=== PATIENT | female | born 1980 | race Caucasian/White ===

== ENCOUNTER 2020-06-09 11:59 | Emergency (ER) | payer OTHER, SELFPAY ==
--- NOTE | ~2020-06-09 | XR_ITS ---
EXAMINATION: XR tibia fibula LT 2V DATE: 06/09/2020 12:58 INDICATION: Left lower leg pain post fall TECHNIQUE: Anteroposterior and lateral views of the left tibia and fibula were obtained. COMPARISON: None. FINDINGS: Alignment is normal. No fracture. Joint spaces are normal. Small plantar calcaneal spur. Soft tissues are unremarkable. No left ankle joint effusion. IMPRESSION: 1. No acute osseous abnormality. Reviewed, dictated and finalized at location A. WASHER
[2020-06-09 12:05] VITALS: BP 149/99; PULSE 121; RESP 20; TEMP 36.9; O2SAT 98
--- NOTE | 2020-06-09 12:27 | ED.LOWEXIN ---
HPI - Extremity Injury (Lower) General Chief Complaint: Extremity Injury, Lower Stated Complaint: 40 YO female w/ slipped and fell, comes into ER c/o left leg pain since fall. Denies LOC or head injury. Related Data Home Medications Medication Instructions Recorded Confirmed atenolol 25 mg PO DAILY 06/09/20 06/09/20 Allergies Allergy/AdvReac Type Severity Reaction Status Date / Time amoxicillin [From Augmentin] Allergy Hives Verified 06/09/20 12:13 clavulanic acid Allergy Hives Verified 06/09/20 12:13 [From Augmentin] ketorolac Allergy Hives Verified 06/09/20 12:13 Penicillins Allergy Hives Verified 06/09/20 12:13 hydrocodone AdvReac Vomiting Verified 06/09/20 12:13 tramadol AdvReac Vomiting Verified 06/09/20 12:13 Review of Systems Review of Systems: All systems reviewed & are unremarkable except as noted in HPI and below Constitutional: Constitutional: Reports no additional constitutional complaints Eyes: Eyes: Reports no additional eye complaints ENT: Reports system reviewed and no additional complaints, except as documented Cardiovascular: Cardiovascular: Reports no additional cardiovascular complaints Respiratory: Respiratory: Reports no additional respiratory complaints Gastrointestinal: Gastrointestinal: Reports no additional gastrointestinal complaints Genitourinary: Genitourinary: Reports no additional female genitourinary complaints Integumentary/Breasts: Skin/Breast: Reports system reviewed and no additional complaints, except as docu Neurologic: Reports system reviewed and no additional complaints, except as documented Psychiatric: Psychiatric: Reports no additional psychiatric complaints [facility] Past Medical History Medical History HTN (hypertension) Kidney stones Exam Const: General: healthy appearing, no acute distress and alert Orientation/consciousness: patient oriented x3 HENMT: Head: normal to inspection Eyes: Conjunctivae: conjunctivae normal Pupils: Equal, round and reactive pupils present Direct Ophthalmoscopy: no photophobia Neck: Neck: normal visual inspection Chest: Chest palpation & inspection: normal inspection of the chest Resp: Effort & Inspection: normal respiratory effort Cardio: Rate: regular rate Rhythm: regular rhythm GI: Inspection: non-distended GI Palp: Yes Soft to palpation, No Tenderness to palpation present (GI), No Guarding due to palpation present (GI) and No Rigid due to palpation Percussion: Yes normal to percussion : General: Yes no CVA tenderness Skin: General skin exam: normal color Rashes: no rashes Neuro: General: patient oriented x3, moves all extremities, no meningeal signs, no focal motor deficits and CN's II-XI intact bilaterally Cranial nerves: Yes Nystagmus not present Speech: normal speech Gait exam (Neuro): Normal gait present Extrem: Other: Left anterior leg pain Psych: Mental Status: mental status grossly normal Thought content: Yes Normal thought content present Course Course Emergency Course: X-Rays engative. D/C home on NSAID's for pain Vital Signs Vital signs: Vital Signs Temperature 98.4 F 06/09/20 12:05 Pulse Rate 121 H 06/09/20 12:05 Respiratory Rate 20 06/09/20 12:05 Blood Pressure 149/99 H 06/09/20 12:05 Pulse Oximetry 98 06/09/20 12:05 Temperature 98.4 F 06/09/20 12:05 Pulse Rate 121 H 06/09/20 12:05 Respiratory Rate 20 06/09/20 12:05 Blood Pressure 149/99 H 06/09/20 12:05 Pulse Oximetry 98 06/09/20 12:05 MDM - Extremity Injury (Lower) Differential Diagnosis Differential diagnosis: Likely ankle sprain and strain, acute internal derangement of knee and other (leg contusion) Medical Records Attestation: I reviewed the patient's medical records. Critical Care Time Critical Care Time Critical Care Time: No Discharge Plan Discharge Clinical Impression: Ankle sprain and strain Contusion Robson
[2020-06-09 14:03] VITALS: RESP 16
== END 2020-06-09 14:05 | disposition home or self-care (01) ==
PROVIDERS: Emergency Provider Family Medicine; PCP Family Medicine
DX: S93.402A Sprain of unspecified ligament of left ankle, initial encounter (principal); S80.12XA Contusion of left lower leg, initial encounter; W19.XXXA Unspecified fall, initial encounter
CPT/HCPCS: 73590; 99283

== ENCOUNTER 2020-08-03 06:37 | Emergency (ER) | payer OTHER, SELFPAY ==
--- NOTE | ~2020-08-03 | CT_ITS ---
EXAMINATION: CT abdomen pelvis wo con EXAM DATE: 08/03/2020 08:17 INDICATION: Bilateral flank pain left worse than right, constipation and diarrhea x2wks. TECHNIQUE: Spiral CT of the abdomen and pelvis was performed without contrast. Axial, coronal and sag ittal images were reviewed. The dose-length product (DLP) for this examination was 782.29 mGy-cm. T he exposure was tailored according to patient size (auto mA exposure control), and iterative reconstr uction (ASIR) was used as additional dose reduction technique. There is no prior study for compariso n. FINDINGS: Small clusters of right calyceal stones, largest cluster measuring about 3 x 6 mm in inferi or calyx. There are regions of right renal cortical scarring. There is 3 mm left inferior calyceal st one. No ureteral stones or hydronephrosis. The uterus is retroverted and morphologically normal. T he bladder is unremarkable. The liver, spleen, adrenal glands and pancreas are unremarkable. There are cholecystectomy clips. There is no retroperitoneal or pelvic lymphadenopathy. Small umbilical fat-containing hernia. The appendix is normal. The stomach and small bowel are unremarkable. There is expected amount of c olonic stool. No free intraperitoneal gas. The heart is normal in size. There are no pericardial or pleural effusions. Several bibasilar pleural-based lung nodules 3 mm or less, likely postinfecti ous. Mild lumbar levoscoliosis. IMPRESSION: 1. Bilateral nephrolithiasis. 2. No hydronephrosis or acute intra-abdominal findings. Reviewed, dictated and finalized at location B. [facility]
[2020-08-03 06:59] VITALS: BP 138/85; PULSE 103; RESP 18; TEMP 36.7; O2SAT 99
--- NOTE | 2020-08-03 07:08 | PC.NURSE ---
covid tested 07/19/20--negative.
--- NOTE | 2020-08-03 07:09 | PC.NURSE ---
Report to KIZZY Castellon.
[2020-08-03] MEDS: ACETAMINOPHEN 500 MG TABLET 1000 MG PO (07:38)
[2020-08-03] MEDS: ONDANSETRON INJ 4 MG/2 ML VIAL IV PUSH (07:39)
[2020-08-03 07:47] LABS: Basophils Absolute Auto 0.06 K/mm3 (0.00-0.10); Basophils Percent Auto 0.7 % (0.0-1.0); Eosinophils Absolute Auto 0.13 K/mm3 (0.02-0.50); Eosinophils Percent Auto 1.6 % (1.0-6.0); Hematocrit 38.7 % (35.0-49.0); Hemoglobin 13.3 g/dL (12.0-15.0); Immature Granulocyte Absolute 0.03 K/mm3 (0.00-0.00); Immature Granulocyte Percent A 0.4 % (0.0-0.0); Lymphocytes Absolute Auto 2.81 K/mm3 (1.10-4.50); Lymphocytes Percent Auto 34.9 % (18.0-42.0); Mean Corpuscular HGB Conc 34.4 g/dL (32.0-36.0); Mean Corpuscular Hemoglobin 30.5 pg (27.0-31.0); Mean Corpuscular Volume 88.8 fL (78.0-102.0); Mean Platelet Volume 9.5 fl (9.2-11.8); Monocytes Absolute Auto 0.53 K/mm3 (0.10-0.90); Monocytes Percent Auto 6.6 % (2.0-11.0); Neutrophils Absolute Auto 4.5 K/mm3 (1.7-7.2); Neutrophils Percent Auto 55.8 % (50.0-70.0); Platelet Count Result 325 K/mm3 (150-420); Red Blood Count 4.36 M/mm3 (4.20-5.40); Red Cell Distribution Width 12.2 % (11.6-14.4); White Blood Count 8.1 K/mm3 (4.8-10.8)
[2020-08-03 07:56] LABS: Add Urine Microscopic? NO; Appearance Urine Clear (Clear); Bilirubin Urine Negative (Negative); Blood Urine Negative (Negative); Color Urine Yellow (Yellow); Glucose Urine UA Negative (Negative); Ketones Urine Negative (Negative); Leukocyte Esterase Ur Negative (Negative); Nitrate Urine Negative (Negative); Protein Urine Negative (Negative); Specific Grav Ur 1.025 (1.010-1.020)
[2020-08-03 08:01] LABS: Pregnancy On Board Control Positive; Urine Pregnancy Test Negative
[2020-08-03 08:02] LABS: Alanine Aminotransferase 43 U/L (14-59); Albumin Level 3.4 g/dL (3.4-5.0); Alkaline Phosphatase 78 U/L (46-116); Anion Gap 9 mmol/L (8-16); Aspartate Amino Transferase 14 U/L (15-37); Bilirubin,Total 0.4 mg/dL (0.00-1.00); Blood Urea Nitrogen 12 mg/dL (7-18); Calcium 8.4 mg/dL (8.5-10.1); Carbon Dioxide 25 mmol/L (21-32); Chloride 105 mmol/L (98-108); Estimated CRCL calculation 50 ml/min; Estimated Glomerular Filt Rate 47; Glucose 107 mg/dL (70-99); Osmolality Calculated 287 mOsm/kg (285-295); Potassium 3.3 mmol/L (3.5-5.1); Sodium 139 mmol/L (136-145); Total Protein 6.9 g/dL (6.4-8.2)
--- NOTE | 2020-08-03 08:38 | ED.BACK ---
HPI - Back Pain/Injury General Chief Complaint: Back Pain/Injury Stated Complaint: Pain middle of back Time Seen by Provider: 08/03/20 07:13 Source: patient Mode of arrival: ambulatory History of Present Illness HPI Narrative: This is a 40-year-old female with a history of kidney stones presents with lower back and flank pain with no dysuria no hematuria no fever chills does have back pain that she describes as dull ache about 6/10 with nausea. Currently there is no chest pain no shortness of breath patient does have a history of small kidney stones has been worked up in the past they are small and nonobstructing at that time. MD elicited complaint: back pain Pertinent past history: prior back pain Onset (ago): day(s) Timing: intermittent Severity: moderate Pain scale (0-10): 6 Similar Symptoms Previously: Yes Quality: dull Location: left flank and right flank Related Data Home Medications Medication Instructions Recorded Confirmed atenolol 25 mg PO DAILY 06/09/20 08/03/20 omeprazole 20 mg PO DAILY 08/03/20 08/03/20 Allergies Allergy/AdvReac Type Severity Reaction Status Date / Time amoxicillin [From Augmentin] Allergy Hives Verified 06/09/20 12:13 clavulanic acid Allergy Hives Verified 06/09/20 12:13 [From Augmentin] ketorolac Allergy Hives Verified 06/09/20 12:13 Penicillins Allergy Hives Verified 06/09/20 12:13 hydrocodone AdvReac Vomiting Verified 06/09/20 12:13 tramadol AdvReac Vomiting Verified 06/09/20 12:13 Review of Systems Review of Systems: All systems reviewed & are unremarkable except as noted in HPI and below PMFSH Past Medical History Medical History HTN (hypertension) Kidney stones Exam Const: General: no acute distress and alert Orientation/consciousness: patient oriented x3 HENMT: Head: normal to inspection Eyes: Conjunctivae: conjunctivae normal Pupils: Equal, round and reactive pupils present EOM: EOMs intact bilaterally Neck: Neck: normal visual inspection, no lymphadenopathy and no meningeal signs Chest: Chest palpation & inspection: normal inspection of the chest Resp: Effort & Inspection: normal respiratory effort Auscultation: clear to auscultation bilaterally Cardio: Rate: regular rate Rhythm: regular rhythm GI: Auscultation: normal bowel sounds : General: Yes no CVA tenderness Urinary Catheter: Urinary Catheter: patent and draining and urine clear Back/Spine/Pelvis: Back: CVA tenderness Skin: General skin exam: normal color Rashes: no rashes Neuro: General: patient oriented x3, moves all extremities and no meningeal signs Extrem: General: normal to inspection and no pedal edema Psych: Appearance: grossly normal Mental Status: mental status grossly normal Affect: normal affect Course Course Emergency Course: Reassessment of patient back pain has improved with g of Tylenol and nausea improved with Zofran continues to have some discomfort but reviewed CT scan and labs with the patient and advised that she is stable to go and to follow with her primary care doctor. Vital Signs Vital signs: Vital Signs Temperature 36.7 C 08/03/20 06:59 Pulse Rate 103 H 08/03/20 06:59 Respiratory Rate 18 08/03/20 06:59 Blood Pressure 138/85 08/03/20 06:59 Pulse Oximetry 99 08/03/20 06:59 Temperature 36.7 C 08/03/20 06:59 Pulse Rate 103 H 08/03/20 06:59 Respiratory Rate 18 08/03/20 06:59 Blood Pressure 138/85 08/03/20 06:59 Pulse Oximetry 99 08/03/20 06:59 MDM - Back Pain/Injury Lab Data Result diagrams: 08/03/20 07:41 08/03/20 07:41 Labs: Lab Results 08/03/20 08/03/20 08/03/20 Range/Units 07:30 07:30 07:41 WBC 8.1 (4.8-10.8) K/mm3 RBC 4.36 (4.20-5.40) M/mm3 Hgb 13.3 (12.0-15.0) g/dL Hct 38.7 (35.0-49.0) % MCV 88.8 (78.0-102.0) fL MCH 30.5 (27.0-31.0) pg MCHC 34.4 (32.0-36.0) g/dL RDW
[2020-08-03 08:55] VITALS: BP 120/88; PULSE 60; RESP 18; O2SAT 98
== END 2020-08-03 08:55 | disposition home or self-care (01) ==
PROVIDERS: Emergency Provider Emergency Medicine; PCP Family Medicine
DX: N20.0 Calculus of kidney (principal); M54.40 Lumbago with sciatica, unspecified side
CPT/HCPCS: 36415; 74176; 80053; 81003; 81025; 85025; 96374; 99283; 99284; J2405

== ENCOUNTER 2020-10-07 13:57 | Emergency (ER) | payer OTHER, SELFPAY ==
[2020-10-07 14:17] VITALS: BP 130/93; PULSE 91; RESP 20; TEMP 36.8; O2SAT 100
--- NOTE | 2020-10-07 14:30 | ED.EAR ---
HPI - Ear Problem General Chief complaint: Ear Stated complaint: inner ear pain Source: patient Mode of arrival: ambulatory Limitations: no limitations History of Present Illness HPI Narrative: this is a 40-year-old female that presents with some chronic sinus discomfort was given a Z-Tian that she finished a course of, and does continue to have muffled crackly bilateral ears with right ear having some drainage with sinus congestion and pressure with postnasal drip low-grade fevers with no shortness of breath no chest pain. MD Complaint: ear pain and decreased hearing Location: right ear ( bilateral ear pressure but right ear has some drainage) Duration: constant Severity: moderate Relieving factors: nothing Exacerbating factors: nothing Context: Reports recent illness Discharge from ear: Reports yes - clear Associated symptoms ear: fever Treatment prior to arrival: none Related Data Home Medications Medication Instructions Recorded Confirmed atenolol 25 mg PO DAILY 06/09/20 10/07/20 omeprazole 40 mg PO DAILY 10/07/20 10/07/20 sucralfate 1 g PO QID 10/07/20 10/07/20 Allergies Allergy/AdvReac Type Severity Reaction Status Date / Time amoxicillin [From Augmentin] Allergy Hives Verified 10/07/20 14:24 clavulanic acid Allergy Hives Verified 10/07/20 14:24 [From Augmentin] ketorolac Allergy Hives Verified 10/07/20 14:24 Penicillins Allergy Hives Verified 10/07/20 14:24 hydrocodone AdvReac Vomiting Verified 10/07/20 14:24 tramadol AdvReac Vomiting Verified 10/07/20 14:24 Review of Systems Review of Systems: All systems reviewed & are unremarkable except as noted in HPI and below PMFSH Past Medical History Medical History HTN (hypertension) Kidney stones Social History Social History Gender identity (if verbalized by the patient): Female Exam Const: General: no acute distress and alert Orientation/consciousness: patient oriented x3 HENMT: Head: normal to inspection Other: Bilateral ear dullness with right ear having some drainage with frontal sinus pressure Eyes: Conjunctivae: conjunctivae normal Pupils: Equal, round and reactive pupils present Neck: Neck: normal visual inspection, no lymphadenopathy and no meningeal signs Chest: Chest palpation & inspection: normal inspection of the chest Resp: Effort & Inspection: normal respiratory effort Auscultation: clear to auscultation bilaterally Cardio: Rate: regular rate Rhythm: regular rhythm Urinary Catheter: Urinary Catheter: patent and draining Back/Spine/Pelvis: Back: no CVA tenderness Skin: General skin exam: normal color Rashes: no rashes Neuro: General: patient oriented x3 and moves all extremities Psych: Appearance: grossly normal Mental Status: mental status grossly normal Affect: normal affect Course Course Emergency Course: patient with some dizziness will prescribe meclizine and will give her a dose while here in the emergency department with some antibiotic ear drop to the right ear. Vital Signs Vital signs: Vital Signs Temperature 36.8 C 10/07/20 14:17 Pulse Rate 10/07/20 14:17 Respiratory Rate 10/07/20 14:17 Blood Pressure 130/93 H 10/07/20 14:17 Pulse Oximetry 100 10/07/20 14:17 Temperature 36.8 C 10/07/20 14:17 Pulse Rate 10/07/20 14:17 Respiratory Rate 10/07/20 14:17 Blood Pressure 130/93 H 10/07/20 14:17 Pulse Oximetry 100 10/07/20 14:17 Medical Decision Making Vital Signs Vital Signs: Vital Signs Temperature 36.8 C 10/07/20 14:17 Pulse Rate 10/07/20 14:17 Respiratory Rate 10/07/20 14:17 Blood Pressure 130/93 H 10/07/20 14:17 Pulse Oximetry 100 10/07/20 14:17 Temperature 36.8 C 10/07/20 14:17 Pulse Rate 10/07/20 14:17 Respiratory Rate 10/07/20 14:17 Blood Pressure 130/93 H 10/07/20 14:17 Pulse Oxime
[2020-10-07] MEDS: NEOMYCIN/POLYMYXIN/HYDROCORT OT SUSP 10 ML BTL (*BKC) 3 DROP RIGHT EAR (14:37)
[2020-10-07] MEDS: MECLIZINE HCL 25 MG TABLET PO (14:37)
[2020-10-07 14:46] VITALS: BP 120/82; PULSE 90; RESP 20; TEMP 36.7; O2SAT 100
== END 2020-10-07 14:56 | disposition home or self-care (01) ==
PROVIDERS: Emergency Provider Emergency Medicine; PCP Family Medicine
DX: H66.91 Otitis media, unspecified, right ear (principal); J01.10 Acute frontal sinusitis, unspecified; I10 Essential (primary) hypertension; Z87.442 Personal history of urinary calculi
CPT/HCPCS: 99283; A9270

== ENCOUNTER 2021-01-14 14:52 | Emergency (ER) | payer OTHER, MEDICAID, SELFPAY ==
[2021-01-14 14:55] VITALS: BP 135/91; PULSE 102; RESP 16; TEMP 37; O2SAT 98
--- NOTE | 2021-01-14 15:29 | ED.HA ---
HPI - Headache General Chief Complaint: Headache Stated Complaint: headache,congestion,fever Time Seen by Provider: 01/14/21 14:57 Source: patient and RN notes reviewed Mode of arrival: ambulatory Limitations: no limitations History of Present Illness MD elicited complaint: headache Onset (ago): day(s) (4) Onset description: gradually Location: generalized Severity: mild Pain scale (0-10): 3 Quality & Timing: aching Exacerbating factors: none Relieving factors: nothing Associated symptoms: fever Treatments prior to arrival: none Related Data Home Medications Medication Instructions Recorded Confirmed atenolol 25 mg PO DAILY 06/09/20 01/14/21 omeprazole 40 mg PO DAILY 10/07/20 01/14/21 sucralfate 1 g PO QID 10/07/20 01/14/21 ondansetron HCl 4 mg PO DAILY PRN 01/14/21 01/14/21 Allergies Allergy/AdvReac Type Severity Reaction Status Date / Time amoxicillin [From Augmentin] Allergy Hives Verified 10/07/20 14:24 clavulanic acid Allergy Hives Verified 10/07/20 14:24 [From Augmentin] ketorolac Allergy Hives Verified 10/07/20 14:24 Penicillins Allergy Hives Verified 10/07/20 14:24 hydrocodone AdvReac Vomiting Verified 10/07/20 14:24 tramadol AdvReac Vomiting Verified 10/07/20 14:24 Review of Systems Review of Systems: All systems reviewed & are unremarkable except as noted in HPI and below Constitutional: Constitutional: Reports as per HPI and Reports no additional constitutional complaints Eyes: Eyes: Reports as per HPI and Reports no additional eye complaints ENT: Reports system reviewed and no additional complaints, except as documented and Reports as per HPI Cardiovascular: Cardiovascular: Reports as per HPI and Reports no additional cardiovascular complaints Respiratory: Respiratory: Reports as per HPI and Reports no additional respiratory complaints Gastrointestinal: Gastrointestinal: Reports as per HPI and Reports no additional gastrointestinal complaints Genitourinary: Genitourinary: Reports no additional female genitourinary complaints and Reports as per HPI Musculoskeletal: Musculoskeletal: Reports no additional musculoskeletal complaints and Reports as per HPI Integumentary/Breasts: Skin/Breast: Reports system reviewed and no additional complaints, except as docu and Reports as per HPI Neurologic: Reports system reviewed and no additional complaints, except as documented and Reports as per HPI Psychiatric: Psychiatric: Reports no additional psychiatric complaints and Reports as per HPI Endocrine: Endocrine: Reports no additional endocrine complaints and Reports as per HPI Hematologic/Lymphatic: Hematologic/Lymphatic: Reports no additional hematologic/lymphatic complaints and Reports as per HPI Allergic/Immunologic: Allergic/Immunologic: Reports no additional allergic/immunologic complaints and Reports as per HPI PMFSH Past Medical History Medical History HTN (hypertension) Kidney stones Social History Social History Gender identity (if verbalized by the patient): Female Exam Const: General: no acute distress and alert Nutritional Appearance: well nourished Orientation/consciousness: patient oriented x3 Limitations: no limitations HENMT: Head: normal to inspection Ears: external ears normal and TM's normal bilaterally General nose exam: Normal external nose present and Normal nares present Mouth: Yes lip normal and Yes moist mucous membranes abnormal Teeth and gingiva: dentition normal Eyes: Conjunctivae: conjunctivae normal Pupils: Equal, round and reactive pupils present EOM: EOMs intact bilaterally Neck: Neck: normal visual inspection Chest: Chest palpation & inspection: normal inspection of the chest Resp: Effort & Inspection: normal respiratory effort Auscultation: clear to auscultation bilaterally Cardio: Rate: regular rate Rhythm: regular rhythm
[2021-01-14] MEDS: guaiFENesin/DEXTROMETHORPHAN 5 ML UDC 10 ML PO (15:37)
[2021-01-14] MEDS: ACETAMINOPHEN 325 MG TABLET 650 MG PO (15:37)
[2021-01-14 16:05] VITALS: RESP 16
== END 2021-01-14 16:05 | disposition home or self-care (01) ==
PROVIDERS: Emergency Provider Emergency Medicine
DX: J02.9 Acute pharyngitis, unspecified (principal)
CPT/HCPCS: 73140; 99283; A9270

== ENCOUNTER 2021-01-24 04:20 | Emergency (ER) | payer OTHER, MEDICAID, SELFPAY ==
--- NOTE | ~2021-01-24 | CT_ITS ---
EXAMINATION: CT diagnostic chest wo con DATE: 01/24/2021 05:44 INDICATION: Heart palpitations TECHNIQUE: Computed tomography (CT) of the chest was performed without intravenous contrast. The dose -length product was 166.64 mGy-cm. Automated exposure control and iterative reconstruction technique were employed. COMPARISON: No prior studies for comparison. FINDINGS: Heart size normal. No significant pleural or pericardial effusion. No thoracic lymphadenopa thy. No pneumothorax. No endobronchial lesions. Small 3 mm right middle lobe nodule, pleural-based, i mage 63. No focal airspace disease. 3 mm nodules in the left lung, likely benign. No acute osseous ab normality. Status post cholecystectomy. There are splenic artery calcifications. IMPRESSION: 1. No acute abnormality of the chest. 2: Small bilateral 3 mm pulmonary nodules, likely benign. Consider follow-up low dose CT chest in 12 months. Reviewed, dictated and finalized at location A. IMPRESSION: 1. No acute abnormality of the chest. 2: Small bilateral 3 mm pulmonary nodules, likely benign. Consider follow-up l ow dose CT chest in 12 months.
[2021-01-24 04:20] VITALS: BP 132/88; PULSE 93; RESP 20; TEMP 37.1; O2SAT 99
--- NOTE | 2021-01-24 04:33 | ECG_ITS ---
Measurements Intervals [place] Rate: 92 P: 34 AL: 144 QRS: -22 QRSD: 97 T: 28 QT: 378 QTc: 468 Interpretive Statements SINUS RHYTHM DELAYED PRECORDIAL R/S TRANSITION BORDERLINE ST ABNORMALITY- HIGH LATERAL LEADS BORDERLINE ECG Electronically Signed On 01-24-2021 7:52:41 CDT by Laz Edwards D.O.
[2021-01-24 05:21] LABS: Basophils Absolute Auto 0.03 K/mm3 (0.00-0.10); Basophils Percent Auto 0.6 % (0.0-1.0); Eosinophils Absolute Auto 0.08 K/mm3 (0.02-0.50); Eosinophils Percent Auto 1.5 % (1.0-6.0); Hematocrit 41.6 % (35.0-49.0); Hemoglobin 14.1 g/dL (12.0-15.0); Immature Granulocyte Absolute 0.01 K/mm3 (0.00-0.00); Immature Granulocyte Percent A 0.2 % (0.0-0.0); Lymphocytes Absolute Auto 2.35 K/mm3 (1.10-4.50); Lymphocytes Percent Auto 44.5 % (18.0-42.0); Mean Corpuscular HGB Conc 33.9 g/dL (32.0-36.0); Mean Corpuscular Hemoglobin 30.1 pg (27.0-31.0); Mean Corpuscular Volume 88.7 fL (78.0-102.0); Mean Platelet Volume 9.8 fl (9.2-11.8); Monocytes Absolute Auto 0.38 K/mm3 (0.10-0.90); Monocytes Percent Auto 7.2 % (2.0-11.0); Neutrophils Absolute Auto 2.4 K/mm3 (1.7-7.2); Platelet Count Result 265 K/mm3 (150-420); Red Blood Count 4.69 M/mm3 (4.20-5.40); Red Cell Distribution Width 12.5 % (11.6-14.4); White Blood Count 5.3 K/mm3 (4.8-10.8)
[2021-01-24 05:30] LABS: SPREG INTERNAL CONTROL Positive; Serum Qual hCG NEG
[2021-01-24 05:35] LABS: Add Urine Microscopic? NO; Appearance Urine Clear (Clear); Bilirubin Urine Negative (Negative); Blood Urine Negative (Negative); Color Urine Light Yellow (Yellow); Glucose Urine UA Negative (Negative); Ketones Urine Negative (Negative); Leukocyte Esterase Ur Negative (Negative); Nitrate Urine Negative (Negative); Protein Urine Negative (Negative); Specific Grav Ur <= 1.005 (1.010-1.020); Urobilinogen Urine 0.2 mg/dL (0.2-1.0); pH Urine 5.5 (5.0-8.0)
[2021-01-24 05:38] LABS: Alanine Aminotransferase 38 U/L (14-59); Albumin Level 3.8 g/dL (3.4-5.0); Alkaline Phosphatase 75 U/L (46-116); Anion Gap 13 mmol/L (8-16); Aspartate Amino Transferase 16 U/L (15-37); Bilirubin,Total 0.6 mg/dL (0.00-1.00); Blood Urea Nitrogen 7 mg/dL (7-18); Calcium 9.1 mg/dL (8.5-10.1); Carbon Dioxide 22 mmol/L (21-32); Chloride 108 mmol/L (98-108); Estimated Glomerular Filt Rate > 60; Glucose 95 mg/dL (70-99); Osmolality Calculated 294 mOsm/kg (285-295); Potassium 3.8 mmol/L (3.5-5.1); Sodium 143 mmol/L (136-145); Total Protein 7.3 g/dL (6.4-8.2)
[2021-01-24 05:59] LABS: NT Pro B Type Natriuretic Pept 78 pg/mL (0-125)
[2021-01-24] MEDS: SODIUM CHLORIDE 0.9% IV 500 ML 999 ML IV CONT (06:01)
[2021-01-24] MEDS: ONDANSETRON INJ 4 MG/2 ML VIAL IV PUSH (06:02)
--- NOTE | 2021-01-24 06:47 | ED.ARRPALP ---
HPI - Arrhythmia/Palpitations General Chief Complaint: Arrhythmia/Palpitations Stated Complaint: Bradycardia Time Seen by Provider: 01/24/21 04:24 Source: patient and RN notes reviewed Mode of arrival: ambulatory Limitations: no limitations History of Present Illness MD complaint: rapid heart beat, heart racing and palpitations Onset (ago): hour(s) (2) Duration: constant Severity: mild Context: occurred during rest Associated symptoms: anxiety Treatments prior to arrival: other (none) Related Data Home Medications Medication Instructions Recorded Confirmed atenolol 25 mg PO DAILY 06/09/20 01/24/21 omeprazole 40 mg PO DAILY 10/07/20 01/24/21 sucralfate 1 g PO QID 10/07/20 01/24/21 Allergies Allergy/AdvReac Type Severity Reaction Status Date / Time amoxicillin [From Augmentin] Allergy Hives Verified 10/07/20 14:24 clavulanic acid Allergy Hives Verified 10/07/20 14:24 [From Augmentin] ketorolac Allergy Hives Verified 10/07/20 14:24 Penicillins Allergy Hives Verified 10/07/20 14:24 hydrocodone AdvReac Vomiting Verified 10/07/20 14:24 tramadol AdvReac Vomiting Verified 10/07/20 14:24 Review of Systems Review of Systems: All systems reviewed & are unremarkable except as noted in HPI and below Constitutional: Constitutional: Reports as per HPI and Reports no additional constitutional complaints Eyes: Eyes: Reports as per HPI and Reports no additional eye complaints ENT: Reports system reviewed and no additional complaints, except as documented and Reports as per HPI Cardiovascular: Cardiovascular: Reports as per HPI and Reports no additional cardiovascular complaints Respiratory: Respiratory: Reports as per HPI and Reports no additional respiratory complaints Gastrointestinal: Gastrointestinal: Reports as per HPI and Reports no additional gastrointestinal complaints Genitourinary: Genitourinary: Reports no additional female genitourinary complaints and Reports as per HPI Musculoskeletal: Musculoskeletal: Reports no additional musculoskeletal complaints and Reports as per HPI Integumentary/Breasts: Skin/Breast: Reports system reviewed and no additional complaints, except as docu and Reports as per HPI Neurologic: Reports system reviewed and no additional complaints, except as documented and Reports as per HPI Psychiatric: Psychiatric: Reports no additional psychiatric complaints and Reports as per HPI Endocrine: Endocrine: Reports no additional endocrine complaints and Reports as per HPI Hematologic/Lymphatic: Hematologic/Lymphatic: Reports no additional hematologic/lymphatic complaints and Reports as per HPI Allergic/Immunologic: Allergic/Immunologic: Reports no additional allergic/immunologic complaints and Reports as per HPI [facility] Past Medical History Medical History HTN (hypertension) Kidney stones Social History Social History Gender identity (if verbalized by the patient): Female Exam Const: General: no acute distress and alert Nutritional Appearance: well nourished Orientation/consciousness: patient oriented x3 HENMT: Head: normal to inspection Ears: external ears normal and TM's normal bilaterally General nose exam: Normal external nose present and Normal nares present Mouth: Yes lip normal and Yes moist mucous membranes Teeth and gingiva: dentition normal Eyes: Conjunctivae: conjunctivae normal Pupils: Equal, round and reactive pupils present EOM: EOMs intact bilaterally Neck: Neck: normal visual inspection Chest: Chest palpation & inspection: normal inspection of the chest Resp: Effort & Inspection: normal respiratory effort Auscultation: clear to auscultation bilaterally Cardio: Rate: regular rate Rhythm: regular rhythm GI: GI Palp: Yes Soft to palpation Percussion: Yes normal to percussion and Yes other (non-tender) Auscultation: normal bowel sounds
[2021-01-24] MEDS: LORazepam (*CRX) 0.5 MG TABLET PO (06:50)
[2021-01-24 06:51] VITALS: BP 140/89; PULSE 87; RESP 20; TEMP 36.8; O2SAT 96
== END 2021-01-24 06:55 | disposition home or self-care (01) ==
PROVIDERS: Emergency Provider Emergency Medicine; PCP Family Medicine
DX: R00.2 Palpitations (principal); F41.9 Anxiety disorder, unspecified
CPT/HCPCS: 36415; 71250; 80053; 81003; 83605; 83880; 84484; 84703; 85025; 93005; 96361; 96374; 99283; 99284; A9270; J2405; J7040

== ENCOUNTER 2021-04-05 19:39 | Emergency (ER) | payer OTHER, SELFPAY ==
[2021-04-05 20:04] VITALS: BP 153/109; PULSE 100; RESP 18; TEMP 36.7; O2SAT 100
--- NOTE | 2021-04-05 20:14 | ED.BACK ---
HPI - Back Pain/Injury General Chief Complaint: Back Pain/Injury Stated Complaint: back pain Source: patient Mode of arrival: ambulatory Limitations: no limitations History of Present Illness HPI Narrative: this is a 32-year-old female that presents with some lower back pain mainly right-sided with some spasm with negative straight leg raising test no radiation of her pain no flank pain no fever chills no known injuries has a chronic back pain that she takes ibuprofen and Flexeril for. There is no dysuria no hematuria no fever chills no saddle paresthesias. MD elicited complaint: back pain Pertinent past history: prior back pain Onset (ago): week(s) Timing: intermittent Severity: mild Pain scale (0-10): 4 Similar Symptoms Previously: Yes Quality: aching and spasming Related Data Home Medications Medication Instructions Recorded Confirmed atenolol 25 mg PO DAILY 06/09/20 01/24/21 sucralfate 1 g PO QID 10/07/20 04/05/21 omeprazole 40 mg PO DAILY 04/05/21 04/05/21 Allergies Allergy/AdvReac Type Severity Reaction Status Date / Time amoxicillin [From Augmentin] Allergy Hives Verified 04/05/21 20:09 clavulanic acid Allergy Hives Verified 04/05/21 20:09 [From Augmentin] ketorolac Allergy Hives Verified 04/05/21 20:09 Penicillins Allergy Hives Verified 04/05/21 20:09 hydrocodone AdvReac Vomiting Verified 04/05/21 20:09 tramadol AdvReac Vomiting Verified 04/05/21 20:09 Review of Systems Review of Systems: All systems reviewed & are unremarkable except as noted in HPI and below PMFSH Past Medical History Medical History HTN (hypertension) Kidney stones Social History Social History Gender identity (if verbalized by the patient): Female Exam Const: General: no acute distress Orientation/consciousness: patient oriented x3 HENMT: Head: normal to inspection Eyes: Conjunctivae: conjunctivae normal Pupils: Equal, round and reactive pupils present Chest: Chest palpation & inspection: normal inspection of the chest Resp: Effort & Inspection: normal respiratory effort : General: Yes no CVA tenderness Urinary Catheter: Urinary Catheter: patent and draining Back/Spine/Pelvis: Back: no CVA tenderness Skin: General skin exam: normal color Rashes: no rashes Neuro: General: patient oriented x3 Psych: Mental Status: mental status grossly normal Affect: normal affect Course Course Emergency Course: Patient with some chronic back pain has cause some spasm currently on Flexeril will give her a dose of Tylenol and advised to follow-up with primary Vital Signs Vital signs: Vital Signs Temperature 36.7 C 04/05/21 20:04 Pulse Rate 100 04/05/21 20:04 Respiratory Rate 18 04/05/21 20:04 Blood Pressure 153/109 H 04/05/21 20:04 Pulse Oximetry 100 04/05/21 20:04 Temperature 36.7 C 04/05/21 20:04 Pulse Rate 100 04/05/21 20:04 Respiratory Rate 18 04/05/21 20:04 Blood Pressure 153/109 H 04/05/21 20:04 Pulse Oximetry 100 04/05/21 20:04 Critical Care Time Critical Care Time Critical Care Time: No Discharge Plan Discharge Clinical Impression: Strain of lumbar region Qualifiers: Encounter type: initial encounter Qualified Code(s): S39.012A - Strain of muscle, fascia and tendon of lower back, initial encounter Patient Disposition: Home, Self-Care Condition: Stable Instructions: Antibiotic Form, Acute Low Back Pain (ED) Additional Instructions: Advised continue Flexeril and ibuprofen and follow-up with primary care physician as soon as possible for further evaluation treatment. Prescriptions: No Action atenolol 25 mg tablet 25 mg PO DAILY RF: 0 sucralfate 1 gram tablet 1 g PO QID RF: 0 lorazepam [Ativan] 0.5 mg tablet 0.5 mg PO BID PRN (Reason: anxiety) Qty: 6 RF: 0 omeprazole 40 mg capsule,delayed release(DR/EC)
[2021-04-05] MEDS: ACETAMINOPHEN 500 MG TABLET 1000 MG PO (20:18)
== END 2021-04-05 20:21 | disposition home or self-care (01) ==
PROVIDERS: Emergency Provider Emergency Medicine; PCP Family Medicine
DX: S39.012A Strain of muscle, fascia and tendon of lower back, initial encounter (principal)
CPT/HCPCS: 99282

== ENCOUNTER 2021-06-01 11:41 | Emergency (ER) | payer OTHER, SELFPAY ==
[2021-06-01 11:47] VITALS: BP 139/95; PULSE 104; RESP 16; TEMP 36.9; O2SAT 98
--- NOTE | 2021-06-01 11:58 | ED.BACK ---
HPI - Back Pain/Injury General Chief Complaint: Back Pain/Injury Stated Complaint: rt collar bone & mid back pain Time Seen by Provider: 06/01/21 12:00 Source: patient Mode of arrival: ambulatory Limitations: no limitations History of Present Illness HPI Narrative: 41-year-old woman with a history of back pain and anxiety comes in today complaining of pain in her right shoulder, her mid back On the left, and chest pressure and upper portions. She denies shortness of breath, fever, nausea, vomiting, cough or cold symptoms, vomiting. She states that she has IBS and has had nausea and diarrhea lately. She has had the COVID vaccine. She states she had a cardiac catheterization in January 2021 which was normal. Her mother this past year and states this is her 1st Nichole and birthday without her. She takes Benadryl every night to help her sleep. MD elicited complaint: back pain Pertinent past history: prior back pain Onset (ago): day(s) (2) Timing: constant Severity: moderate Quality: aching (Back and neck) and other (Chest pressure) Location: thoracic spine Radiation: none Exacerbating factors: none Relieving factors: none Associated symptoms: myalgias Related Data Home Medications Medication Instructions Recorded Confirmed omeprazole 40 mg PO DAILY 04/05/21 04/05/21 cephalexin 500 mg PO TID 06/01/21 06/01/21 dicyclomine 10 mg PO DAILY 06/01/21 06/01/21 Allergies Allergy/AdvReac Type Severity Reaction Status Date / Time amoxicillin [From Augmentin] Allergy Hives Verified 06/01/21 11:59 clavulanic acid Allergy Hives Verified 06/01/21 11:59 [From Augmentin] codeine Allergy Anxiety Verified 06/01/21 12:01 fentanyl Allergy Anxiety Verified 06/01/21 12:01 ketorolac Allergy Hives Verified 06/01/21 11:59 morphine Allergy Anxiety Verified 06/01/21 12:01 Penicillins Allergy Hives Verified 06/01/21 11:59 hydrocodone AdvReac Vomiting Verified 06/01/21 11:59 tramadol AdvReac Vomiting Verified 06/01/21 11:59 Review of Systems Review of Systems: All systems reviewed & are unremarkable except as noted in HPI and below Constitutional: Constitutional: Denies chills, Denies fever(s) and Denies weakness Eyes: Eyes: Denies change in vision and Denies photophobia ENT: Denies nasal congestion and Denies sore throat Cardiovascular: Cardiovascular: Reports chest pain and Denies radiating jaw, neck or arm pain Respiratory: Respiratory: Denies cough and Denies dyspnea Gastrointestinal: Gastrointestinal: Denies abdominal pain, Reports diarrhea, Reports nausea and Denies vomiting Genitourinary: Genitourinary: Denies hematuria, Denies nocturia and Denies dysuria Musculoskeletal: Musculoskeletal: Denies arthralgias and Denies joint swelling Integumentary/Breasts: Skin/Breast: Denies pruritus, Denies erythema and Denies rash Neurologic: Denies vertigo, Denies dizziness, Denies syncope and Denies focal weakness Psychiatric: Psychiatric: Reports anxiety and Reports depression Endocrine: Endocrine: Denies fatigue and Denies polydipsia Allergic/Immunologic: Allergic/Immunologic: Denies lip swelling and Denies throat swelling PMFSH Past Medical History Medical History HTN (hypertension) Kidney stones Social History Social History (Updated 06/01/21 @ 12:15 by Carter Augustin MD) Tobacco type: e-cigarettes/vaping Alcohol intake: never Substance use: never Living arrangements: with family Gender identity (if verbalized by the patient): Female Exam Const: General: healthy appearing Orientation/consciousness: patient oriented x3 Limitations: no limitations and altered mental status Other: Tearful HENMT: Ears: external ears normal, TM's normal bilaterally and EAC's normal General nose exam: Normal nares present Face and sinus: normal facial exam Mouth: Yes moist mucous membranes Throat: posterior oropharynx normal Eyes: Conjuncti
--- NOTE | 2021-06-01 12:08 | ECG_ITS ---
Measurements Intervals [place] Rate: 94 P: 48 WI: 152 QRS: -23 QRSD: 79 T: 42 QT: 362 QTc: 454 Interpretive Statements SINUS RHYTHM DELAYED PRECORDIAL R/S TRANSITION BORDERLINE ECG Electronically Signed On 06-01-2021 17:02:45 PHYSICIAN SPECIALIST by Laz Edwards D.O.
[2021-06-01 12:22] LABS: Appearance Urine Clear (Clear); Bilirubin Urine Negative (Negative); Color Urine Light Yellow (Yellow); Glucose Urine UA Negative (Negative); Ketones Urine Negative (Negative); Leukocyte Esterase Ur Negative (Negative); Nitrate Urine Negative (Negative); Protein Urine Negative (Negative); Specific Grav Ur <= 1.005 (1.010-1.020); Urobilinogen Urine 0.2 mg/dL (0.2-1.0)
[2021-06-01 12:23] LABS: Add Urine Microscopic? NO; Blood Urine Negative (Negative)
[2021-06-01 12:45] VITALS: BP 138/90; PULSE 97; RESP 16; TEMP 36.6; O2SAT 98
== END 2021-06-01 12:52 | disposition home or self-care (01) ==
PROVIDERS: Emergency Provider Emergency Medicine; PCP Family Medicine
DX: M54.2 Cervicalgia (principal); M54.6 Pain in thoracic spine; F41.9 Anxiety disorder, unspecified
CPT/HCPCS: 81003; 93005; 99283

== ENCOUNTER 2021-06-17 13:43 | Emergency (ER) | payer OTHER, SELFPAY ==
--- NOTE | ~2021-06-17 | XR_ITS ---
EXAMINATION: XR chest 2V DATE: 06/17/2021 16:46 INDICATION: Chest heaviness TECHNIQUE: PA and lateral views of the chest are obtained. COMPARISON: None available FINDINGS: The lungs are free of acute opacities. There is no pleural effusion or pneumothorax. The ca rdiomediastinal silhouette is normal. The visualized bones and soft tissues are unremarkable. Surgica l clips in the right upper quadrant are likely from prior cholecystectomy. IMPRESSION: 1. No acute cardiopulmonary abnormality. Reviewed, dictated and finalized at location [facility]. GATOR OVERHEAD
--- NOTE | ~2021-06-17 | CT_ITS ---
EXAMINATION: CT soft tissue neck w con DATE: 06/17/2021 16:47 INDICATION: Odynophagia TECHNIQUE: Computed tomography (CT) of the neck was performed with 75 cc of Omnipaque 350 intravenous contrast. The dose-length product (DLP) was 434.33 mGy-cm. Automated exposure control and iterative reconstruction technique were employed. COMPARISON: None FINDINGS: The soft tissues are unremarkable. No fluid collection or cellulitis are identified. There are no pathologically enlarged cervical lymph nodes. The visualized osseous structures are unremarkab le. The prevertebral soft tissues are normal. IMPRESSION: 1. No CT correlate for the patient's symptoms. Reviewed, dictated and finalized at location [facility]. ODITY MERCHANT
--- NOTE | 2021-06-17 14:10 | ED.URI ---
HPI - URI/Sore Throat General Chief Complaint: Upper Respiratory Infection Stated Complaint: dizziness, headache, nausea, sore throat Time Seen by Provider: 06/17/21 14:10 Source: patient Mode of arrival: ambulatory Limitations: no limitations History of Present Illness HPI Narrative: 41-year-old woman comes in today complaining of foreign body sensation or lump in her throat, throat pain, diarrhea, headache and nausea that has been present for over 3 weeks. She states she had blood in her stool at the onset of the diarrhea and she states she is unable to tolerate solid food. She also complains of chest heaviness but no shortness of breath, cough, fever, vomiting. Zofran is not helping her nausea. MD elicited complaint: sore throat and nasal congestion Onset (ago): week(s) (3) Consistency: constant and progressively worsening Severity: severe Able to tolerate fluids by mouth: Yes Exacerbating factors: swallowing Relieving factors: nothing Context: sick contacts (Children and are sick) Associated symptoms: headache, nasal congestion, sore throat and chest pain (Heaviness) Treatments prior to arrival: other (Zofran) Related Data Home Medications Medication Instructions Recorded Confirmed omeprazole 20 mg PO BID 04/05/21 06/17/21 Allergies Allergy/AdvReac Type Severity Reaction Status Date / Time amoxicillin [From Augmentin] Allergy Hives Verified 06/01/21 11:59 clavulanic acid Allergy Hives Verified 06/01/21 11:59 [From Augmentin] codeine Allergy Anxiety Verified 06/01/21 12:01 fentanyl Allergy Anxiety Verified 06/01/21 12:01 ketorolac Allergy Hives Verified 06/01/21 11:59 morphine Allergy Anxiety Verified 06/01/21 12:01 Penicillins Allergy Hives Verified 06/01/21 11:59 hydrocodone AdvReac Vomiting Verified 06/01/21 11:59 tramadol AdvReac Vomiting Verified 06/01/21 11:59 Review of Systems Constitutional: Constitutional: Denies chills, Reports fatigue, Denies fever(s) and Reports weakness Eyes: Eyes: Denies change in vision and Denies photophobia ENT: Reports dysphagia, Reports nasal congestion and Reports sore throat Cardiovascular: Cardiovascular: Reports chest pain (Pressure) and Denies radiating jaw, neck or arm pain Respiratory: Respiratory: Denies cough, Denies dyspnea and Denies wheezing Gastrointestinal: Gastrointestinal: Reports abdominal pain, Reports diarrhea, Reports nausea and Reports vomiting Genitourinary: Genitourinary: Denies nocturia and Denies dysuria Musculoskeletal: Musculoskeletal: Denies back pain, Denies arthralgias and Denies joint swelling Integumentary/Breasts: Skin/Breast: Denies pruritus, Denies erythema and Denies rash Neurologic: Denies vertigo, Reports dizziness, Denies syncope and Reports headache(s) Allergic/Immunologic: Allergic/Immunologic: Denies lip swelling and Denies throat swelling PMFSH Past Medical History Medical History HTN (hypertension) Kidney stones Social History Social History Tobacco type: e-cigarettes/vaping Alcohol intake: never Substance use: never Gender identity (if verbalized by the patient): Female Exam Const: General: healthy appearing and alert Orientation/consciousness: patient oriented x3 Limitations: no limitations Other: Mild acute distress. HENMT: Ears: external ears normal and EAC's normal Face and sinus: normal facial exam Mouth: Yes dry mucous membranes Throat: posterior oropharynx normal Eyes: Conjunctivae: conjunctivae normal Pupils: Equal, round and reactive pupils present EOM: EOMs intact bilaterally Resp: Effort & Inspection: normal respiratory effort and not labored Auscultation: clear to auscultation bilaterally, no rales, no rhonchi and wheezes (Scattered late expiratory) Cardio: Rate: regular rate Rhythm: regular rhythm Heart sounds: no murmurs GI: GI Palp: No Soft to palpati
[2021-06-17 14:20] VITALS: BP 134/93; BP 137/98; BP 139/97; PULSE 100; PULSE 105; PULSE 117
[2021-06-17 14:29] VITALS: BP 140/94; PULSE 104; RESP 20; TEMP 36.6; O2SAT 98
[2021-06-17 14:33] VITALS: O2SAT 98
[2021-06-17] MEDS: SODIUM CHLORIDE 0.9% IV 1,000 ML 999 ML IV CONT ×2 (14:46→15:56)
[2021-06-17] MEDS: METOCLOPRAMIDE HCL INJ 10 MG/2 ML VIAL IV PUSH (14:48)
[2021-06-17 15:06] LABS: SARS-CoV-2 RNA PCR Negative (Negative)
[2021-06-17 15:08] LABS: Basophils Absolute Auto 0.04 K/mm3 (0.00-0.10); Basophils Percent Auto 0.6 % (0.0-1.0); Eosinophils Absolute Auto 0.01 K/mm3 (0.02-0.50); Eosinophils Percent Auto 0.2 % (1.0-6.0); Hematocrit 39.3 % (35.0-49.0); Hemoglobin 13.4 g/dL (12.0-15.0); Immature Granulocyte Absolute 0.02 K/mm3 (0.00-0.00); Immature Granulocyte Percent A 0.3 % (0.0-0.0); Lymphocytes Absolute Auto 1.01 K/mm3 (1.10-4.50); Lymphocytes Percent Auto 15.6 % (18.0-42.0); Mean Corpuscular HGB Conc 34.1 g/dL (32.0-36.0); Mean Corpuscular Hemoglobin 30.5 pg (27.0-31.0); Mean Corpuscular Volume 89.3 fL (78.0-102.0); Mean Platelet Volume 9.7 fl (9.2-11.8); Monocytes Absolute Auto 0.37 K/mm3 (0.10-0.90); Monocytes Percent Auto 5.7 % (2.0-11.0); Neutrophils Percent Auto 77.6 % (50.0-70.0); Platelet Count Result 291 K/mm3 (150-420); Red Cell Distribution Width 11.7 % (11.6-14.4); White Blood Count 6.5 K/mm3 (4.8-10.8)
[2021-06-17 15:10] LABS: Appearance Urine Clear (Clear); Bilirubin Urine Negative (Negative); Color Urine Light Yellow (Yellow); Glucose Urine UA Negative (Negative); Ketones Urine 1+ (Negative); Leukocyte Esterase Ur Negative (Negative); Nitrate Urine Negative (Negative); Protein Urine Negative (Negative); Specific Grav Ur <= 1.005 (1.010-1.020); Urobilinogen Urine 0.2 mg/dL (0.2-1.0)
[2021-06-17 15:13] LABS: Pregnancy On Board Control Positive; Urine Pregnancy Test Negative
[2021-06-17 15:20] LABS: Add Urine Microscopic? YES; Blood Urine Trace-Intact (Negative); Squamous Epithelial Cell Urine Rare /hpf (Few); WBC Urine 0-3 /hpf (0-3)
[2021-06-17 15:21] LABS: Bacteria Urine None seen /hpf
[2021-06-17 15:37] LABS: Alanine Aminotransferase 19 U/L (14-59); Albumin Level 3.9 g/dL (3.4-5.0); Alkaline Phosphatase 78 U/L (46-116); Anion Gap 14 mmol/L (8-16); Aspartate Amino Transferase 10 U/L (15-37); Bilirubin,Total 0.8 mg/dL (0.00-1.00); Blood Urea Nitrogen 6 mg/dL (7-18); Calcium 8.5 mg/dL (8.5-10.1); Carbon Dioxide 22 mmol/L (21-32); Chloride 105 mmol/L (98-108); Estimated CRCL calculation 62 ml/min; Estimated Glomerular Filt Rate > 60; Glucose 93 mg/dL (70-99); Osmolality Calculated 289 mOsm/kg (285-295); Potassium 3.5 mmol/L (3.5-5.1); Sodium 141 mmol/L (136-145); Thyroid Stimulating Hormone 2.59 uIU/mL (0.36-3.74); Total Protein 7.4 g/dL (6.4-8.2)
[2021-06-17 15:59] LABS: CRP < 0.2 mg/dL (0.0-0.9)
[2021-06-17 15:59] LABS: Occult Blood Negative (Negative)
[2021-06-17 18:23] VITALS: BP 147/100; PULSE 94; RESP 20; TEMP 36.7; O2SAT 99
== END 2021-06-17 18:28 | disposition home or self-care (01) ==
PROVIDERS: Emergency Provider Emergency Medicine; PCP Family Medicine
DX: J02.9 Acute pharyngitis, unspecified (principal); R19.7 Diarrhea, unspecified; Z20.822 Contact with and (suspected) exposure to COVID-19
CPT/HCPCS: 36415; 70491; 71046; 80053; 81001; 81025; 83605; 84443; 85025; 86140; 87040; 87045; 87081; 87086; 87088; 87269; 87272; 87324; 87427; 87880; 89055; 96361; 96374; 99283; 99284; C9803; J2765; J7030; Q9967; U0003; U0005

== ENCOUNTER 2021-06-28 11:14 | Emergency (ER) | payer OTHER, SELFPAY ==
--- NOTE | ~2021-06-28 | XR_ITS ---
EXAMINATION: XR chest 2V EXAM DATE: 06/28/2021 13:45 INDICATION: Shortness of breath with heart palpitation for 1 month. TECHNIQUE: Frontal and lateral projections of the chest obtained and reviewed. Comparison is made to prior examination from 06/17/2021. FINDINGS: The lungs are clear. There are no pleural effusions. The cardiomediastinal silhouette is within normal limits. There is no pneumothorax suspected. The bones and soft tissues are unremarkab le. There are cholecystectomy clips. There is no significant interval change. IMPRESSION: Normal chest x-ray exam. Reviewed, dictated and finalized at location [facility]. LFURIZER HAND IMPRESSION: Normal chest x-ray exam.
[2021-06-28 11:38] VITALS: BP 144/94; PULSE 114; RESP 18; TEMP 36.7; O2SAT 99
--- NOTE | 2021-06-28 11:40 | ECG_ITS ---
Measurements Intervals [place] Rate: 104 P: 57 OR: 153 QRS: -29 QRSD: 93 T: 62 QT: 350 QTc: 461 Interpretive Statements SINUS TACHYCARDIA DELAYED PRECORDIAL R/S TRANSITION BORDERLINE ST-T WAVE ABNORMALITY- ANTEROLAT/HIGH LAT LEADS BORDERLINE ECG Electronically Signed On 06-28-2021 11:46:03 MENTAL HEALTH WORKER by Laz Edwards D.O.
[2021-06-28] MEDS: SODIUM CHLORIDE 0.9% IV 1,000 ML 999 ML IV CONT (12:36)
[2021-06-28 12:37] LABS: Basophils Absolute Auto 0.05 K/mm3 (0.00-0.10); Basophils Percent Auto 0.7 % (0.0-1.0); Eosinophils Absolute Auto 0.05 K/mm3 (0.02-0.50); Eosinophils Percent Auto 0.7 % (1.0-6.0); Hemoglobin 13.6 g/dL (12.0-15.0); Immature Granulocyte Absolute 0.02 K/mm3 (0.00-0.00); Immature Granulocyte Percent A 0.3 % (0.0-0.0); Lymphocytes Absolute Auto 1.23 K/mm3 (1.10-4.50); Lymphocytes Percent Auto 17.1 % (18.0-42.0); Mean Corpuscular HGB Conc 34.9 g/dL (32.0-36.0); Mean Corpuscular Hemoglobin 31.1 pg (27.0-31.0); Monocytes Absolute Auto 0.41 K/mm3 (0.10-0.90); Monocytes Percent Auto 5.7 % (2.0-11.0); Neutrophils Absolute Auto 5.4 K/mm3 (1.7-7.2); Neutrophils Percent Auto 75.5 % (50.0-70.0); Platelet Count Result 281 K/mm3 (150-420); Red Blood Count 4.38 M/mm3 (4.20-5.40); Red Cell Distribution Width 12.1 % (11.6-14.4); White Blood Count 7.2 K/mm3 (4.8-10.8)
[2021-06-28 12:38] LABS: Add Urine Microscopic? NO; Appearance Urine Clear (Clear); Bilirubin Urine Negative (Negative); Blood Urine Negative (Negative); Color Urine Light Yellow (Yellow); Glucose Urine UA Negative (Negative); Ketones Urine Negative (Negative); Leukocyte Esterase Ur Negative (Negative); Nitrate Urine Negative (Negative); Protein Urine Negative (Negative); Specific Grav Ur <= 1.005 (1.010-1.020); Urobilinogen Urine 0.2 mg/dL (0.2-1.0)
[2021-06-28 12:52] LABS: Alanine Aminotransferase 28 U/L (14-59); Albumin Level 3.8 g/dL (3.4-5.0); Alkaline Phosphatase 67 U/L (46-116); Anion Gap 10 mmol/L (8-16); Aspartate Amino Transferase 11 U/L (15-37); Bilirubin,Total 0.5 mg/dL (0.00-1.00); Blood Urea Nitrogen 5 mg/dL (7-18); Calcium 9.1 mg/dL (8.5-10.1); Carbon Dioxide 25 mmol/L (21-32); Chloride 105 mmol/L (98-108); Estimated CRCL calculation 64 ml/min; Estimated Glomerular Filt Rate > 60; Glucose 100 mg/dL (70-99); Magnesium 2.1 mg/dL (1.8-2.4); Osmolality Calculated 287 mOsm/kg (285-295); Potassium 3.4 mmol/L (3.5-5.1); Sodium 140 mmol/L (136-145); Total Protein 7.1 g/dL (6.4-8.2)
[2021-06-28 12:59] LABS: Lactic Acid Reflex 0.8 mmol/L (0.4-2.0)
[2021-06-28 13:15] LABS: SARS-CoV-2 RNA PCR Negative (Negative)
--- NOTE | 2021-06-28 13:31 | PC.NURSE ---
Radiology notified of negative covid and asked to take pt for exam.
--- NOTE | 2021-06-28 14:08 | ED.GENADULT ---
HPI - General Adult General Chief complaint: Unspecified Stated complaint: FINGERTIPS NUMB CHEST PAIN Source: patient Mode of arrival: ambulatory Limitations: no limitations History of Present Illness HPI narrative: patient with some history of decreased potassium level was seen about 4 days ago at [facility] for the same problem and was given a dose of oral potassium, currently the patient presents with symptoms of numbness in her fingertips and some chest discomfort with no shortness of breath no fever chills no nausea vomiting no abdominal pain no dysuria. Onset (ago): day(s) Related Data Home Medications Medication Instructions Recorded Confirmed omeprazole 20 mg PO BID 04/05/21 06/17/21 dicyclomine mg 06/28/21 ondansetron HCl 4 mg PO DAILY 06/28/21 06/28/21 sucralfate See Rx Instructions .ROUTE .COMPLEX 06/28/21 06/28/21 Allergies Allergy/AdvReac Type Severity Reaction Status Date / Time amoxicillin [From Augmentin] Allergy Hives Verified 06/28/21 13:49 clavulanic acid Allergy Hives Verified 06/28/21 13:49 [From Augmentin] codeine Allergy Anxiety Verified 06/28/21 13:49 fentanyl Allergy Anxiety Verified 06/28/21 13:49 ketorolac Allergy Hives Verified 06/28/21 13:49 morphine Allergy Anxiety Verified 06/28/21 13:49 Penicillins Allergy Hives Verified 06/28/21 13:49 hydrocodone AdvReac Vomiting Verified 06/28/21 13:49 tramadol AdvReac Vomiting Verified 06/28/21 13:49 Review of Systems Review of Systems: All systems reviewed & are unremarkable except as noted in HPI and below PMFSH Past Medical History Medical History HTN (hypertension) Kidney stones Social History Social History Tobacco type: e-cigarettes/vaping Alcohol intake: never Substance use: never Gender identity (if verbalized by the patient): Female Exam Const: General: cooperative, healthy appearing and comfortable HENMT: Head: normal to inspection Ears: hearing grossly normal bilaterally General nose exam: Normal external nose present Face and sinus: normal facial exam Mouth: Yes Normal oral and palatal mucosa present Throat: posterior oropharynx normal Eyes: General: appearance normal, both eyes and all related structures EOM: EOMs intact bilaterally Neck: Neck: normal visual inspection, full ROM and no lymphadenopathy Chest: Chest palpation & inspection: normal inspection of the chest and normal palpation of entire chest wall Resp: Effort & Inspection: normal respiratory effort and able to speak in complete sentences Cardio: Jugular venous distension: no JVD Palpation: normal PMI Rate: regular rate Rhythm: regular rhythm GI: Inspection: normal to inspection Auscultation: normal bowel sounds Back/Spine/Pelvis: Back: no CVA tenderness Skin: General skin exam: normal color and no rashes or lesions noted Neuro: General: oriented to person, oriented to place and oriented to time Extrem: Right lower extremity: normal to inspection and full ROM Psych: Appearance: grossly normal and well kempt Course Course Emergency Course: Labs reviewed with patient, x-ray reviewed with patient, the patient is COVID negative potassium level was 3.4 patient states that it was 3.7 2 days ago, and will send in potassium supplement along with advising patient to take magnesium 500mg [id number] daily for the next week, and follow up with her primary care physician. Vital Signs Vital signs: Vital Signs Temperature 36.7 C 06/28/21 11:38 Pulse Rate 114 H 06/28/21 11:38 Respiratory Rate 18 06/28/21 11:38 Blood Pressure 144/94 H 06/28/21 11:38 Pulse Oximetry 99 06/28/21 11:38 Temperature 36.7 C 06/28/21 11:38 Pulse Rate 114 H 06/28/21 11:38 Respiratory Rate 18 06/28/21 11:38 Blood Pressure 144/94 H 06/28/21 11:38 Pulse Oximetry 99 06/28/21 11:38 Medical Decision
[2021-06-28 14:31] VITALS: BP 135/79; PULSE 60; RESP 18; O2SAT 100
== END 2021-06-28 14:33 | disposition home or self-care (01) ==
PROVIDERS: Emergency Provider Emergency Medicine; PCP Family Medicine
DX: E87.6 Hypokalemia (principal); Z20.822 Contact with and (suspected) exposure to COVID-19
CPT/HCPCS: 36415; 71046; 80053; 81003; 83605; 83735; 85025; 93005; 96360; 99283; C9803; J7030; U0003; U0005

== ENCOUNTER 2021-09-04 20:39 | Emergency (ER) | payer OTHER, SELFPAY ==
--- NOTE | ~2021-09-04 | CT_ITS ---
EXAMINATION: CT abdomen pelvis wo con DATE: 09/04/2021 21:49 INDICATION: Right lower quadrant abdominal pain, right flank pain. History of kidney stones. TECHNIQUE: Computed tomography (CT) of the abdomen and pelvis was performed without intravenous contr ast. Automated exposure control and iterative reconstruction technique were employed. Exam dose: 334 .07 mGy-cm total exam DLP. COMPARISON: None. FINDINGS: The lung bases are clear. Normal heart size. No pericardial or pleural effusion. Status post cholecystectomy. No hepatic, splenic, pancreatic, adrenal or renal space-occupying mass l esion is evident. There is right renal scarring. Approximately 4 mm nonobstructing lower pole left renal calculus. Approximately 4 or 5 nonobstructing right renal calculi, the largest measuring up to approximately 7. 5 mm. No ureteral calculus or hydroureteronephrosis. Normal caliber of the abdominal aorta. No intraperitoneal or retroperitoneal or pelvic mass lesion or adenopathy or ascites. Retroverted uterus. The urinary bladder is unremarkable. Normal appendix. No bowel obstruction, bowel wall thickening, pneumatosis or intraperitoneal free air . Small fat-containing umbilical hernia. IMPRESSION: Bilateral nonobstructive nephrolithiasis Chronic right renal scarring Normal appendix Status post cholecystectomy Reviewed, dictated and finalized at Location [facility]. Reviewed, dictated and finalized at location A.
[2021-09-04 21:05] VITALS: BP 151/91; PULSE 91; RESP 18; TEMP 37; O2SAT 100
--- NOTE | 2021-09-04 21:05 | ED.ABDPAIN ---
HPI - Abdominal Pain General Chief Complaint: Abdominal Pain Stated Complaint: PELVIC PAIN, FEELS HOT Time Seen by Provider: 09/04/21 21:05 History of Present Illness HPI narrative: 41-year-old female patient is here with complaints of right lower abdomen and flank area pain off and on for the last 2 days. The patient states that for last few days she has been feeling a sensation of warmth from her pelvis upwards to the top of her head. She denies any hot flashes. She denies any fever or chills. Denies any nausea or vomiting. Denies any urinary symptoms. Patient states that she has been under care of her primary care provider for a multitude of problems including feeling flushed all the time as well as having 6 episodes of low blood sugar and in the last month and a half she has noticed some intermittent leakage from the right breast area. The patient is currently on Nexplanon and states that she has not been sexually active for the last 6 months. Apparently patient has been dealing with the variety of symptoms since May and has undergone a cardiac catheterization which is cleared her cardiac status and is currently waiting to be seen by an director data analytics and has an appointment in October. Her current medication list including fluids omeprazole as well as potassium supplement and sucralfate. Patient also takes metoclopramide every 6 hours as needed. Related Data Home Medications Medication Instructions Recorded Confirmed omeprazole 20 mg PO BID 04/05/21 06/17/21 sucralfate See Rx Instructions .ROUTE .COMPLEX 06/28/21 06/28/21 Allergies Allergy/AdvReac Type Severity Reaction Status Date / Time amoxicillin [From Augmentin] Allergy Hives Verified 09/04/21 21:31 clavulanic acid Allergy Hives Verified 09/04/21 21:31 [From Augmentin] codeine Allergy Anxiety Verified 09/04/21 21:31 fentanyl Allergy Anxiety Verified 09/04/21 21:31 ketorolac Allergy Hives Verified 09/04/21 21:31 morphine Allergy Anxiety Verified 09/04/21 21:31 Penicillins Allergy Hives Verified 09/04/21 21:31 hydrocodone AdvReac Vomiting Verified 09/04/21 21:31 tramadol AdvReac Vomiting Verified 09/04/21 21:31 Review of Systems Review of Systems: All systems reviewed & are unremarkable except as noted in HPI and below PMFSH Past Medical History Medical History HTN (hypertension) Kidney stones Social History Social History Tobacco type: e-cigarettes/vaping Alcohol intake: never Substance use: never Gender identity (if verbalized by the patient): Female Exam Narrative: Alert female patient in no acute distress but very anxious. Vital signs are stable. Patient has a temp of 98? SpO2 on room air is 100%. Blood pressure is slightly elevated at 150 1/91. HEENT: normocephalic midsize pupils equal and react to light. No nystagmus. EOMs intact. Oral mucous membranes are pink and moist . Neck is supple. Chest wall is nontender. Breath sounds are audible bilaterally. Breasts are soft and nontender and there is no discharge at the present time. Heart tones are regular. Abdomen is soft with active bowel sounds. Patient does have tenderness the right lower and suprapubic area without any guarding or rigidity or rebound. Pelvic exam has been deferred at this time. Extremities are normal. Skin is warm and dry color is normal. Neurologic exam is grossly normal. Patient is somewhat anxious but has a normal thought process. Course Course Emergency Course: Labs have been reviewed. They are all normal. Urinalysis is normal. CT abdomen and pelvis without dye shows no obstructing urinary calculus. Patient does have some nonobstructing stones bilaterally. The patient was offered pain medication however she claims that she is allergic to Toradol and does not want any other medicine. She states that she will take Tylenol on
[2021-09-04 21:15] VITALS: BP 125/86; PULSE 85; RESP 19; O2SAT 100
[2021-09-04 21:29] LABS: Glucose Point of Care 77 mg/dl (65-105)
--- NOTE | 2021-09-04 21:29 | PC.NURSE ---
bedside blood glucose 77. md becker notified.
[2021-09-04 21:30] LABS: Basophils Absolute Auto 0.05 K/mm3 (0.00-0.10); Basophils Percent Auto 0.5 % (0.0-1.0); Eosinophils Absolute Auto 0.06 K/mm3 (0.02-0.50); Eosinophils Percent Auto 0.7 % (1.0-6.0); Hematocrit 39.9 % (35.0-49.0); Hemoglobin 13.3 g/dL (12.0-15.0); Immature Granulocyte Absolute 0.04 K/mm3 (0.00-0.00); Immature Granulocyte Percent A 0.4 % (0.0-0.0); Lymphocytes Absolute Auto 2.56 K/mm3 (1.10-4.50); Lymphocytes Percent Auto 27.7 % (18.0-42.0); Mean Corpuscular HGB Conc 33.3 g/dL (32.0-36.0); Mean Corpuscular Hemoglobin 30.7 pg (27.0-31.0); Mean Corpuscular Volume 92.1 fL (78.0-102.0); Mean Platelet Volume 9.6 fl (9.2-11.8); Monocytes Absolute Auto 0.62 K/mm3 (0.10-0.90); Monocytes Percent Auto 6.7 % (2.0-11.0); Neutrophils Absolute Auto 5.9 K/mm3 (1.7-7.2); Platelet Count Result 317 K/mm3 (150-420); Red Blood Count 4.33 M/mm3 (4.20-5.40); Red Cell Distribution Width 12.1 % (11.6-14.4); White Blood Count 9.2 K/mm3 (4.8-10.8)
[2021-09-04 21:31] LABS: Add Urine Microscopic? NO; Appearance Urine Clear (Clear); Bilirubin Urine Negative (Negative); Blood Urine Negative (Negative); Color Urine Light Yellow (Yellow); Glucose Urine UA Negative (Negative); Ketones Urine Negative (Negative); Leukocyte Esterase Ur Negative (Negative); Nitrate Urine Negative (Negative); Protein Urine Negative (Negative); Specific Grav Ur <= 1.005 (1.010-1.020); Urobilinogen Urine 0.2 mg/dL (0.2-1.0); pH Urine 6.5 (5.0-8.0)
[2021-09-04 21:34] LABS: Pregnancy On Board Control Positive; Urine Pregnancy Test Negative
[2021-09-04 21:45] LABS: Alanine Aminotransferase 23 U/L (14-59); Albumin Level 3.5 g/dL (3.4-5.0); Alkaline Phosphatase 85 U/L (46-116); Anion Gap 11 mmol/L (8-16); Aspartate Amino Transferase 10 U/L (15-37); Bilirubin,Total 0.4 mg/dL (0.00-1.00); Blood Urea Nitrogen 10 mg/dL (7-18); Calcium 8.5 mg/dL (8.5-10.1); Carbon Dioxide 25 mmol/L (21-32); Chloride 104 mmol/L (98-108); Estimated CRCL calculation 70 ml/min; Estimated Glomerular Filt Rate > 60; Glucose 87 mg/dL (70-99); Osmolality Calculated 288 mOsm/kg (285-295); Potassium 3.4 mmol/L (3.5-5.1); Sodium 140 mmol/L (136-145); Total Protein 6.9 g/dL (6.4-8.2)
[2021-09-04 22:54] VITALS: BP 125/86; PULSE 86; RESP 18; TEMP 36.7; O2SAT 100
== END 2021-09-04 23:00 | disposition home or self-care (01) ==
PROVIDERS: Emergency Provider Emergency Medicine; PCP Family Medicine
DX: R23.2 Flushing (principal); R10.2 Pelvic and perineal pain
CPT/HCPCS: 36415; 74176; 80053; 81003; 81025; 82948; 85025; 99284

== ENCOUNTER 2021-09-12 07:53 | Outpatient (CLI) | payer OTHER, SELFPAY ==
[2021-09-15 09:38] LABS: LH 1.4 mIU/mL (***)
== END 2021-09-12 07:54 | disposition home or self-care (01) ==
PROVIDERS: PCP Family Medicine
DX: R23.2 Flushing (principal)
CPT/HCPCS: 36415; 83001; 83002; 84146

== ENCOUNTER 2021-09-16 00:07 | Emergency (ER) | payer OTHER, SELFPAY ==
[2021-09-16] VITALS (7 sets, daily range): BP systolic 108–145; BP diastolic 75–87; PULSE 77–99; RESP 12–18; TEMP 36.3–36.4; O2SAT 97–100
--- NOTE | ~2021-09-16 | XR_ITS ---
EXAMINATION: XR chest 1V portable EXAM DATE: 09/16/2021 00:32 INDICATION: Chest pain/pressure @ center anterior chest TECHNIQUE: Portable AP frontal chest x-ray was obtained. Comparison is made to prior examination from 06/28/2021. FINDINGS: The lungs are clear. There are no pleural effusions. The cardiomediastinal silhouette is within normal limits. There is no pneumothorax suspected. The bones and soft tissues are unremarkab le. There are cholecystectomy clips. IMPRESSION: No acute cardiopulmonary findings. Reviewed, dictated and finalized at location A.
--- NOTE | 2021-09-16 00:15 | ECG_ITS ---
Measurements Intervals [place] Rate: 86 P: 45 RI: 149 QRS: -14 QRSD: 90 T: 32 QT: 371 QTc: 446 Interpretive Statements SINUS RHYTHM POSSIBLE RIGHT VENTRICULAR CONDUCTION DELAY [RSR (QR) IN V1/V2] COMPARED TO ECG 06/28/2021 11:41:35 THE RATE IS SLOWER Electronically Signed On 09-16-2021 7:03:58 CDT by Rosalinda Agustin M.D.
[2021-09-16] MEDS: ASPIRIN 325 MG ENTERIC TABLET PO (00:28)
[2021-09-16] MEDS: NITROGLYCERIN SL 0.4 MG TABLET SUBLINGUAL ×3 (00:30→00:52)
[2021-09-16 01:04] LABS: Basophils Absolute Auto 0.05 K/mm3 (0.00-0.10); Basophils Percent Auto 0.6 % (0.0-1.0); Eosinophils Absolute Auto 0.08 K/mm3 (0.02-0.50); Hematocrit 40.3 % (35.0-49.0); Hemoglobin 13.5 g/dL (12.0-15.0); Immature Granulocyte Absolute 0.06 K/mm3 (0.00-0.00); Immature Granulocyte Percent A 0.8 % (0.0-0.0); Lymphocytes Absolute Auto 2.52 K/mm3 (1.10-4.50); Lymphocytes Percent Auto 31.5 % (18.0-42.0); Mean Corpuscular HGB Conc 33.5 g/dL (32.0-36.0); Mean Corpuscular Hemoglobin 30.8 pg (27.0-31.0); Mean Corpuscular Volume 91.8 fL (78.0-102.0); Mean Platelet Volume 9.9 fl (9.2-11.8); Monocytes Absolute Auto 0.56 K/mm3 (0.10-0.90); Neutrophils Absolute Auto 4.7 K/mm3 (1.7-7.2); Neutrophils Percent Auto 59.1 % (50.0-70.0); Platelet Count Result 326 K/mm3 (150-420); Red Blood Count 4.39 M/mm3 (4.20-5.40); Red Cell Distribution Width 12.3 % (11.6-14.4)
[2021-09-16] MEDS: MAG HYDROX/ALUMINUM HYD/SIMETH 30 ML, PHENobarb/HYOSCY/ATROPINE/SCOP 32.4 MG, LIDOCAINE... PO (01:10)
[2021-09-16] MEDS: ONDANSETRON INJ 4 MG/2 ML VIAL IV PUSH (01:11)
[2021-09-16] MEDS: SODIUM CHLORIDE 0.9% IV 500 ML 999 ML IV CONT (01:14)
[2021-09-16] MEDS: PANTOPRAZOLE SODIUM IV 40 MG VIAL IV PUSH (01:15)
[2021-09-16 01:17] LABS: Alanine Aminotransferase 25 U/L (14-59); Albumin Level 3.8 g/dL (3.4-5.0); Alkaline Phosphatase 76 U/L (46-116); Anion Gap 12 mmol/L (8-16); Aspartate Amino Transferase 15 U/L (15-37); Bilirubin,Total 0.4 mg/dL (0.00-1.00); Blood Urea Nitrogen 8 mg/dL (7-18); Calcium 8.6 mg/dL (8.5-10.1); Carbon Dioxide 24 mmol/L (21-32); Chloride 104 mmol/L (98-108); Estimated Glomerular Filt Rate > 60; Glucose 94 mg/dL (70-99); NT Pro B Type Natriuretic Pept 64 pg/mL (0-125); Osmolality Calculated 288 mOsm/kg (285-295); Potassium 3.2 mmol/L (3.5-5.1); Sodium 140 mmol/L (136-145); Total Protein 7.2 g/dL (6.4-8.2); Troponin I 7.2 ng/L (0.00-60.4)
--- NOTE | 2021-09-16 01:46 | ED.CHESTPAIN ---
HPI - Chest Pain General Chief Complaint: Chest Pain Stated Complaint: Chest Pressure Time Seen by Provider: 09/16/21 00:09 Source: patient and RN notes reviewed Mode of arrival: ambulatory Limitations: no limitations History of Present Illness MD complaint: chest pain, chest heaviness and other (mild esophageal heaviness x 2 mos.) Timing of current episode: constant Prior episodes: Yes Onset: awoke with symptoms Pain radiation: left arm Severity: mild Pain scale (0-10): 3 Quality: aching, heaviness and dull Relieving factors: nitroglycerin Exacerbating factors: nothing Associated symptoms: nausea Related Data Home Medications Medication Instructions Recorded Confirmed omeprazole 20 mg PO BID 04/05/21 09/16/21 sucralfate See Rx Instructions .ROUTE .COMPLEX 06/28/21 09/16/21 Allergies Allergy/AdvReac Type Severity Reaction Status Date / Time acetaminophen Allergy Unknown Verified 09/16/21 00:21 amoxicillin [From Augmentin] Allergy Hives Verified 09/16/21 00:21 clavulanic acid Allergy Hives Verified 09/16/21 00:21 [From Augmentin] codeine Allergy Anxiety Verified 09/16/21 00:21 fentanyl Allergy Anxiety Verified 09/16/21 00:21 ketorolac Allergy Hives Verified 09/16/21 00:21 morphine Allergy Anxiety Verified 09/16/21 00:21 Penicillins Allergy Hives Verified 09/16/21 00:21 hydrocodone AdvReac Vomiting Verified 09/16/21 00:21 tramadol AdvReac Vomiting Verified 09/16/21 00:21 PROPOXYPHENE NAPSYLATE Allergy Mild Unknown Uncoded 09/16/21 00:21 Review of Systems Review of Systems: All systems reviewed & are unremarkable except as noted in HPI and below PMFSH Past Medical History Medical History Chest pain Chronic GERD HTN (hypertension) Kidney stones Social History Social History Tobacco type: e-cigarettes/vaping Alcohol intake: never Substance use: never Gender identity (if verbalized by the patient): Female Exam Const: General: no acute distress and alert Orientation/consciousness: patient oriented x3 Limitations: no limitations HENMT: Head: normal to inspection Ears: external ears normal, TM's normal bilaterally and EAC's normal General nose exam: Normal external nose present and Normal nares present Mouth: Yes moist mucous membranes Eyes: Conjunctivae: conjunctivae normal Pupils: Equal, round and reactive pupils present EOM: EOMs intact bilaterally Neck: Neck: normal visual inspection and no lymphadenopathy Resp: Effort & Inspection: normal respiratory effort Auscultation: clear to auscultation bilaterally Cardio: Rate: regular rate Rhythm: regular rhythm GI: GI Palp: Yes Soft to palpation and No Tenderness to palpation present (GI) Auscultation: normal bowel sounds : General: Yes bladder normal to palpation and Yes no CVA tenderness Back/Spine/Pelvis: Back: no CVA tenderness Skin: General skin exam: normal color Rashes: no rashes Neuro: General: patient oriented x3, moves all extremities, no meningeal signs, no focal motor deficits and CN's II-XI intact bilaterally Extrem: General: normal to inspection and no pedal edema Psych: Appearance: grossly normal Mental Status: mental status grossly normal Affect: normal affect Attitude: cooperative Thought content: Yes Normal thought content present Course Course Emergency Course: Pt was pain-free and stable in the ED. Reevaluation(s) Reevaluation #1: VSS. Date: 09/16/21 Time: 01:05 Vital Signs Vital signs: Vital Signs Temperature 36.4 C 09/16/21 00:07 Pulse Rate 94 09/16/21 00:07 Respiratory Rate 18 09/16/21 00:07 Blood Pressure 145/84 H 09/16/21 00:07 Pulse Oximetry 100 09/16/21 00:07 Temperature 36.3 C L 09/16/21 02:04 Pulse Rate 77 09/16/21 02:04 Respiratory Rate 12 09/16/21 02:04 Blood Pressure 110/78 09/16/21 02:04 Pulse Oximetry 98 09/16/21 02:04 MDM
[2021-09-16] MEDS: POTASSIUM CHLORIDE 20 MEQ TABLET 40 MEQ PO (01:49)
== END 2021-09-16 02:15 | disposition home or self-care (01) ==
PROVIDERS: Emergency Provider Emergency Medicine; PCP Family Medicine
DX: K21.9 Gastro-esophageal reflux disease without esophagitis (principal); R07.9 Chest pain, unspecified
CPT/HCPCS: 36415; 71045; 80053; 83880; 84484; 85025; 93005; 96361; 96374; 96375; 99284; A9270; C9113; J2405; J7040

== ENCOUNTER 2021-09-16 13:54 | Emergency (ER) | payer OTHER, SELFPAY ==
--- NOTE | ~2021-09-16 | CT_ITS ---
EXAMINATION: CTA chest DATE: 09/16/2021 15:31 INDICATION: Epigastric burning radiates to chest. Smoker TECHNIQUE: Computed tomography angiography (CTA) of the chest was performed with 100 mL Omnipaque-350 intravenous contrast timed to evaluate the pulmonary arteries. Coronal maximum intensity projection 3D-reconstructions were created by the technologist. The dose-length product (DLP) was 261.51 mGy-cm. Automated exposure control and iterative reconstruction technique were employed. COMPARISON: CT chest 01/24/2021. FINDINGS: Study quality: Adequate Pulmonary arteries: No pulmonary emboli detected. Thoracic aorta: Normal. Lung parenchyma and airways: Clear. Thoracic inlet, axillae and chest wall: Unremarkable. Mediastinum: Normal. Heart and pericardium: Normal. Coronary artery calcifications: Absent. Pleura: Unremarkable. Upper abdomen: Distal esophageal and antral wall edema. Cholecystectomy. Bones: No acute osseous finding. IMPRESSION: No CT evidence of pulmonary embolus. Possible esophagitis and antral gastritis. Reviewed, dictated and finalized at location K.
--- NOTE | 2021-09-16 14:06 | ED.ABDPAIN ---
HPI - Abdominal Pain General Chief Complaint: Unspecified Stated Complaint: burning sensation in chest and back pain Source: patient and RN notes reviewed Mode of arrival: ambulatory Limitations: no limitations History of Present Illness HPI narrative: Patient was just here 14 hours ago and had a complete cardiac workup. She states she just continues to have burning in her chest. She received 3 nitroglycerin and aspirin which were no help the she then had a GI cocktail which helped some. She continues to have burning in her epigastric area goes back to her chest. She says that she does have a history of anxiety and that she is concerned that she is having blood clot she is going to from a pulmonary embolism like mom. She denies having fever chills, nausea vomiting, diaphoresis. She denies any shortness of breath. MD elicited complaint: abdominal pain Pertinent past history: other (GERD) Onset (ago): month(s) (2) Pain Consistency: intermittent Location: epigastric Severity: moderate Quality: dull and burning Radiation: back Exacerbating factors: eating Relieving factors: nothing Associated symptoms: denies other symptoms Treatments prior to arrival: antacids Related Data Home Medications Medication Instructions Recorded Confirmed omeprazole 20 mg PO BID 04/05/21 09/16/21 sucralfate See Rx Instructions .ROUTE .COMPLEX 06/28/21 09/16/21 Allergies Allergy/AdvReac Type Severity Reaction Status Date / Time amoxicillin [From Augmentin] Allergy Hives Verified 09/16/21 00:21 clavulanic acid Allergy Hives Verified 09/16/21 00:21 [From Augmentin] codeine Allergy Anxiety Verified 09/16/21 00:21 fentanyl Allergy Anxiety Verified 09/16/21 00:21 ketorolac Allergy Hives Verified 09/16/21 00:21 morphine Allergy Anxiety Verified 09/16/21 00:21 Penicillins Allergy Hives Verified 09/16/21 00:21 hydrocodone AdvReac Vomiting Verified 09/16/21 00:21 ibuprofen [From Motrin] AdvReac Other Verified 09/16/21 14:07 tramadol AdvReac Vomiting Verified 09/16/21 00:21 PROPOXYPHENE NAPSYLATE Allergy Mild Unknown Uncoded 09/16/21 00:21 Review of Systems Review of Systems: All systems reviewed & are unremarkable except as noted in HPI and below Cardiovascular: Cardiovascular: Denies chest pain and Denies radiating jaw, neck or arm pain PMFSH Past Medical History Medical History Chest pain Chronic GERD HTN (hypertension) Kidney stones Social History Social History Tobacco type: e-cigarettes/vaping Alcohol intake: never Substance use: never Gender identity (if verbalized by the patient): Female Exam Const: General: healthy appearing, no acute distress and alert Nutritional Appearance: well nourished Orientation/consciousness: patient oriented x3 Other: Female nurse in the room during examination. HENMT: Head: normal to inspection Ears: external ears normal Eyes: Conjunctivae: conjunctivae normal Pupils: Equal, round and reactive pupils present EOM: EOMs intact bilaterally Neck: Neck: normal visual inspection Resp: Effort & Inspection: normal respiratory effort Auscultation: clear to auscultation bilaterally Cardio: Rate: regular rate Rhythm: regular rhythm GI: GI Palp: Yes Soft to palpation, Yes Tenderness to palpation present (GI) (epigastric), Yes Guarding due to palpation present (GI) and No Rebound tenderness present Auscultation: normal bowel sounds Back/Spine/Pelvis: Cervical Spine: cervical ROM normal Thoracic/Lumbar Spine: thoraco-lumbar ROM normal Skin: General skin exam: normal color Rashes: no rashes Neuro: General: patient oriented x3, moves all extremities, no focal motor deficits and CN's II-XI intact bilaterally Speech: normal speech Gait exam (Neuro): Normal gait present Extrem: General: normal to inspection and no clubbing, cyanosis or edema Psych: Appearance: gross
--- NOTE | 2021-09-16 14:14 | PC.NURSE ---
attend physical with MD, during exam patient stated, my anxiety is horrible & the pain. I think I just need something for those
[2021-09-16 14:15] VITALS: BP 117/80; PULSE 83; RESP 18; TEMP 37.1; O2SAT 99
[2021-09-16 14:47] LABS: D Dimer 0.37 mg/L (0.19-0.50)
[2021-09-16 14:52] LABS: Anion Gap 10 mmol/L (8-16); Blood Urea Nitrogen 7 mg/dL (7-18); Calcium 8.3 mg/dL (8.5-10.1); Carbon Dioxide 23 mmol/L (21-32); Chloride 107 mmol/L (98-108); Estimated CRCL calculation 76 ml/min; Estimated Glomerular Filt Rate > 60; Glucose 79 mg/dL (70-99); Osmolality Calculated 287 mOsm/kg (285-295); Potassium 3.5 mmol/L (3.5-5.1); Sodium 140 mmol/L (136-145); Troponin I 4.9 ng/L (0.00-60.4)
[2021-09-16 15:13] VITALS: BP 112/70; PULSE 70; RESP 20; O2SAT 99
[2021-09-16 16:14] VITALS: BP 120/71; PULSE 72; RESP 20; TEMP 36.4; O2SAT 98
== END 2021-09-16 16:25 | disposition home or self-care (01) ==
PROVIDERS: Emergency Provider Emergency Medicine; PCP Family Medicine
DX: K20.90 Esophagitis, unspecified without bleeding (principal)
CPT/HCPCS: 36415; 71275; 80048; 84484; 85380; 99284; Q9967

== ENCOUNTER 2021-10-16 18:58 | Emergency (ER) | payer OTHER, SELFPAY ==
[2021-10-16] VITALS (8 sets, daily range): BP systolic 102–123; BP diastolic 67–87; PULSE 89–100; RESP 16; TEMP 36.6; O2SAT 94–100
--- NOTE | 2021-10-16 19:20 | ED.ABDPAIN ---
HPI - Abdominal Pain General Chief Complaint: Abdominal Pain Stated Complaint: muscle spasms-stomach issues Time Seen by Provider: 10/16/21 19:20 Source: patient History of Present Illness HPI narrative: 41 female with a history of recurrent chest pain with a negative cardiac in January of 2021, negative Holter, status post cholecystectomy, kidney stones status post lithotripsy, recurrent epigastric pain on Nexium, Pepcid, sucralfate and Gas-X, status post barium swallow with hiatal hernia presents to the with -- epigastric discomfort -- 1 episode of fecal incontinence no fever or chills. The patient is scheduled to get an upper GI endoscopy next week. The patient was prescribed amitriptyline in addition to her gastric medications which she has not taken. MD elicited complaint: abdominal pain Pertinent past history: gastritis Onset (ago): day(s) Pain Consistency: constant Location: epigastric Severity: moderate Quality: aching Radiation: none Exacerbating factors: nothing Relieving factors: nothing Associated symptoms: denies other symptoms Related Data Home Medications Medication Instructions Recorded Confirmed omeprazole 20 mg PO BID 04/05/21 10/16/21 sucralfate See Rx Instructions .ROUTE .COMPLEX 06/28/21 10/16/21 simethicone [Gas-X] 80 mg PO DAILY 10/16/21 10/16/21 Allergies Allergy/AdvReac Type Severity Reaction Status Date / Time amoxicillin [From Augmentin] Allergy Hives Verified 10/16/21 19:32 clavulanic acid Allergy Hives Verified 10/16/21 19:32 [From Augmentin] codeine Allergy Anxiety Verified 10/16/21 19:32 fentanyl Allergy Anxiety Verified 10/16/21 19:32 ketorolac Allergy Hives Verified 10/16/21 19:32 morphine Allergy Anxiety Verified 10/16/21 19:32 Penicillins Allergy Hives Verified 10/16/21 19:32 hydrocodone AdvReac Vomiting Verified 10/16/21 19:32 ibuprofen [From Motrin] AdvReac Other Verified 10/16/21 19:32 tramadol AdvReac Vomiting Verified 10/16/21 19:32 PROPOXYPHENE NAPSYLATE Allergy Mild Unknown Uncoded 10/16/21 19:32 Review of Systems Review of Systems: All systems reviewed & are unremarkable except as noted in HPI and below Constitutional: Constitutional: Reports as per HPI and Reports no additional constitutional complaints Eyes: Eyes: Reports as per HPI and Reports no additional eye complaints ENT: Reports system reviewed and no additional complaints, except as documented and Reports as per HPI Cardiovascular: Cardiovascular: Reports as per HPI, Reports no additional cardiovascular complaints and Reports chest pain Respiratory: Respiratory: Reports as per HPI and Reports no additional respiratory complaints Gastrointestinal: Gastrointestinal: Reports as per HPI, Reports abdominal pain and Reports nausea Comments: Epigastric pain Genitourinary: Genitourinary: Reports no additional female genitourinary complaints Musculoskeletal: Musculoskeletal: Reports no additional musculoskeletal complaints and Reports as per HPI Integumentary/Breasts: Skin/Breast: Reports system reviewed and no additional complaints, except as docu and Reports as per HPI Neurologic: Reports system reviewed and no additional complaints, except as documented and Reports as per HPI Psychiatric: Psychiatric: Reports no additional psychiatric complaints and Reports as per HPI Endocrine: Endocrine: Reports no additional endocrine complaints and Reports as per HPI Hematologic/Lymphatic: Hematologic/Lymphatic: Reports no additional hematologic/lymphatic complaints and Reports as per HPI Allergic/Immunologic: Allergic/Immunologic: Reports no additional allergic/immunologic complaints and Reports as per HPI [facility] Past Medical History Medical History Chest pain Chronic GERD HTN (hypertension) Kidney stones Social History Social History Tobacco type: e-cigarettes/vaping Alcohol intak
[2021-10-16 19:49] LABS: Basophils Absolute Auto 0.04 K/mm3 (0.00-0.10); Basophils Percent Auto 0.5 % (0.0-1.0); Eosinophils Absolute Auto 0.05 K/mm3 (0.02-0.50); Eosinophils Percent Auto 0.7 % (1.0-6.0); Hematocrit 39.5 % (35.0-49.0); Hemoglobin 13.2 g/dL (12.0-15.0); Immature Granulocyte Absolute 0.03 K/mm3 (0.00-0.00); Immature Granulocyte Percent A 0.4 % (0.0-0.0); Lymphocytes Absolute Auto 1.78 K/mm3 (1.10-4.50); Lymphocytes Percent Auto 23.8 % (18.0-42.0); Mean Corpuscular HGB Conc 33.4 g/dL (32.0-36.0); Mean Corpuscular Hemoglobin 30.4 pg (27.0-31.0); Mean Platelet Volume 9.9 fl (9.2-11.8); Monocytes Absolute Auto 0.63 K/mm3 (0.10-0.90); Monocytes Percent Auto 8.4 % (2.0-11.0); Neutrophils Percent Auto 66.2 % (50.0-70.0); Platelet Count Result 270 K/mm3 (150-420); Red Blood Count 4.34 M/mm3 (4.20-5.40); Red Cell Distribution Width 12.1 % (11.6-14.4); White Blood Count 7.5 K/mm3 (4.8-10.8)
[2021-10-16 19:50] LABS: Add Urine Microscopic? NO; Appearance Urine Clear (Clear); Bilirubin Urine Negative (Negative); Blood Urine Negative (Negative); Color Urine Light Yellow (Yellow); Glucose Urine UA Negative (Negative); Ketones Urine Negative (Negative); Leukocyte Esterase Ur Negative (Negative); Nitrate Urine Negative (Negative); Protein Urine Negative (Negative); Specific Grav Ur <= 1.005 (1.010-1.020); Urobilinogen Urine 0.2 mg/dL (0.2-1.0); pH Urine 6.5 (5.0-8.0)
[2021-10-16 19:53] LABS: Pregnancy On Board Control Positive; Urine Pregnancy Test Negative
[2021-10-16 20:04] LABS: Alanine Aminotransferase 16 U/L (14-59); Albumin Level 3.7 g/dL (3.4-5.0); Alkaline Phosphatase 83 U/L (46-116); Anion Gap 6 mmol/L (8-16); Aspartate Amino Transferase < 10 U/L (15-37); Bilirubin,Total 0.6 mg/dL (0.00-1.00); Blood Urea Nitrogen 7 mg/dL (7-18); Calcium 8.7 mg/dL (8.5-10.1); Carbon Dioxide 27 mmol/L (21-32); Chloride 105 mmol/L (98-108); Estimated Glomerular Filt Rate > 60; Glucose 77 mg/dL (70-99); Lipase 64 U/L (73-393); Osmolality Calculated 283 mOsm/kg (285-295); Potassium 3.8 mmol/L (3.5-5.1); Sodium 138 mmol/L (136-145); Total Protein 7.1 g/dL (6.4-8.2)
[2021-10-16 20:09] LABS: Lactic Acid Reflex 0.7 mmol/L (0.4-2.0)
== END 2021-10-16 21:07 | disposition home or self-care (01) ==
PROVIDERS: Emergency Provider Internal Medicine Critical Care Medicine; PCP Family Medicine
DX: R10.13 Epigastric pain (principal); K21.9 Gastro-esophageal reflux disease without esophagitis
CPT/HCPCS: 36415; 80053; 81003; 81025; 83605; 83690; 85025; 99283

== ENCOUNTER 2021-10-26 09:21 | Emergency (ER) | payer OTHER, SELFPAY ==
--- NOTE | ~2021-10-26 | XR_ITS ---
EXAMINATION: XR chest 2V DATE: 10/26/2021 09:53 INDICATION: Anterior chest pain TECHNIQUE: PA and lateral views of the chest are obtained. COMPARISON: 09/16/2021 FINDINGS: The lungs are free of acute opacities. There is no pleural effusion or pneumothorax. The ca rdiomediastinal silhouette is normal. There is mild thoracic spondylosis. Cholecystectomy clips are n oted. IMPRESSION: 1. No acute cardiopulmonary abnormality. Reviewed, dictated and finalized at location A.
[2021-10-26 09:25] VITALS: BP 135/92; PULSE 81; RESP 20; TEMP 36.9; O2SAT 100
--- NOTE | 2021-10-26 09:30 | ED.CHESTPAIN ---
HPI - Chest Pain General Chief Complaint: Chest Pain Stated Complaint: RECENT ENDOSCOPY CHEST PRESSURE Time Seen by Provider: 10/26/21 09:28 Source: patient and RN notes reviewed Mode of arrival: ambulatory Limitations: no limitations History of Present Illness HPI narrative: patient states that she had a EGD done 3 days ago at [facility] in [place]. She had some biopsies completed and she was told that she had chronic esophagitis. She also has some anxiety when she feels some chest pain she is concerned that it is her heart. She is having some soreness in her chest, she says that hurts to take a deep breath. She denies any dyspnea diaphoresis radiation of pain. She says she has been a little nauseous. She also gets nausea sometimes with her reflux. MD complaint: chest pain Pertinent past history: other (chronic GERD) Onset (ago): hour(s) (2) Timing of current episode: constant Prior episodes: Yes Onset: during rest Pain location: epigastric Pain radiation: none Severity: moderate Quality: dull, burning and fullness Relieving factors: nothing Exacerbating factors: nothing Context: other (had EGD 3 days ago) Associated symptoms: nausea and other (Hurts to take a deep breath) Treatment prior to arrival: none Risk Factors Thoracic aortic dissection risk factors: none Related Data Home Medications Medication Instructions Recorded Confirmed sucralfate See Rx Instructions .ROUTE .COMPLEX 06/28/21 10/16/21 simethicone [Gas-X] 80 mg PO DAILY 10/16/21 10/16/21 esomeprazole sodium 20 mg BYMOUTH DAILY 10/26/21 10/26/21 famotidine 20 mg BYMOUTH DAILY 10/26/21 10/26/21 Allergies Allergy/AdvReac Type Severity Reaction Status Date / Time amoxicillin [From Augmentin] Allergy Hives Verified 10/16/21 19:32 clavulanic acid Allergy Hives Verified 10/16/21 19:32 [From Augmentin] codeine Allergy Anxiety Verified 10/16/21 19:32 fentanyl Allergy Anxiety Verified 10/16/21 19:32 ketorolac Allergy Hives Verified 10/16/21 19:32 morphine Allergy Anxiety Verified 10/16/21 19:32 Penicillins Allergy Hives Verified 10/16/21 19:32 hydrocodone AdvReac Vomiting Verified 10/16/21 19:32 ibuprofen [From Motrin] AdvReac Other Verified 10/16/21 19:32 tramadol AdvReac Vomiting Verified 10/16/21 19:32 PROPOXYPHENE NAPSYLATE Allergy Mild Unknown Uncoded 10/16/21 19:32 Review of Systems Review of Systems: All systems reviewed & are unremarkable except as noted in HPI and below Constitutional: Constitutional: Denies chills and Denies fever(s) Cardiovascular: Cardiovascular: Denies rapid heart rate Respiratory: Respiratory: Denies cough, Denies dyspnea and Denies wheezing PMFSH Past Medical History Medical History Chest pain Chronic GERD HTN (hypertension) Kidney stones Social History Social History Tobacco type: e-cigarettes/vaping Alcohol intake: never Substance use: never Gender identity (if verbalized by the patient): Female Exam Const: General: healthy appearing, no acute distress and alert Nutritional Appearance: well nourished Orientation/consciousness: patient oriented x3 HENMT: Head: normal to inspection Ears: external ears normal Eyes: Conjunctivae: conjunctivae normal Pupils: Equal, round and reactive pupils present EOM: EOMs intact bilaterally Neck: Neck: normal visual inspection Chest: Chest palpation & inspection: tenderness sternum Resp: Effort & Inspection: normal respiratory effort Auscultation: clear to auscultation bilaterally Cardio: Rate: regular rate Rhythm: regular rhythm GI: GI Palp: Yes Soft to palpation, No Tenderness to palpation present (GI) and No Guarding due to palpation present (GI) Auscultation: normal bowel sounds Back/Spine/Pelvis: Cervical Spine: cervical ROM normal Thoracic/Lumbar Spine: thoraco-lumbar ROM normal Skin: General skin exam: normal color Rashes:
--- NOTE | 2021-10-26 09:31 | ECG_ITS ---
Measurements Intervals [place] Rate: 98 P: 59 [place]: 149 QRS: -34 QRSD: 93 T: 59 QT: 362 QTc: 462 Interpretive Statements SINUS RHYTHM LEFT AXIS DEVIATION BORDERLINE ECG Electronically Signed On 10-26-2021 11:55:30 CDT by Lza Edwards D.O.
[2021-10-26 09:52] LABS: Basophils Absolute Auto 0.04 K/mm3 (0.00-0.10); Basophils Percent Auto 0.7 % (0.0-1.0); Eosinophils Absolute Auto 0.07 K/mm3 (0.02-0.50); Eosinophils Percent Auto 1.2 % (1.0-6.0); Hematocrit 40.6 % (35.0-49.0); Hemoglobin 13.9 g/dL (12.0-15.0); Immature Granulocyte Absolute 0.02 K/mm3 (0.00-0.00); Immature Granulocyte Percent A 0.3 % (0.0-0.0); Lymphocytes Absolute Auto 1.76 K/mm3 (1.10-4.50); Lymphocytes Percent Auto 29.3 % (18.0-42.0); Mean Corpuscular HGB Conc 34.2 g/dL (32.0-36.0); Mean Corpuscular Hemoglobin 30.5 pg (27.0-31.0); Mean Platelet Volume 10.1 fl (9.2-11.8); Monocytes Absolute Auto 0.41 K/mm3 (0.10-0.90); Monocytes Percent Auto 6.8 % (2.0-11.0); Neutrophils Absolute Auto 3.7 K/mm3 (1.7-7.2); Neutrophils Percent Auto 61.7 % (50.0-70.0); Platelet Count Result 267 K/mm3 (150-420); Red Blood Count 4.56 M/mm3 (4.20-5.40); Red Cell Distribution Width 12.1 % (11.6-14.4)
[2021-10-26] MEDS: MAG HYDROX/ALUMINUM HYD/SIMETH 30 ML, PHENobarb/HYOSCY/ATROPINE/SCOP 32.4 MG, LIDOCAINE... PO (09:58)
[2021-10-26 10:05] LABS: INR 1.1; Prothrombin Time 11.8 Seconds (9.50-12.10)
[2021-10-26 11:02] LABS: Alanine Aminotransferase 18 U/L (6-35); Albumin Level 4.3 g/dL (3.5-5.1); Alkaline Phosphatase 79 U/L (38-126); Anion Gap 9 mmol/L (8-16); Aspartate Amino Transferase 20 U/L (14-36); Bilirubin,Total 0.5 mg/dL (0.2-1.3); Blood Urea Nitrogen 9 mg/dL (7-17); Calcium 8.9 mg/dL (8.4-10.2); Carbon Dioxide 22 mmol/L (22-30); Chloride 106 mmol/L (98-107); Estimated CRCL calculation 60 ml/min; Estimated Glomerular Filt Rate > 60; Glucose 98 mg/dL (65-110); Osmolality Calculated 282 mOsm/kg (285-295); Potassium 3.8 mmol/L (3.4-5.0); Sodium 137 mmol/L (137-145)
[2021-10-26 11:06] LABS: CRP < 0.5 mg/dL (<1.0)
[2021-10-26 11:18] LABS: Troponin I < 0.012 ng/mL (0.000-0.034)
[2021-10-26 11:26] VITALS: BP 112/82; PULSE 88; RESP 20; TEMP 36.6; O2SAT 97
== END 2021-10-26 11:29 | disposition home or self-care (01) ==
PROVIDERS: Emergency Provider Emergency Medicine; PCP Family Medicine
DX: K21.9 Gastro-esophageal reflux disease without esophagitis (principal); R07.9 Chest pain, unspecified; I10 Essential (primary) hypertension; F17.290 Nicotine dependence, other tobacco product, uncomplicated; Z87.442 Personal history of urinary calculi
CPT/HCPCS: 36415; 71046; 80053; 84484; 85025; 85610; 86140; 93005; 99284; A9270

== ENCOUNTER 2021-12-26 21:20 | Emergency (ER) | payer OTHER, SELFPAY ==
--- NOTE | ~2021-12-26 | XR_ITS ---
EXAMINATION: XR chest 1V portable Exam Date/Time: 12/26/2021 21:35 CDT HISTORY: MIDSTERNAL CP Comparison: 10/26/2021. RESULT: Lines, tubes, and devices: Cholecystectomy clips. Lungs and pleura: Clear. Cardiomediastinal silhouette: Stable cardiomediastinal silhouette. Other: No acute osseous or upper abdominal finding. IMPRESSION: No acute cardiopulmonary process. Reviewed, dictated and finalized at location K.
--- NOTE | 2021-12-26 21:24 | ED.CHESTPAIN ---
HPI - Chest Pain General Chief Complaint: Unspecified Stated Complaint: heaviness in throat and chest, pain in arms Time Seen by Provider: 12/26/21 21:25 History of Present Illness HPI narrative: 41-year-old female with a history chest pain, hypertension, kidney stones, chronic GERD presents to the ER with -- chest heaviness radiating to both shoulders/arms for the past 2 days. Her symptoms started after she ate processed meat 2 days ago. She complains of substernal burning discomfort. Patient had multiple episodes of chest heaviness which were thought to be secondary to chronic GERD. She has had a negative stress test and a negative cardiac catheterization in January of last year. She had an upper GI endoscopy in October which revealed reflux esophagitis and hiatal hernia. The patient is on omeprazole and Protonix. MD complaint: chest heaviness Onset (ago): day(s) ( Started 2 days ago) Timing of current episode: constant Onset: during rest Pain location: substernal, left chest and right chest Pain radiation: right arm and left arm Pain scale (0-10): 5 Quality: heaviness Relieving factors: nothing Exacerbating factors: nothing and eating Treatment prior to arrival: other ( patient took Maalox, omeprazole and Protonix.) Risk Factors Coronary artery disease risk factors: none Thoracic aortic dissection risk factors: none Related Data On Oral Contraceptives: No Home Medications Medication Instructions Recorded Confirmed sucralfate 1 gram tablet 1 g PO QID 06/28/21 12/26/21 FDgard 1 cap DAILY 12/26/21 12/26/21 lorazepam 0.5 mg tablet 0.5 mg BID 12/26/21 12/26/21 omeprazole 40 mg capsule,delayed 40 mg BID 12/26/21 12/26/21 release pantoprazole 40 mg tablet,delayed 40 mg PO DAILY 12/26/21 12/26/21 release Allergies Allergy/AdvReac Type Severity Reaction Status Date / Time amoxicillin [From Augmentin] Allergy Hives Verified 12/26/21 21:34 clavulanic acid Allergy Hives Verified 12/26/21 21:34 [From Augmentin] codeine Allergy Anxiety Verified 12/26/21 21:34 fentanyl Allergy Anxiety Verified 12/26/21 21:34 ketorolac Allergy Hives Verified 12/26/21 21:34 morphine Allergy Anxiety Verified 07/20/22 21:34 Penicillins Allergy Hives Verified 12/26/21 21:34 hydrocodone AdvReac Vomiting Verified 12/26/21 21:34 ibuprofen [From Motrin] AdvReac Other Verified 12/26/21 21:34 tramadol AdvReac Vomiting Verified 12/26/21 21:34 PROPOXYPHENE NAPSYLATE Allergy Mild Unknown Uncoded 10/16/21 19:32 Review of Systems Review of Systems: All systems reviewed & are unremarkable except as noted in HPI and below Constitutional: Constitutional: Reports as per HPI and Reports no additional constitutional complaints Eyes: Eyes: Reports as per HPI and Reports no additional eye complaints ENT: Reports system reviewed and no additional complaints, except as documented and Reports as per HPI Cardiovascular: Cardiovascular: Reports as per HPI, Reports no additional cardiovascular complaints, Reports chest pain and Reports radiating jaw, neck or arm pain Respiratory: Respiratory: Reports as per HPI and Reports no additional respiratory complaints Gastrointestinal: Gastrointestinal: Reports as per HPI, Reports no additional gastrointestinal complaints, Reports heartburn and Reports nausea Genitourinary: Genitourinary: Reports no additional female genitourinary complaints and Reports as per HPI Musculoskeletal: Musculoskeletal: Reports no additional musculoskeletal complaints and Reports as per HPI Integumentary/Breasts: Skin/Breast: Reports system reviewed and no additional complaints, except as docu and Reports as per HPI Neurologic: Reports system reviewed and no additional complaints, except as documented and Reports as per HPI Psychiatric: Psychiatric: Reports no additional psychiatric complaints and Reports as per HPI Endocrine: Endocrine: Reports no additional endocrine complaints and Reports as per HPI Hematologic/Lymphatic: Hem
--- NOTE | 2021-12-26 21:29 | ECG_ITS ---
Measurements Intervals [place] Rate: 72 P: 40 [place]: 144 QRS: -17 QRSD: 89 T: 46 QT: 364 QTc: 400 Interpretive Statements SINUS RHYTHM BASELINE ARTIFACT- I, II, III, AVR, AVL, AVF NORMAL ECG Electronically Signed On 12-26-2021 22:57:04 CDT by Laz Edwards D.O.
[2021-12-26 21:38] VITALS: BP 126/78; PULSE 98; RESP 16; TEMP 37.3; O2SAT 99
[2021-12-26 21:49] LABS: Basophils Absolute Auto 0.03 K/mm3 (0.00-0.10); Basophils Percent Auto 0.5 % (0.0-1.0); Eosinophils Absolute Auto 0.03 K/mm3 (0.02-0.50); Eosinophils Percent Auto 0.5 % (1.0-6.0); Hematocrit 39.9 % (35.0-49.0); Hemoglobin 13.4 g/dL (12.0-15.0); Immature Granulocyte Absolute 0.01 K/mm3 (0.00-0.00); Immature Granulocyte Percent A 0.2 % (0.0-0.0); Lymphocytes Absolute Auto 1.67 K/mm3 (1.10-4.50); Lymphocytes Percent Auto 29.5 % (18.0-42.0); Mean Corpuscular HGB Conc 33.6 g/dL (32.0-36.0); Mean Corpuscular Hemoglobin 29.9 pg (27.0-31.0); Mean Corpuscular Volume 89.1 fL (78.0-102.0); Mean Platelet Volume 10.4 fl (9.2-11.8); Monocytes Absolute Auto 0.38 K/mm3 (0.10-0.90); Monocytes Percent Auto 6.7 % (2.0-11.0); Neutrophils Absolute Auto 3.6 K/mm3 (1.7-7.2); Neutrophils Percent Auto 62.6 % (50.0-70.0); Platelet Count Result 246 K/mm3 (150-420); Red Blood Count 4.48 M/mm3 (4.20-5.40); Red Cell Distribution Width 12.1 % (11.6-14.4); White Blood Count 5.7 K/mm3 (4.8-10.8)
[2021-12-26 22:10] LABS: Alanine Aminotransferase 17 U/L (14-59); Albumin Level 3.8 g/dL (3.4-5.0); Alkaline Phosphatase 84 U/L (46-116); Anion Gap 9 mmol/L (8-16); Aspartate Amino Transferase 10 U/L (15-37); Bilirubin,Total 0.9 mg/dL (0.00-1.00); Blood Urea Nitrogen 6 mg/dL (7-18); Calcium 9.1 mg/dL (8.5-10.1); Carbon Dioxide 23 mmol/L (21-32); Chloride 106 mmol/L (98-108); Estimated CRCL calculation 51 ml/min; Estimated Glomerular Filt Rate > 60; Glucose 90 mg/dL (70-99); Osmolality Calculated 283 mOsm/kg (285-295); Potassium 3.7 mmol/L (3.5-5.1); Sodium 138 mmol/L (136-145)
[2021-12-26 22:42] VITALS: BP 120/76; PULSE 80; RESP 16; O2SAT 100
== END 2021-12-26 22:45 | disposition home or self-care (01) ==
PROVIDERS: Emergency Provider Internal Medicine Critical Care Medicine; PCP Family Medicine
DX: R41.9 Unspecified symptoms and signs involving cognitive functions and awareness (principal); R07.89 Other chest pain; K21.9 Gastro-esophageal reflux disease without esophagitis
CPT/HCPCS: 36415; 71045; 80053; 84484; 85025; 93005; 99284

== ENCOUNTER 2022-02-09 17:15 | Emergency (ER) | payer OTHER, SELFPAY ==
[2022-02-09 17:36] VITALS: BP 124/81; PULSE 85; RESP 17; TEMP 36.4; O2SAT 100
--- NOTE | 2022-02-09 17:41 | ED.FEMALEGU ---
HPI - Female Genitourinary General Chief complaint: Arrhythmia/Palpitations Stated complaint: chest palpitations/headaches/period 17 Time Seen by Provider: 02/09/22 17:41 Source: patient Mode of arrival: ambulatory History of Present Illness HPI Narrative: 41-year-old female with a history GERD, anxiety, hypertension presents to the ER with -- increased vaginal bleeding which started on 01/23/2022 and stopped after 3 days. The patient had implant on which she removed secondary to breast engorgement, and breakthrough bleeding. Currently the patient is not bleeding. The patient has followed up with her electric engine mechanic who advised Mirena. patient is A1. Her last was 5 years ago. -- Palpitation. no chest pain. -- Weakness MD elicited complaint: vaginal bleeding Associated symptoms: weakness Treatment prior to arrival: none Sexual activity: Yes Patient : Yes Related Data Home Medications Medication Instructions Recorded Confirmed sucralfate 1 gram tablet 1 g PO QID 06/28/21 02/09/22 lorazepam 0.5 mg tablet 0.5 mg BID 12/26/21 02/09/22 omeprazole 40 mg capsule,delayed 40 mg BID 12/26/21 02/09/22 release pantoprazole 40 mg tablet,delayed 40 mg PO DAILY 12/26/21 02/09/22 release Allergies Allergy/AdvReac Type Severity Reaction Status Date / Time amoxicillin [From Augmentin] Allergy Hives Verified 02/09/22 18:50 clavulanic acid Allergy Hives Verified 02/09/22 18:50 [From Augmentin] codeine Allergy Anxiety Verified 02/09/22 18:50 fentanyl Allergy Anxiety Verified 02/09/22 18:50 ketorolac Allergy Hives Verified 02/09/22 18:50 morphine Allergy Anxiety Verified 02/09/22 18:50 Penicillins Allergy Hives Verified 02/09/22 18:50 hydrocodone AdvReac Vomiting Verified 02/09/22 18:50 ibuprofen [From Motrin] AdvReac Other Verified 02/09/22 18:50 tramadol AdvReac Vomiting Verified 02/09/22 18:50 PROPOXYPHENE NAPSYLATE Allergy Mild Unknown Uncoded 02/09/22 18:50 Review of Systems Review of Systems: All systems reviewed & are unremarkable except as noted in HPI and below Constitutional: Constitutional: Reports as per HPI and Reports no additional constitutional complaints Eyes: Eyes: Reports as per HPI and Reports no additional eye complaints ENT: Reports system reviewed and no additional complaints, except as documented and Reports as per HPI Cardiovascular: Cardiovascular: Reports as per HPI and Reports no additional cardiovascular complaints Comments: Palpitation Respiratory: Respiratory: Reports as per HPI and Reports no additional respiratory complaints Gastrointestinal: Gastrointestinal: Reports as per HPI and Reports no additional gastrointestinal complaints Genitourinary: Genitourinary: Reports no additional female genitourinary complaints and Reports abnormal vaginal bleeding Musculoskeletal: Musculoskeletal: Reports no additional musculoskeletal complaints and Reports as per HPI Integumentary/Breasts: Skin/Breast: Reports system reviewed and no additional complaints, except as docu and Reports as per HPI Neurologic: Reports system reviewed and no additional complaints, except as documented and Reports as per HPI Psychiatric: Psychiatric: Reports no additional psychiatric complaints and Reports as per HPI Endocrine: Endocrine: Reports no additional endocrine complaints and Reports as per HPI Hematologic/Lymphatic: Hematologic/Lymphatic: Reports no additional hematologic/lymphatic complaints and Reports as per HPI Allergic/Immunologic: Allergic/Immunologic: Reports no additional allergic/immunologic complaints and Reports as per HPI [facility] Past Medical History Medical History Chest pain Chronic GERD HTN (hypertension) Kidney stones Social History Social History Tobacco type: e-cigarettes/vaping Alcohol intake: never Substance use: never [place]
--- NOTE | 2022-02-09 17:45 | ECG_ITS ---
Measurements Intervals [place] Rate: 89 P: 48 SD: 151 QRS: -23 QRSD: 83 T: 46 QT: 351 QTc: 428 Interpretive Statements SINUS RHYTHM POSSIBLE LEFT ATRIAL ENLARGEMENT RSR' IN V1 OR V2, PROBABLY NORMAL VARIANT LOW QRS VOLTAGE IN PRECORDIAL LEADS BASELINE ARTIFACT- I, II COMPARED TO ECG 12/26/2021 21:44:07 NO SIGNIFICANT CHANGES Electronically Signed On 02-09-2022 18:49:24 CDT by Laz Edwards D.O.
[2022-02-09 18:05] LABS: Basophils Absolute Auto 0.03 K/mm3 (0.00-0.10); Basophils Percent Auto 0.6 % (0.0-1.0); Eosinophils Absolute Auto 0.06 K/mm3 (0.02-0.50); Eosinophils Percent Auto 1.1 % (1.0-6.0); Hematocrit 39.3 % (35.0-49.0); Hemoglobin 13.5 g/dL (12.0-15.0); Immature Granulocyte Absolute 0.02 K/mm3 (0.00-0.00); Immature Granulocyte Percent A 0.4 % (0.0-0.0); Lymphocytes Absolute Auto 1.81 K/mm3 (1.10-4.50); Lymphocytes Percent Auto 33.8 % (18.0-42.0); Mean Corpuscular HGB Conc 34.4 g/dL (32.0-36.0); Mean Corpuscular Volume 90.3 fL (78.0-102.0); Mean Platelet Volume 10.1 fl (9.2-11.8); Monocytes Absolute Auto 0.37 K/mm3 (0.10-0.90); Monocytes Percent Auto 6.9 % (2.0-11.0); Neutrophils Absolute Auto 3.1 K/mm3 (1.7-7.2); Neutrophils Percent Auto 57.2 % (50.0-70.0); Platelet Count Result 252 K/mm3 (150-420); Red Blood Count 4.35 M/mm3 (4.20-5.40); Red Cell Distribution Width 12.2 % (11.6-14.4); White Blood Count 5.4 K/mm3 (4.8-10.8)
[2022-02-09 18:13] LABS: Partial Thromboplastin Time 27.3 SEC (23.90-30.70); Prothrombin Time 11.2 Seconds (9.50-12.10)
[2022-02-09 18:54] LABS: Pregnancy On Board Control Positive; Urine Pregnancy Test Negative
[2022-02-09 19:00] VITALS: BP 118/87; PULSE 99; RESP 18; O2SAT 100
[2022-02-09 20:01] LABS: Alanine Aminotransferase 16 U/L (6-35); Albumin Level 4.4 g/dL (3.5-5.1); Alkaline Phosphatase 68 U/L (38-126); Anion Gap 12 mmol/L (8-16); Aspartate Amino Transferase 31 U/L (14-36); Bilirubin,Total 0.3 mg/dL (0.2-1.3); Blood Urea Nitrogen 6 mg/dL (7-17); Calcium 9.3 mg/dL (8.4-10.2); Carbon Dioxide 25 mmol/L (22-30); Chloride 102 mmol/L (98-107); Estimated Glomerular Filt Rate > 60; Glucose 81 mg/dL (65-110); Osmolality Calculated 284 mOsm/kg (285-295); Potassium 4.1 mmol/L (3.4-5.0); Sodium 139 mmol/L (137-145)
[2022-02-09 20:11] LABS: Troponin I < 0.012 ng/mL (0.000-0.034)
[2022-02-09 21:00] VITALS: BP 140/92; PULSE 81; RESP 17; TEMP 36.6; O2SAT 100
== END 2022-02-09 21:26 | disposition home or self-care (01) ==
PROVIDERS: Emergency Provider Internal Medicine Critical Care Medicine; PCP Family Medicine
DX: F41.9 Anxiety disorder, unspecified (principal); R00.2 Palpitations; N92.0 Excessive and frequent menstruation with regular cycle
CPT/HCPCS: 36415; 80053; 81025; 84443; 84484; 85025; 85610; 85730; 93005; 99284

== ENCOUNTER 2022-03-10 10:03 | Emergency (ER) | payer OTHER, SELFPAY ==
--- NOTE | ~2022-03-10 | XR_ITS ---
EXAMINATION:XR cervical spine 4-5V DATE: 03/10/2022 10:57 INDICATION: Right-sided neck pain TECHNIQUE: AP, lateral, lateral swimmers and odontoid views of the cervical spine are provided. COMPARISON: CT dated 06/17/2021 FINDINGS: Alignment is normal. Odontoid is intact. Normal atlantoaxial interval. Vertebral body heights are no rmal. Mild disc height loss at C4-C5 and C5-C6. Multilevel minimal to mild cervical uncovertebral and facet osteoarthritis. Prevertebral soft tissues are normal. IMPRESSION: 1. Minimal to mild cervical spondylosis. Reviewed, dictated and finalized at location A.
[2022-03-10 10:14] VITALS: BP 137/89; PULSE 100; RESP 16; TEMP 36.6; O2SAT 100
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
[2022-03-10] MEDS: diphenhydrAMINE HCl INJ 50 MG/ML VIAL IV PUSH (10:35)
[2022-03-10 11:51] VITALS: BP 115/71; PULSE 76; RESP 19; TEMP 37; O2SAT 98
== END 2022-03-10 12:03 | disposition home or self-care (01) ==
PROVIDERS: Emergency Provider Emergency Medicine; PCP Family Medicine
DX: S16.1XXA Strain of muscle, fascia and tendon at neck level, initial encounter (principal); M43.6 Torticollis
CPT/HCPCS: 72050; 96374; 96375; 99284; J0131; J1200

== ENCOUNTER 2022-03-11 13:03 | Emergency (ER) | payer OTHER, SELFPAY ==
--- NOTE | ~2022-03-11 | XR_ITS ---
EXAMINATION: XR chest 1V portable 03/11/2022 13:36 INDICATION: Chest pain PROCEDURE: AP portable chest COMPARISON: Comparison to multiple prior studies sequentially, with oldest reviewed study dated 06/28. FINDINGS: The lungs are clear. The cardiomediastinal silhouette is within normal limits. There are no pleural effusions. There is no pneumothorax suspected. IMPRESSION: 1: NO ACUTE CARDIOPULMONARY DISEASE. Reviewed, dictated and finalized at location A.
--- NOTE | 2022-03-11 13:17 | ECG_ITS ---
Measurements Intervals [place] Rate: 92 P: 72 MS: 163 QRS: 40 QRSD: 93 T: 48 QT: 368 QTc: 456 Interpretive Statements SINUS RHYTHM POOR R-WAVE PROGRESSION BASELINE ARTIFACT BORDERLINE ECG COMPARED TO ECG 02/09/2022 17:53:48 NO SIGNIFICANT CHANGES Electronically Signed On 03-11-2022 14:36:54 CDT by Mykel Mccrary M.D.
[2022-03-11 13:21] VITALS: BP 131/98; PULSE 95; RESP 20; TEMP 36.6; O2SAT 100
--- NOTE | 2022-03-11 13:39 | PC.NURSE ---
Addendum entered by Patricia Cintron RN 03/11/22 14:02: [employer] test Original Note: RN to administer valium and pt states she cannot take valium because she had a gen-psych test done and that is the worst medication for me . ERP aware.
[2022-03-11 13:46] LABS: Basophils Absolute Auto 0.04 K/mm3 (0.00-0.10); Basophils Percent Auto 0.6 % (0.0-1.0); Eosinophils Absolute Auto 0.04 K/mm3 (0.02-0.50); Eosinophils Percent Auto 0.6 % (1.0-6.0); Hematocrit 40.2 % (35.0-49.0); Hemoglobin 13.9 g/dL (12.0-15.0); Immature Granulocyte Absolute 0.02 K/mm3 (0.00-0.00); Immature Granulocyte Percent A 0.3 % (0.0-0.0); Lymphocytes Absolute Auto 1.59 K/mm3 (1.10-4.50); Mean Corpuscular HGB Conc 34.6 g/dL (32.0-36.0); Mean Corpuscular Volume 89.7 fL (78.0-102.0); Mean Platelet Volume 9.7 fl (9.2-11.8); Monocytes Absolute Auto 0.46 K/mm3 (0.10-0.90); Monocytes Percent Auto 6.4 % (2.0-11.0); Neutrophils Absolute Auto 5.1 K/mm3 (1.7-7.2); Neutrophils Percent Auto 70.1 % (50.0-70.0); Platelet Count Result 287 K/mm3 (150-420); Red Blood Count 4.48 M/mm3 (4.20-5.40); Red Cell Distribution Width 11.9 % (11.6-14.4); White Blood Count 7.2 K/mm3 (4.8-10.8)
[2022-03-11] MEDS: ORPHENADRINE CITRATE 30 MG/ML 2 ML VIAL 60 MG IM (13:57)
[2022-03-11 14:01] LABS: INR 1.1; Prothrombin Time 11.7 Seconds (9.50-12.10)
--- NOTE | 2022-03-11 14:03 | PC.NURSE ---
Pt gave RN a copy of her [employer] test results so they can be put in the chart .
[2022-03-11 14:07] LABS: Alanine Aminotransferase 13 U/L (14-59); Alkaline Phosphatase 85 U/L (46-116); Anion Gap 11 mmol/L (8-16); Aspartate Amino Transferase 10 U/L (15-37); Bilirubin,Total 0.6 mg/dL (0.00-1.00); Blood Urea Nitrogen 7 mg/dL (7-18); Calcium 8.8 mg/dL (8.5-10.1); Carbon Dioxide 24 mmol/L (21-32); Chloride 106 mmol/L (98-108); Estimated Glomerular Filt Rate > 60; Glucose 93 mg/dL (70-99); Osmolality Calculated 290 mOsm/kg (285-295); Potassium 3.8 mmol/L (3.5-5.1); Sodium 141 mmol/L (136-145); Total Protein 7.4 g/dL (6.4-8.2)
[2022-03-11 14:08] LABS: Troponin I < 4.0 ng/L (0.00-60.4)
--- NOTE | 2022-03-11 14:08 | ED.CHESTPAIN ---
HPI - Chest Pain General Chief Complaint: Dizziness Stated Complaint: NECK PAIN, RIGHT SIDED PAIN Time Seen by Provider: 03/11/22 13:10 History of Present Illness HPI narrative: Pt presents with numerous complaints. Pt was seen in ED yesterday for neck pain on right side. Pt says that is still present and the muscle relaxer is helping some but not completely. Pt now notices pain on the right side of her chest that has been present all days today (6-8 hrs). Pain is not associated with movement or exertion and she cannot reproduce the pain. Pt has not tried anything to releive the pain. Pt denies SOB but says her home pulse ox was dropping to 90% (100% here) Related Data Home Medications Medication Instructions Recorded Confirmed omeprazole 40 mg capsule,delayed 40 mg BID 12/26/21 03/11/22 release cyclobenzaprine 10 mg tablet 10 mg PO DAILY 03/10/22 03/11/22 hydroxyzine HCl 25 mg tablet 25 mg PO TID 03/10/22 03/11/22 metoprolol succinate 25 mg 25 mg PO DAILY 03/10/22 03/11/22 tablet,extended release 24 hr venlafaxine 37.5 mg tablet 37.5 mg PO DAILY 03/10/22 03/11/22 Allergies Allergy/AdvReac Type Severity Reaction Status Date / Time amoxicillin [From Augmentin] Allergy Hives Verified 03/11/22 13:20 clavulanic acid Allergy Hives Verified 03/11/22 13:20 [From Augmentin] codeine Allergy Anxiety Verified 03/11/22 13:20 fentanyl Allergy Anxiety Verified 03/11/22 13:20 ketorolac Allergy Hives Verified 03/11/22 13:20 morphine Allergy Anxiety Verified 03/11/22 13:20 Penicillins Allergy Hives Verified 03/11/22 13:20 hydrocodone AdvReac Vomiting Verified 03/11/22 13:20 ibuprofen [From Motrin] AdvReac Other Verified 03/11/22 13:20 tramadol AdvReac Vomiting Verified 03/11/22 13:20 PROPOXYPHENE NAPSYLATE Allergy Mild Unknown Uncoded 03/10/22 10:20 Review of Systems Review of Systems: All systems reviewed & are unremarkable except as noted in HPI and below PMFSH Past Medical History Medical History (Updated 03/11/22 @ 14:31 by MINE Yan III Chest pain Chronic GERD HTN (hypertension) Kidney stones Torticollis Social History Social History Tobacco type: e-cigarettes/vaping Alcohol intake: never Substance use: never Gender identity (if verbalized by the patient): Female Exam Const: General: healthy appearing Nutritional Appearance: well nourished Orientation/consciousness: patient oriented x3 Limitations: no limitations Neck: Neck: normal visual inspection Chest: Chest palpation & inspection: normal inspection of the chest Other: no tenderness ot palpation Resp: Effort & Inspection: normal respiratory effort Auscultation: clear to auscultation bilaterally Cardio: Rate: regular rate Rhythm: regular rhythm GI: GI Palp: Yes Soft to palpation Auscultation: normal bowel sounds Skin: General skin exam: normal color Neuro: General: patient oriented x3, moves all extremities, no meningeal signs and no focal motor deficits Cranial nerves: Yes Nystagmus not present Speech: normal speech Extrem: General: normal to inspection and no clubbing, cyanosis or edema Psych: Mental Status: mental status grossly normal Affect: Anxious affect present Attitude: cooperative Course Vital Signs Vital signs: Vital Signs Temperature 97.9 F 03/11/22 13:21 Pulse Rate 95 03/11/22 13:21 Respiratory Rate 20 03/11/22 13:21 Blood Pressure 131/98 H 03/11/22 13:21 Pulse Oximetry 100 03/11/22 13:21 Oxygen Delivery Room Air 03/11/22 13:21 Temperature 97.9 F 03/11/22 13:21 Pulse Rate 79 03/11/22 14:40 Respiratory Rate 16 03/11/22 14:40 Blood Pressure 119/84 03/11/22 14:40 Pulse Oximetry 99 03/11/22 14:40 Oxygen Delivery Room Air 03/11/22 14:40 MDM - Chest Pain Lab Data Result diagrams: 03/11/22 13:40 03/11/22 13:40 Labs: Lab Results 03/11/22 03/11/22
[2022-03-11 14:40] VITALS: BP 119/84; PULSE 79; RESP 16; O2SAT 99
== END 2022-03-11 14:42 | disposition home or self-care (01) ==
PROVIDERS: Emergency Provider Emergency Medicine; PCP Family Medicine
DX: R07.89 Other chest pain (principal)
CPT/HCPCS: 36415; 71045; 80053; 84484; 85025; 85610; 85730; 93005; 96372; 99284; J2360

== ENCOUNTER 2022-03-20 11:05 | Emergency (ER) | payer OTHER, SELFPAY ==
[2022-03-20] VITALS (38 sets, daily range): BP systolic 103–133; BP diastolic 70–100; PULSE 88–163; RESP 9–21; TEMP 36.7; O2SAT 94–100
--- NOTE | 2022-03-20 11:19 | ED.GENADULT ---
HPI - General Adult General Chief complaint: Unspecified Stated complaint: L armpit pain/Head bhandari /lightheaded Time Seen by Provider: 03/20/22 11:19 Source: patient History of Present Illness HPI narrative: 41-year-old female with a history of hypertension, tachycardia, GERD, torticollis, chest pain presents to the ER with -- dizziness since last night. Patient feels the room is spinning. this is worse on standing. -- Frontal headache started this morning. No nausea/vomiting. No prior history of migraine -- stabbing left arm pain which started 3 days ago. Presently she does not have any pain. Patient is A1. Onset (ago): day(s) ( Started yesterday.) Quality: aching Relieving factors: none Exacerbating factors: none Treatments prior to arrival: none Related Data Home Medications Medication Instructions Recorded Confirmed omeprazole 40 mg capsule,delayed 40 mg BID 12/26/21 03/20/22 release cyclobenzaprine 10 mg tablet 10 mg PO DAILY 03/10/22 03/20/22 hydroxyzine HCl 25 mg tablet 25 mg PO TID 03/10/22 03/20/22 venlafaxine 37.5 mg tablet 37.5 mg PO DAILY 03/10/22 03/20/22 Allergies Allergy/AdvReac Type Severity Reaction Status Date / Time amoxicillin [From Augmentin] Allergy Hives Verified 03/20/22 11:14 clavulanic acid Allergy Hives Verified 03/20/22 11:14 [From Augmentin] codeine Allergy Anxiety Verified 03/20/22 11:14 fentanyl Allergy Anxiety Verified 03/20/22 11:14 ketorolac Allergy Hives Verified 03/20/22 11:14 morphine Allergy Anxiety Verified 03/20/22 11:14 Penicillins Allergy Hives Verified 03/20/22 11:14 hydrocodone AdvReac Vomiting Verified 03/20/22 11:14 ibuprofen [From Motrin] AdvReac Other Verified 03/20/22 11:14 tramadol AdvReac Vomiting Verified 03/20/22 11:14 PROPOXYPHENE NAPSYLATE Allergy Mild Unknown Uncoded 03/20/22 11:14 Review of Systems Review of Systems: All systems reviewed & are unremarkable except as noted in HPI and below Constitutional: Constitutional: Reports as per HPI and Reports no additional constitutional complaints Comments: dizziness Eyes: Eyes: Reports as per HPI and Reports no additional eye complaints ENT: Reports system reviewed and no additional complaints, except as documented and Reports as per HPI Cardiovascular: Cardiovascular: Reports as per HPI and Reports no additional cardiovascular complaints Respiratory: Respiratory: Reports as per HPI and Reports no additional respiratory complaints Gastrointestinal: Gastrointestinal: Reports as per HPI and Reports no additional gastrointestinal complaints Genitourinary: Genitourinary: Reports no additional female genitourinary complaints and Reports as per HPI Musculoskeletal: Musculoskeletal: Reports no additional musculoskeletal complaints and Reports as per HPI Comments: Left arm pain Integumentary/Breasts: Skin/Breast: Reports system reviewed and no additional complaints, except as docu and Reports as per HPI Neurologic: Reports system reviewed and no additional complaints, except as documented and Reports as per HPI Psychiatric: Psychiatric: Reports no additional psychiatric complaints and Reports as per HPI Endocrine: Endocrine: Reports no additional endocrine complaints and Reports as per HPI Hematologic/Lymphatic: Hematologic/Lymphatic: Reports no additional hematologic/lymphatic complaints and Reports as per HPI Allergic/Immunologic: Allergic/Immunologic: Reports no additional allergic/immunologic complaints and Reports as per HPI [facility] Past Medical History Medical History Chest pain Chronic GERD HTN (hypertension) Kidney stones Torticollis Social History Social History Tobacco type: e-cigarettes/vaping Alcohol intake: never Substance use: never Gender identity (if verbalized by the patient): Female Exam Const: General: cooperative, healthy appeari
[2022-03-20 11:20] LABS: Glucose Point of Care 147 mg/dl (65-105)
--- NOTE | 2022-03-20 11:28 | ECG_ITS ---
Measurements Intervals [place] Rate: 115 P: 33 NE: 171 QRS: 15 QRSD: 93 T: 15 QT: 334 QTc: 463 Interpretive Statements SINUS TACHYCARDIA NONSPECIFIC ST CHANGES ABNORMAL RHYTHM ECG COMPARED TO ECG 03/11/2022 13:27:38 SINUS TACHYCARDIA NOW PRESENT Electronically Signed On 03-20-2022 19:39:33 CDT by Rosalinda Agustin M.D.
--- NOTE | 2022-03-20 11:34 | PC.NURSE ---
PT REPORTS SHE WAS RECENTLY TAKEN OFF HER METOPROLOL DUE TO HYPOTENSION. PT REPORTS LAST PM WHEN SHE FELT DIZZY HER BP WAS NOTED 100/60 AND HR 120. PT IS SINUS TACH UPON ARRIVAL TO ER. DENIES ANY CP OR SOB. DECORATING INSTRUCTOR WAS APPLIED.
[2022-03-20 11:35] LABS: Appearance Urine Clear (Clear); Bilirubin Urine Negative (Negative); Blood Urine 2+ (Negative); Glucose Urine UA Negative (Negative); Ketones Urine Negative (Negative); Leukocyte Esterase Ur Negative (Negative); Nitrate Urine Negative (Negative); Protein Urine Negative (Negative); Specific Grav Ur <= 1.005 (1.010-1.020); Urobilinogen Urine 0.2 mg/dL (0.2-1.0)
[2022-03-20 11:36] LABS: Pregnancy On Board Control Positive; Urine Pregnancy Test Negative
[2022-03-20 11:39] LABS: Add Urine Microscopic? YES; Bacteria Urine None seen /hpf; Color Urine Light Yellow (Yellow); Squamous Epithelial Cell Urine Occasional /hpf (Few); WBC Urine None seen /hpf (0-3)
[2022-03-20 11:46] LABS: Basophils Absolute Auto 0.04 K/mm3 (0.00-0.10); Basophils Percent Auto 0.5 % (0.0-1.0); Eosinophils Absolute Auto 0.06 K/mm3 (0.02-0.50); Eosinophils Percent Auto 0.8 % (1.0-6.0); Hematocrit 37.7 % (35.0-49.0); Hemoglobin 12.6 g/dL (12.0-15.0); Immature Granulocyte Absolute 0.01 K/mm3 (0.00-0.00); Immature Granulocyte Percent A 0.1 % (0.0-0.0); Lymphocytes Absolute Auto 1.47 K/mm3 (1.10-4.50); Lymphocytes Percent Auto 18.5 % (18.0-42.0); Mean Corpuscular HGB Conc 33.4 g/dL (32.0-36.0); Mean Corpuscular Hemoglobin 30.1 pg (27.0-31.0); Mean Corpuscular Volume 90.2 fL (78.0-102.0); Mean Platelet Volume 9.8 fl (9.2-11.8); Monocytes Absolute Auto 0.41 K/mm3 (0.10-0.90); Monocytes Percent Auto 5.2 % (2.0-11.0); Neutrophils Percent Auto 74.9 % (50.0-70.0); Platelet Count Result 252 K/mm3 (150-420); Red Blood Count 4.18 M/mm3 (4.20-5.40); Red Cell Distribution Width 11.9 % (11.6-14.4); White Blood Count 7.9 K/mm3 (4.8-10.8)
[2022-03-20 12:01] LABS: Alanine Aminotransferase 12 U/L (14-59); Albumin Level 3.7 g/dL (3.4-5.0); Alkaline Phosphatase 85 U/L (46-116); Anion Gap 10 mmol/L (8-16); Aspartate Amino Transferase < 10 U/L (15-37); Bilirubin,Total 0.3 mg/dL (0.00-1.00); Blood Urea Nitrogen 5 mg/dL (7-18); Calcium 8.6 mg/dL (8.5-10.1); Carbon Dioxide 24 mmol/L (21-32); Chloride 106 mmol/L (98-108); Estimated CRCL calculation 49 ml/min; Estimated Glomerular Filt Rate > 60; Glucose 120 mg/dL (70-99); Osmolality Calculated 288 mOsm/kg (285-295); Potassium 3.7 mmol/L (3.5-5.1); Sodium 140 mmol/L (136-145); Total Protein 7.2 g/dL (6.4-8.2)
[2022-03-20 12:07] LABS: Troponin I < 4.0 ng/L (0.00-60.4)
[2022-03-20] MEDS: SODIUM CHLORIDE 0.9% IV 1,000 ML 999 ML IV CONT (12:10)
--- NOTE | 2022-03-20 12:12 | PC.NURSE ---
PT REPORTS SHE WAS FEELING LIKE I AM GOING TO PASS OUT AND MY HEART IS RACING.: PT OBSERVED TO HAVE HR OF 170, NO CHANGE WITH VAGAL MANEUVERS. ERP WAS NOTIFIED, IV SITE WAS ESTABLISHED. PT DID NOT BECOME DIAPHORETIC, NO LOC WAS OBSERVED. MEDICATIONS WERE ORDERED AND PRIOR TO ADMINISTRATION, HR IS 117. MEDICATION HELD, ERP AT BEDSIDE. IVF INFUSING ORDERED WITHOUT DIFFICULTY. WILL CONTINUE TO MONITOR.
[2022-03-20] MEDS: LORazepam (*CRX) 0.5 MG TABLET PO (12:38)
--- NOTE | 2022-03-20 12:47 | PC.NURSE ---
PT REPORTS SHE HAD BEEN TAKING ATIVAN FOR A LONG TIME, THEN HER PSYCHIATRIST STOPPED TAKING HER INSURANCE. PT REPORTS HER PMD WILL NOT PRESCRIBE IT FOR HER, THAT HE GIVES HER HYDROXYZINE, HOWEVER IT DOES NOT WORK. PT DID HAVE A CARDIAC CATH LAST YEAR AND RECREATION SUPERINTENDENT TOLD HER THAT HE THOUGHT SHE WAS HAVING HYPERVENTILATION TACHYCARDIA. ERP ATTEMPTED TO ORDER XANAX, PT REPORTS SHE HAD A GENEOSPOT TEST AND IT IS ON HER LIST OF POSSIBLE ADVERSE REACTIONS. PT DECLINED TO TAKE. PT PROVIDES LIST OF ADVISED MEDICATIONS AND ATIVAN WAS ORDERED PER ERP. WILL CONTINUE TO MONITOR.
--- NOTE | 2022-03-20 13:48 | PC.NURSE ---
PT WAS UP TO RR WITHOUT DISTRESS, RETURNS AND CARDIAC MONITORING CONTINUES. NAD NOTED. PT TO HAVE TROPONIN REPEATED AT 1441.
--- NOTE | 2022-03-20 14:51 | PC.NURSE ---
SON AT BEDSIDE. PT IS HAVING REPEAT TROPONIN DRAWN AT THIS TIME. NAD NOTED. WILL CONTINUE TO MONITOR.
[2022-03-20 15:19] LABS: Troponin I 5.9 ng/L (0.00-60.4)
--- NOTE | 2022-03-20 15:43 | PC.NURSE ---
PT REPORTS SHE FEELS BETTER POST ATIVAN. SON AT BEDSIDE TO TRANSPORT HOME. NAD NOTED. PT IS TO BE DC HOME.
--- NOTE | 2022-03-20 16:04 | PC.NURSE ---
SPOKE WITH [facility] IN [place], [place] TO ATTEMPT TO SCHEDULE PT AN APPOINTMENT WITH PSYCHIATRY PER DR ADORNO'S REQUEST. URGENT REFERRAL, FACE SHEET, AND DIAGNOSIS WERE FAXED TO [phone] ADVISED. PSYCHIATRY IS TO REVIEW CHART, AND CONTACT PATIENT TO SET APPOINTMENT. PT IS ADVISED OF PROCESS AND [address] CARD PROVIDED TO PT UPON DC. PT VERBALIZED UNDERSTANDING OF THIS PROCESS.
--- NOTE | 2022-03-21 10:50 | PC.NURSE ---
[facility] RETURNS FAX TO CONFIRM REFERRAL AND TO SCHEDULE APPOINTMENT WITH PT.
== END 2022-03-20 15:50 | disposition home or self-care (01) ==
PROVIDERS: Emergency Provider Internal Medicine Critical Care Medicine; PCP Family Medicine
DX: I47.9 Paroxysmal tachycardia, unspecified (principal); F41.0 Panic disorder [episodic paroxysmal anxiety]; R55 Syncope and collapse
CPT/HCPCS: 36415; 80053; 81001; 81025; 82948; 84484; 85025; 93005; 96360; 99284; A9270; J7030

== ENCOUNTER 2022-05-22 12:06 | Outpatient (CLI) | payer OTHER, SELFPAY ==
[2022-05-22 13:02] LABS: SARS-CoV-2 RNA PCR Negative (Negative)
== END 2022-05-22 12:07 | disposition home or self-care (01) ==
LOC: CHSLAB 12:09
PROVIDERS: PCP Family Medicine; Visit Provider Family Medicine
DX: Z20.822 Contact with and (suspected) exposure to COVID-19 (principal)
CPT/HCPCS: U0003; U0005

== ENCOUNTER 2022-07-12 02:56 | Emergency (ER) | payer OTHER, SELFPAY ==
[2022-07-12 03:00] VITALS: BP 143/107; PULSE 100; RESP 18; TEMP 36.7; O2SAT 100
[2022-07-12 03:04] VITALS: PULSE 100
[2022-07-12 03:06] VITALS: O2SAT 100
--- NOTE | 2022-07-12 03:13 | ECG_ITS ---
Measurements Intervals [place] Rate: 101 P: 36 MT: 170 QRS: -25 QRSD: 90 T: 37 QT: 332 QTc: 432 Interpretive Statements SINUS TACHYCARDIA BORDERLINE LEFT AXIS DEVIATION [QRS AXIS < -20] ABNORMAL RHYTHM ECG COMPARED TO ECG 03/20/2022 11:36:56 NO SIGNIFICANT CHANGES Electronically Signed On 07-12-2022 14:22:21 ENGINEERING PRODUCTION WORKER by Gustavo Villalobos M.D.
--- NOTE | 2022-07-12 03:13 | ED.CHESTPAIN ---
HPI - Chest Pain General Chief Complaint: Chest Pain Stated Complaint: Chest Pain Source: patient Mode of arrival: ambulatory Limitations: no limitations History of Present Illness HPI narrative: this is a 42-year-old female with a history of anxiety the headache had presents with some pain right-sided chest wall reproducible and occurs with movement started earlier today has been doing some vacuuming and currently about a 3 out 10 with no nausea no vomiting no shortness of breath no diaphoresis no radiation of her pain. She has no fever chills no audible wheezing no flank pain no abdominal pain. MD complaint: chest discomfort Onset (ago): hour(s) Timing of current episode: episodic Related Data Home Medications Medication Instructions Recorded Confirmed omeprazole 40 mg capsule,delayed 40 mg BID 12/26/21 07/12/22 release cyclobenzaprine 10 mg tablet 10 mg PO DAILY 03/10/22 07/12/22 hydroxyzine HCl 25 mg tablet 25 mg PO TID 03/10/22 07/12/22 venlafaxine 37.5 mg tablet 37.5 mg PO DAILY 03/10/22 07/12/22 Allergies Allergy/AdvReac Type Severity Reaction Status Date / Time amoxicillin [From Augmentin] Allergy Hives Verified 07/12/22 03:13 clavulanic acid Allergy Hives Verified 07/12/22 03:13 [From Augmentin] codeine Allergy Anxiety Verified 07/12/22 03:13 fentanyl Allergy Anxiety Verified 07/12/22 03:13 ketorolac Allergy Hives Verified 07/12/22 03:13 morphine Allergy Anxiety Verified 07/12/22 03:13 Penicillins Allergy Hives Verified 07/12/22 03:13 hydrocodone AdvReac Vomiting Verified 07/12/22 03:13 ibuprofen [From Motrin] AdvReac Other Verified 07/12/22 03:13 tramadol AdvReac Vomiting Verified 07/12/22 03:13 PROPOXYPHENE NAPSYLATE Allergy Mild Unknown Uncoded 03/20/22 11:14 Review of Systems Review of Systems: All systems reviewed & are unremarkable except as noted in HPI and below PMFSH Past Medical History Medical History Chest pain Chronic GERD HTN (hypertension) Kidney stones Torticollis Social History Social History Tobacco type: e-cigarettes/vaping Alcohol intake: never Substance use: never Living arrangements: with family Gender identity (if verbalized by the patient): Female Exam Const: General: healthy appearing Orientation/consciousness: patient oriented x3 Limitations: no limitations HENMT: Head: normal to inspection Face/Nose/Sinus: Normal external nose present Face and sinus: normal facial exam Mouth: Yes Normal oral and palatal mucosa present Eyes: Conjunctivae: conjunctivae normal Pupils: Equal, round and reactive pupils present EOM: EOMs intact bilaterally Direct Ophthalmoscopy: no photophobia Neck: Neck: normal visual inspection, no lymphadenopathy and no meningeal signs Chest: Chest palpation & inspection: normal inspection of the chest and tenderness Other: Reproducible chest pain with palpation right-sided chest wall Resp: Effort & Inspection: normal respiratory effort Auscultation: clear to auscultation bilaterally Cardio: Rate: regular rate Rhythm: regular rhythm GI: GI Palp: Yes Soft to palpation Auscultation: normal bowel sounds : General: Yes bladder normal to palpation Urinary Catheter: Urinary Catheter: patent and draining Back/Spine/Pelvis: Back: no CVA tenderness Skin: General skin exam: normal color Neuro: General: patient oriented x3, moves all extremities and no meningeal signs Extrem: General: normal to inspection, no clubbing, cyanosis or edema and no pedal edema Psych: Mental Status: mental status grossly normal Course Course Emergency Course: patient received a dose of Toradol patient apparently states that she has an allergy to toe Toradol but states it makes her nauseated not a true allergy, will give a dose of Zofran 0 DT EKG performed reviewed and compared with previous EKG showed no acute changes
[2022-07-12] MEDS: ONDANSETRON HCL ODT 4 MG TABLET PO (03:25)
[2022-07-12] MEDS: KETOROLAC (*BKC) 60 MG/2 ML VIAL IM (03:26)
[2022-07-12 03:34] VITALS: BP 128/88; PULSE 95; RESP 16; O2SAT 100
== END 2022-07-12 03:38 | disposition home or self-care (01) ==
LOC: CHSED 03:24
PROVIDERS: Emergency Provider Emergency Medicine; PCP Family Medicine
DX: M94.0 Chondrocostal junction syndrome [Tietze] (principal); I10 Essential (primary) hypertension; F17.290 Nicotine dependence, other tobacco product, uncomplicated
CPT/HCPCS: 93005; 96372; 99283; A9270; J1885

== ENCOUNTER 2022-08-02 11:28 | Outpatient (CLI) | payer OTHER, SELFPAY ==
[2022-08-02 11:46] LABS: Basophils Absolute Auto 0.04 K/mm3 (0.00-0.10); Basophils Percent Auto 0.7 % (0.0-1.0); Eosinophils Absolute Auto 0.04 K/mm3 (0.02-0.50); Eosinophils Percent Auto 0.7 % (1.0-6.0); Hematocrit 38.8 % (35.0-49.0); Hemoglobin 12.9 g/dL (12.0-15.0); Immature Granulocyte Absolute 0.02 K/mm3 (0.00-0.00); Immature Granulocyte Percent A 0.3 % (0.0-0.0); Lymphocytes Absolute Auto 2.09 K/mm3 (1.10-4.50); Lymphocytes Percent Auto 34.7 % (18.0-42.0); Mean Corpuscular HGB Conc 33.2 g/dL (32.0-36.0); Mean Corpuscular Hemoglobin 28.5 pg (27.0-31.0); Mean Corpuscular Volume 85.8 fL (78.0-102.0); Mean Platelet Volume 9.1 fl (9.2-11.8); Monocytes Absolute Auto 0.33 K/mm3 (0.10-0.90); Monocytes Percent Auto 5.5 % (2.0-11.0); Neutrophils Absolute Auto 3.5 K/mm3 (1.7-7.2); Neutrophils Percent Auto 58.1 % (50.0-70.0); Platelet Count Result 312 K/mm3 (150-420); Red Blood Count 4.52 M/mm3 (4.20-5.40); Red Cell Distribution Width 13.1 % (11.6-14.4)
[2022-08-02 12:14] LABS: Iron 93 ug/dL (50-170); Percent Iron Saturation 22 % (12-57)
== END 2022-08-02 11:29 | disposition home or self-care (01) ==
PROVIDERS: PCP Family Medicine
DX: D51.9 Vitamin B12 deficiency anemia, unspecified (principal)
CPT/HCPCS: 36415; 83540; 83550; 85025

== ENCOUNTER 2022-09-19 19:37 | Emergency (ER) | payer OTHER, SELFPAY ==
--- NOTE | ~2022-09-19 | CT_ITS ---
EXAMINATION: CT cervical spine wo con DATE: 09/19/2022 21:20 INDICATION: Neck pain TECHNIQUE: Computed tomography (CT) of the cervical spine was performed without intravenous contrast. The dose-length product (DLP) was 145.38 mGy-cm. Automated exposure control and iterative reconstruc tion technique were employed. COMPARISON: None FINDINGS: Bone alignment is normal. There is no fracture. There is mild loss of intervertebral disc s pace height at C4-5 and C5-6. The vertebral body heights are maintained. The odontoid process is inta ct. There is mild facet and uncovertebral joint osteoarthritis. IMPRESSION: 1. Mild cervical spondylosis without acute findings. Reviewed, dictated and finalized at location F.
--- NOTE | ~2022-09-19 | CT_ITS ---
EXAMINATION: CT brain wo con INDICATION: Headache COMPARISON: None TECHNIQUE: Standard unenhanced head CT. The dose-length product (DLP) was 605.33 mGy-cm. The mA was a djusted according to patient size. Iterative reconstruction technique was employed. FINDINGS: There is no intracranial hemorrhage, acute infarction, or abnormal mass lesion. The ventric les are normal. There is no abnormal mass effect or midline shift. The pepper-white matter differentiat ion is normal. The basal cisterns are patent. The orbits are normal. The paranasal sinuses, mastoids and calvarium are normal. IMPRESSION: 1. No acute intracranial abnormality. Reviewed, dictated and finalized at location F.
[2022-09-19 19:53] VITALS: BP 124/88; PULSE 98; RESP 18; TEMP 36.5; O2SAT 100
[2022-09-19] MEDS: MECLIZINE HCL 25 MG TABLET PO (20:19)
[2022-09-19 20:29] LABS: Basophils Absolute Auto 0.05 K/mm3 (0.00-0.10); Basophils Percent Auto 1.1 % (0.0-1.0); Eosinophils Absolute Auto 0.04 K/mm3 (0.02-0.50); Eosinophils Percent Auto 0.8 % (1.0-6.0); Hematocrit 38.1 % (35.0-49.0); Hemoglobin 12.4 g/dL (12.0-15.0); Immature Granulocyte Absolute 0.02 K/mm3 (0.00-0.00); Immature Granulocyte Percent A 0.4 % (0.0-0.0); Lymphocytes Absolute Auto 1.53 K/mm3 (1.10-4.50); Lymphocytes Percent Auto 32.5 % (18.0-42.0); Mean Corpuscular HGB Conc 32.5 g/dL (32.0-36.0); Mean Platelet Volume 10.5 fl (9.2-11.8); Monocytes Absolute Auto 0.57 K/mm3 (0.10-0.90); Monocytes Percent Auto 12.1 % (2.0-11.0); Neutrophils Absolute Auto 2.5 K/mm3 (1.7-7.2); Neutrophils Percent Auto 53.1 % (50.0-70.0); Platelet Count Result 266 K/mm3 (150-420); Red Blood Count 4.43 M/mm3 (4.20-5.40); Red Cell Distribution Width 13.3 % (11.6-14.4); White Blood Count 4.7 K/mm3 (4.8-10.8)
--- NOTE | 2022-09-19 21:31 | ED.HA ---
HPI - Headache General Chief Complaint: Headache Stated Complaint: LAST/Dizziness Time Seen by Provider: 09/19/22 19:50 Source: patient Mode of arrival: ambulatory Limitations: no limitations History of Present Illness HPI Narrative: This is a 42-year-old female with a 3 day history of dizziness and mild headache and neck pain with no known injuries with no nausea vomiting headache is mild patient is scheduled for an MRI by her primary care physician, currently no nausea vomiting does have light sensitivity with some no fever chills no chest pain no shortness of breath has good range of motion in her neck with no stiffness no blurry vision. MD elicited complaint: headache Onset (ago): hour(s) Onset description: gradually Severity: mild Quality & Timing: throbbing Related Data Home Medications Medication Instructions Recorded Confirmed omeprazole 40 mg capsule,delayed 40 mg BID 12/26/21 09/19/22 release Maalox 10 ml PO BID 09/19/22 09/19/22 gabapentin 100 mg capsule 100 mg PO Q6-8H 09/19/22 09/19/22 multivitamin with iron 1 tablet PO DAILY 09/19/22 09/19/22 vortioxetine 10 mg tablet 10 mg PO DAILY 09/19/22 09/19/22 (Trintellix) Allergies Allergy/AdvReac Type Severity Reaction Status Date / Time acetaminophen Allergy Unknown Verified 09/19/22 19:50 [From Darvocet-N] amoxicillin [From Augmentin] Allergy Hives Verified 07/12/22 03:13 clavulanic acid Allergy Hives Verified 07/12/22 03:13 [From Augmentin] codeine Allergy Anxiety Verified 07/12/22 03:13 fentanyl Allergy Anxiety Verified 07/12/22 03:13 ketorolac Allergy Hives Verified 07/12/22 03:13 morphine Allergy Anxiety Verified 07/12/22 03:13 Penicillins Allergy Hives Verified 07/12/22 03:13 propoxyphene Allergy Unknown Verified 09/19/22 19:50 [From Darvocet-N] hydrocodone AdvReac Vomiting Verified 07/12/22 03:13 ibuprofen [From Motrin] AdvReac Other Verified 07/12/22 03:13 tramadol AdvReac Vomiting Verified 07/12/22 03:13 PROPOXYPHENE NAPSYLATE Allergy Mild Unknown Uncoded 03/20/22 11:14 Review of Systems Review of Systems: All systems reviewed & are unremarkable except as noted in HPI and below PMFSH Past Medical History Medical History Chest pain Chronic GERD HTN (hypertension) Kidney stones Torticollis Social History Social History Tobacco type: e-cigarettes/vaping Alcohol intake: never Substance use: never Living arrangements: with family Gender identity (if verbalized by the patient): Female Exam Const: General: healthy appearing Nutritional Appearance: well nourished Orientation/consciousness: patient oriented x3 Limitations: no limitations HENMT: Head: normal to inspection Eyes: Conjunctivae: conjunctivae normal Pupils: Equal, round and reactive pupils present EOM: EOMs intact bilaterally Neck: Neck: normal visual inspection Chest: Chest palpation & inspection: normal inspection of the chest Resp: Effort & Inspection: normal respiratory effort Auscultation: clear to auscultation bilaterally Cardio: Rate: regular rate Rhythm: regular rhythm GI: GI Palp: Yes Soft to palpation Auscultation: normal bowel sounds Skin: General skin exam: normal color Rashes: no rashes Wounds: no wounds Neuro: General: patient oriented x3, moves all extremities, no meningeal signs and no focal motor deficits Cranial nerves: Yes Nystagmus not present Speech: normal speech Gait exam (Neuro): Normal gait present Extrem: General: normal to inspection Psych: Mental Status: mental status grossly normal Affect: normal affect Course Course Emergency Course: Patient received meclizine for her dizziness and symptoms have improved, reviewed her blood counts which patient states that she has a history of iron deficiency but her blood counts are in normal range with a normal MCV. Patient had CT scan of her
[2022-09-19 21:54] VITALS: BP 118/84; PULSE 88; RESP 20; TEMP 36.6; O2SAT 98
== END 2022-09-19 21:58 | disposition home or self-care (01) ==
PROVIDERS: Emergency Provider Emergency Medicine; PCP Family Medicine
DX: G43.909 Migraine, unspecified, not intractable, without status migrainosus (principal); I10 Essential (primary) hypertension; F17.290 Nicotine dependence, other tobacco product, uncomplicated
CPT/HCPCS: 36415; 70450; 72125; 85025; 99284; A9270

== ENCOUNTER 2022-12-06 16:41 | Emergency (ER) | payer OTHER, SELFPAY ==
--- NOTE | ~2022-12-06 | XR_ITS ---
EXAMINATION: XR chest 2V Exam Date/Time: 12/06/2022 17:20 CDT HISTORY: RIGHT SIDED CHEST PAIN TODAY. PAIN W/ INSPIRATION Comparison: 03/11/2022. RESULT: Lines, tubes, and devices: Cholecystectomy clips. Lungs and pleura: Clear. Cardiomediastinal silhouette: Stable. Other: No acute osseous or upper abdominal finding. IMPRESSION: No acute cardiopulmonary process. Reviewed, dictated and finalized at location K.
[2022-12-06 16:41] VITALS: BP 138/87; PULSE 84; RESP 16; TEMP 36.5; O2SAT 100; O2SAT 98
--- NOTE | 2022-12-06 16:53 | ED.CHESTPAIN ---
HPI - Chest Pain General Chief Complaint: Chest Pain Stated Complaint: right side chest pain Time Seen by Provider: 12/06/22 16:50 History of Present Illness HPI narrative: patient states she has a history of inflammatory PCOS and endometriosis and thinks this might be causing the pain in her right side of her chest that goes from her sternum over the right breast. She has no other associated symptoms. Been going on for 2 days and it is constant. MD complaint: chest pain Onset (ago): day(s) (2) Timing of current episode: constant Onset: during rest Pain location: right chest Pain radiation: other ( Right breast) Severity: moderate Quality: aching and dull Relieving factors: nothing Exacerbating factors: movement Associated symptoms: other ( No associated symptoms) Treatment prior to arrival: none Related Data Home Medications Medication Instructions Recorded Confirmed omeprazole 40 mg capsule,delayed 40 mg BID 12/26/21 12/06/22 release Maalox 10 ml PO BID 09/19/22 12/06/22 gabapentin 100 mg capsule 100 mg PO Q6-8H 09/19/22 12/06/22 multivitamin with iron 1 tablet PO DAILY 09/19/22 12/06/22 vortioxetine 10 mg tablet 10 mg PO DAILY 09/19/22 12/06/22 (Trintellix) Allergies Allergy/AdvReac Type Severity Reaction Status Date / Time acetaminophen Allergy Unknown Verified 09/19/22 19:50 [From Darvocet-N] amoxicillin [From Augmentin] Allergy Hives Verified 07/12/22 03:13 clavulanic acid Allergy Hives Verified 07/12/22 03:13 [From Augmentin] codeine Allergy Anxiety Verified 07/12/22 03:13 fentanyl Allergy Anxiety Verified 07/12/22 03:13 ketorolac Allergy Hives Verified 07/12/22 03:13 morphine Allergy Anxiety Verified 07/12/22 03:13 Penicillins Allergy Hives Verified 07/12/22 03:13 propoxyphene Allergy Unknown Verified 09/19/22 19:50 [From Darvocet-N] hydrocodone AdvReac Vomiting Verified 07/12/22 03:13 ibuprofen [From Motrin] AdvReac Other Verified 07/12/22 03:13 tramadol AdvReac Vomiting Verified 07/12/22 03:13 PROPOXYPHENE NAPSYLATE Allergy Mild Unknown Uncoded 03/20/22 11:14 Review of Systems Review of Systems: All systems reviewed & are unremarkable except as noted in HPI and below Constitutional: Constitutional: Denies excessive sweating Respiratory: Respiratory: Denies dyspnea Gastrointestinal: Gastrointestinal: Denies nausea and Denies vomiting PMFSH Past Medical History Medical History Chest pain Chronic GERD HTN (hypertension) Kidney stones Torticollis Social History Social History Tobacco type: e-cigarettes/vaping Alcohol intake: never Substance use: never Living arrangements: with family Gender identity (if verbalized by the patient): Female Exam Const: General: healthy appearing, no acute distress and alert Nutritional Appearance: well nourished Orientation/consciousness: patient oriented x3 Limitations: no limitations Other: Female tech in room during exam HENMT: Head: normal to inspection Ears: external ears normal Face/Nose/Sinus: Normal external nose present Face and sinus: normal facial exam Mouth: Yes moist mucous membranes Eyes: Conjunctivae: conjunctivae normal Pupils: Equal, round and reactive pupils present EOM: EOMs intact bilaterally Neck: Neck: normal visual inspection Chest: Chest palpation & inspection: tenderness pectoral muscle on the right diffusely Resp: Effort & Inspection: normal respiratory effort Auscultation: clear to auscultation bilaterally Cardio: Rate: regular rate Rhythm: regular rhythm GI: GI Palp: Yes Soft to palpation and No Tenderness to palpation present (GI) Auscultation: normal bowel sounds Back/Spine/Pelvis: Cervical Spine: cervical ROM normal Thoracic/Lumbar Spine: thoraco-lumbar ROM normal Skin: General skin exam: normal color Rashes: no rashes Neuro: General: patient orient
--- NOTE | 2022-12-06 16:58 | ECG_ITS ---
Measurements Intervals [place] Rate: 83 P: 42 LA: 163 QRS: -25 QRSD: 92 T: 42 QT: 373 QTc: 440 Interpretive Statements SINUS RHYTHM BORDERLINE LEFT AXIS DEVIATION [QRS AXIS < -20] BORDERLINE eCG COMPARED TO ECG 07/12/2022 03:21:28 HEART RATE IS REDUCED, NO OTHER SIGNIFICANT DIFFERENCE Electronically Signed On 12-06-2022 17:37:03 CDT by Gustavo Villalobos M.D.
[2022-12-06 17:16] VITALS: PULSE 80; RESP 13; O2SAT 99
[2022-12-06 17:30] VITALS: PULSE 81; RESP 22; O2SAT 99
[2022-12-06 17:48] LABS: Basophils Absolute Auto 0.05 K/mm3 (0.00-0.10); Basophils Percent Auto 0.9 % (0.0-1.0); Eosinophils Absolute Auto 0.06 K/mm3 (0.02-0.50); Eosinophils Percent Auto 1.1 % (1.0-6.0); Hemoglobin 13.1 g/dL (12.0-15.0); Immature Granulocyte Absolute 0.02 K/mm3 (0.00-0.00); Immature Granulocyte Percent A 0.4 % (0.0-0.0); Lymphocytes Absolute Auto 1.57 K/mm3 (1.10-4.50); Lymphocytes Percent Auto 28.5 % (18.0-42.0); Mean Corpuscular HGB Conc 33.6 g/dL (32.0-36.0); Mean Corpuscular Hemoglobin 29.6 pg (27.0-31.0); Mean Corpuscular Volume 88.2 fL (78.0-102.0); Monocytes Absolute Auto 0.37 K/mm3 (0.10-0.90); Monocytes Percent Auto 6.7 % (2.0-11.0); Neutrophils Absolute Auto 3.4 K/mm3 (1.7-7.2); Neutrophils Percent Auto 62.4 % (50.0-70.0); Platelet Count Result 285 K/mm3 (150-420); Red Blood Count 4.42 M/mm3 (4.20-5.40); Red Cell Distribution Width 13.2 % (11.6-14.4); White Blood Count 5.5 K/mm3 (4.8-10.8)
[2022-12-06 18:03] LABS: Partial Thromboplastin Time 28.5 SEC (23.90-30.70); Prothrombin Time 11.1 Seconds (9.50-12.10)
[2022-12-06 18:04] LABS: Alanine Aminotransferase 19 U/L (14-59); Albumin Level 3.7 g/dL (3.4-5.0); Alkaline Phosphatase 73 U/L (46-116); Anion Gap 9 mmol/L (8-16); Aspartate Amino Transferase < 10 U/L (15-37); Bilirubin,Total 0.3 mg/dL (0.00-1.00); Blood Urea Nitrogen 13 mg/dL (7-18); Calcium 8.7 mg/dL (8.5-10.1); Carbon Dioxide 27 mmol/L (21-32); Chloride 104 mmol/L (98-108); Estimated Glomerular Filt Rate > 60; Glucose 84 mg/dL (70-99); Magnesium 2.2 mg/dL (1.8-2.4); Osmolality Calculated 289 mOsm/kg (285-295); Sodium 140 mmol/L (136-145); Total Protein 7.2 g/dL (6.4-8.2); Troponin I 4.6 ng/L (0.00-60.4)
[2022-12-06 18:16] VITALS: BP 122/90; PULSE 85; RESP 20; O2SAT 98
== END 2022-12-06 18:15 | disposition home or self-care (01) ==
PROVIDERS: Emergency Provider Emergency Medicine; PCP Family Medicine
DX: R07.89 Other chest pain (principal); I10 Essential (primary) hypertension; F17.290 Nicotine dependence, other tobacco product, uncomplicated
CPT/HCPCS: 36415; 71046; 80053; 83735; 84484; 85025; 85610; 85730; 93005; 99284

== ENCOUNTER 2023-02-09 05:12 | Emergency (ER) | payer OTHER, SELFPAY ==
[2023-02-09 05:13] VITALS: BP 136/84; PULSE 86; RESP 18; TEMP 36.8; O2SAT 98
--- NOTE | 2023-02-09 05:27 | ED.EAR ---
HPI - Ear Problem General Chief complaint: Ear Stated complaint: Right Ear Source: patient Mode of arrival: ambulatory Limitations: no limitations History of Present Illness HPI Narrative: 42-year-old female with a history of hypertension, anxiety, torticollis presents to the ER with-- -- right ear trauma while she was trying to clear her ears 1 hour ago. She noted blood while trying to clean her ear. -- Subsequently her hearing has been muffled through the right ear. -- Sinus congestion. Complaint: ear discharge ( Bloody discharge right ear) Location: right ear Duration: constant Severity: mild Relieving factors: nothing Exacerbating factors: nothing Discharge from ear: Reports yes - bloody Treatment prior to arrival: none Related Data Home Medications Medication Instructions Recorded Confirmed omeprazole 40 mg capsule,delayed 40 mg BID 12/26/21 02/09/23 release Maalox 10 ml PO BID 09/19/22 02/09/23 gabapentin 100 mg capsule 100 mg PO Q6-8H 09/19/22 02/09/23 multivitamin with iron 1 tablet PO DAILY 09/19/22 02/09/23 vortioxetine 10 mg tablet 10 mg PO DAILY 09/19/22 02/09/23 (Trintellix) Allergies Allergy/AdvReac Type Severity Reaction Status Date / Time acetaminophen Allergy Unknown Verified 09/19/22 19:50 [From Darvocet-N] amoxicillin [From Augmentin] Allergy Hives Verified 07/12/22 03:13 clavulanic acid Allergy Hives Verified 07/12/22 03:13 [From Augmentin] codeine Allergy Anxiety Verified 07/12/22 03:13 fentanyl Allergy Anxiety Verified 07/12/22 03:13 ketorolac Allergy Hives Verified 07/12/22 03:13 morphine Allergy Anxiety Verified 07/12/22 03:13 Penicillins Allergy Hives Verified 07/12/22 03:13 propoxyphene Allergy Unknown Verified 09/19/22 19:50 [From Darvocet-N] hydrocodone AdvReac Vomiting Verified 07/12/22 03:13 ibuprofen [From Motrin] AdvReac Other Verified 07/12/22 03:13 tramadol AdvReac Vomiting Verified 07/12/22 03:13 PROPOXYPHENE NAPSYLATE Allergy Mild Unknown Uncoded 03/20/22 11:14 Review of Systems Review of Systems: All systems reviewed & are unremarkable except as noted in HPI and below Constitutional: Constitutional: Reports as per HPI and Reports no additional constitutional complaints Eyes: Eyes: Reports as per HPI and Reports no additional eye complaints ENT: Reports system reviewed and no additional complaints, except as documented and Reports as per HPI Comments: bleeding right ear with mild pain. Cardiovascular: Cardiovascular: Reports as per HPI and Reports no additional cardiovascular complaints Respiratory: Respiratory: Reports as per HPI and Reports no additional respiratory complaints Gastrointestinal: Gastrointestinal: Reports as per HPI and Reports no additional gastrointestinal complaints Genitourinary: Genitourinary: Reports no additional female genitourinary complaints and Reports as per HPI Musculoskeletal: Musculoskeletal: Reports no additional musculoskeletal complaints and Reports as per HPI Integumentary/Breasts: Skin/Breast: Reports system reviewed and no additional complaints, except as docu and Reports as per HPI Neurologic: Reports system reviewed and no additional complaints, except as documented and Reports as per HPI Psychiatric: Psychiatric: Reports no additional psychiatric complaints and Reports as per HPI Endocrine: Endocrine: Reports no additional endocrine complaints and Reports as per HPI Hematologic/Lymphatic: Hematologic/Lymphatic: Reports no additional hematologic/lymphatic complaints and Reports as per HPI Allergic/Immunologic: Allergic/Immunologic: Reports no additional allergic/immunologic complaints and Reports as per HPI [facility] Past Medical History Medical History Chest pain Chronic GERD HTN (hypertension) Kidney stones Torticollis Social History Social History Tobacco type: e
== END 2023-02-09 05:57 | disposition home or self-care (01) ==
PROVIDERS: Emergency Provider Internal Medicine Critical Care Medicine; PCP Family Medicine
DX: H72.01 Central perforation of tympanic membrane, right ear (principal); I10 Essential (primary) hypertension; F17.290 Nicotine dependence, other tobacco product, uncomplicated
CPT/HCPCS: 99283

== ENCOUNTER 2023-02-10 03:12 | Emergency (ER) | payer OTHER, SELFPAY ==
[2023-02-10 03:13] VITALS: BP 146/91; PULSE 76; RESP 18; TEMP 36.8; O2SAT 100
--- NOTE | 2023-02-10 03:29 | ED.HA ---
HPI - Headache General Chief Complaint: Headache Stated Complaint: Headache/fever Source: patient Mode of arrival: ambulatory Limitations: no limitations History of Present Illness HPI Narrative: patient is a 42-year-old female with right ear pain. She was here last night and was told she had a ruptured tympanic membrane on the right and was given ear drops. She is here with worse pain in the right ear at this time. patient was using a pointed device in her right ear causing this trauma. MD elicited complaint: headache Pertinent past history: recent trauma ( Right ear) Onset (ago): day(s) (2) Onset description: suddenly Location: right Severity: moderate Pain scale (0-10): 6 Quality & Timing: sharp and progressively worsening Exacerbating factors: none Relieving factors: nothing Context: other ( Occurred while using a pointed device to clean out her ears) Associated symptoms: none Treatments prior to arrival: other ( prescription ear drops to the right ear) Related Data Home Medications Medication Instructions Recorded Confirmed omeprazole 40 mg capsule,delayed 40 mg BID 12/26/21 02/10/23 release multivitamin with iron 1 tablet PO DAILY 09/19/22 02/10/23 vortioxetine 10 mg tablet 10 mg PO DAILY 09/19/22 02/10/23 (Trintellix) gabapentin 400 mg capsule 400 mg PO TID 02/10/23 02/10/23 Allergies Allergy/AdvReac Type Severity Reaction Status Date / Time acetaminophen Allergy Unknown Verified 09/19/22 19:50 [From Darvocet-N] amoxicillin [From Augmentin] Allergy Hives Verified 07/12/22 03:13 clavulanic acid Allergy Hives Verified 07/12/22 03:13 [From Augmentin] codeine Allergy Anxiety Verified 07/12/22 03:13 fentanyl Allergy Anxiety Verified 07/12/22 03:13 ketorolac Allergy Hives Verified 07/12/22 03:13 morphine Allergy Anxiety Verified 07/12/22 03:13 Penicillins Allergy Hives Verified 07/12/22 03:13 propoxyphene Allergy Unknown Verified 09/19/22 19:50 [From Darvocet-N] hydrocodone AdvReac Vomiting Verified 07/12/22 03:13 ibuprofen [From Motrin] AdvReac Other Verified 07/12/22 03:13 tramadol AdvReac Vomiting Verified 07/12/22 03:13 PROPOXYPHENE NAPSYLATE Allergy Mild Unknown Uncoded 03/20/22 11:14 Review of Systems Review of Systems: All systems reviewed & are unremarkable except as noted in HPI and below Constitutional: Constitutional: Reports no additional constitutional complaints Eyes: Eyes: Reports no additional eye complaints ENT: Reports system reviewed and no additional complaints, except as documented Cardiovascular: Cardiovascular: Reports no additional cardiovascular complaints Respiratory: Respiratory: Reports no additional respiratory complaints Gastrointestinal: Gastrointestinal: Reports no additional gastrointestinal complaints Genitourinary: Genitourinary: Reports no additional female genitourinary complaints Musculoskeletal: Musculoskeletal: Reports no additional musculoskeletal complaints Integumentary/Breasts: Skin/Breast: Reports system reviewed and no additional complaints, except as docu Neurologic: Reports system reviewed and no additional complaints, except as documented Psychiatric: Psychiatric: Reports no additional psychiatric complaints Endocrine: Endocrine: Reports no additional endocrine complaints Hematologic/Lymphatic: Hematologic/Lymphatic: Reports no additional hematologic/lymphatic complaints Allergic/Immunologic: Allergic/Immunologic: Reports no additional allergic/immunologic complaints PMFSH Past Medical History Medical History Chest pain Chronic GERD HTN (hypertension) Kidney stones Torticollis Social History Social History Tobacco type: e-cigarettes/vaping Alcohol intake: never Substance use: never Living arrangements: with family Gender identity (if verbalized by the patient): Female Exam Const:
[2023-02-10] MEDS: CLINDAMYCIN HCL 150 MG CAP 300 MG PO (03:50)
[2023-02-10 03:56] VITALS: BP 126/81; PULSE 78; RESP 18; TEMP 37; O2SAT 100
== END 2023-02-10 03:59 | disposition home or self-care (01) ==
PROVIDERS: Emergency Provider Emergency Medicine; PCP Family Medicine
DX: H66.90 Otitis media, unspecified, unspecified ear (principal); H60.90 Unspecified otitis externa, unspecified ear; I10 Essential (primary) hypertension; F17.290 Nicotine dependence, other tobacco product, uncomplicated
CPT/HCPCS: 99283; A9270

== ENCOUNTER 2023-02-20 09:26 | Outpatient (CLI) | payer OTHER, SELFPAY ==
[2023-02-27 19:43] LABS: Calprotectin, Stool 77 mcg/g
== END 2023-02-20 09:27 | disposition home or self-care (01) ==
LOC: CHSLAB 09:29
PROVIDERS: PCP Family Medicine
DX: K58.0 Irritable bowel syndrome with diarrhea (principal); D50.9 Iron deficiency anemia, unspecified; R19.7 Diarrhea, unspecified
CPT/HCPCS: 83993

== ENCOUNTER 2023-04-07 02:31 | Emergency (ER) | payer OTHER, SELFPAY ==
--- NOTE | ~2023-04-07 | CT_ITS ---
EXAMINATION: CT abdomen pelvis wo con DATE: 04/07/2023 03:10 INDICATION: Vaginal bleeding posthysterectomy. TECHNIQUE: Computed tomography (CT) of the abdomen and pelvis was performed without intravenous contr ast. Automated exposure control and iterative reconstruction technique were employed. The dose-length product was 373.72 mGy-cm. COMPARISON: CT abdomen and pelvis 09/04/2021 FINDINGS: The visualized portions of the lung bases demonstrate mild atelectasis. No pleural effusion . The heart size is normal. No pericardial effusion. The liver and spleen are normal. There are marin es of cholecystectomy. The pancreas and adrenal glands are normal. There is mild atrophy of right kid lucas. There are approximately 6 stones in right kidney measuring up to 3 mm. There is a 4 mm stone in left kidney. There are no dilated loops of bowel. The appendix is normal. The uterus is absent. There are no pathologically enlarged lymph nodes. There is no ascites. There is mild thoracic and lumbar s pondylosis. IMPRESSION: 1. Bilateral nonobstructing kidney stones. Reviewed, dictated and finalized at [facility].
[2023-04-07 02:35] VITALS: BP 158/96; PULSE 107; RESP 18; TEMP 36.8; O2SAT 98
--- NOTE | 2023-04-07 02:45 | ED.FEMALEGU ---
HPI - Female Genitourinary General Chief complaint: Vaginal Bleeding Stated complaint: vaginal bleeding Time Seen by Provider: 04/07/23 02:43 Source: patient Mode of arrival: ambulatory Limitations: no limitations History of Present Illness HPI Narrative: patient is a 42-year-old female with a hysterectomy 2 weeks ago. She presents tonight with increased gush of bright red blood through the vagina and some lower pelvic cramping. She also passed a large blood clot Vaginally. She has been spotting up until this large bleeding event vaginally. MD elicited complaint: vaginal bleeding Pertinent past history: hysterectomy Onset (ago): hour(s) (1) Location of symptoms: suprapubic Severity: mild Female Urogenital Radiation: Suprapubic Severity scale (1-10): 3 Quality of pain: cramping Consistency: intermittent Vaginal discharge: none Vaginal bleeding: moderate, bright red and clots Exacerbating factors: none Relieving factors: none Associated symptoms: abdominal pain Treatment prior to arrival: none Sexual activity: Yes Patient : No Related Data Home Medications Medication Instructions Recorded Confirmed omeprazole 40 mg capsule,delayed 40 mg BID 12/26/21 04/07/23 release multivitamin with iron 1 tablet PO DAILY 09/19/22 04/07/23 vortioxetine 10 mg tablet 20 mg PO DAILY 09/19/22 04/07/23 (Trintellix) gabapentin 400 mg capsule 300 mg PO TID 02/10/23 04/07/23 aluminum-mag hydroxide-simethicone See Rx Instructions .Route 04/07/23 04/07/23 400 mg-400 mg-40 mg/5 mL oral susp .COMPLEX PRN Acid Reflux (Maalox Maximum Strength) ketorolac 10 mg tablet 10 mg PO PRN PRN Pain 04/07/23 04/07/23 mirtazapine 7.5 mg tablet 7.5 mg PO HS 04/07/23 04/07/23 Allergies Allergy/AdvReac Type Severity Reaction Status Date / Time acetaminophen Allergy Unknown Verified 04/07/23 03:02 [From Darvocet-N] amoxicillin [From Augmentin] Allergy Hives Verified 04/07/23 03:02 clavulanic acid Allergy Hives Verified 04/07/23 03:02 [From Augmentin] codeine Allergy Anxiety Verified 04/07/23 03:02 fentanyl Allergy Anxiety Verified 04/07/23 03:02 morphine Allergy Anxiety Verified 04/07/23 03:02 Penicillins Allergy Hives Verified 04/07/23 03:02 propoxyphene Allergy Unknown Verified 04/07/23 03:02 [From Darvocet-N] hydrocodone AdvReac Vomiting Verified 04/07/23 03:02 ibuprofen [From Motrin] AdvReac Other Verified 04/07/23 03:02 ketorolac AdvReac Hives Verified 04/07/23 03:02 tramadol AdvReac Vomiting Verified 04/07/23 03:02 PROPOXYPHENE NAPSYLATE Allergy Mild Unknown Uncoded 03/20/22 11:14 Review of Systems Review of Systems: All systems reviewed & are unremarkable except as noted in HPI and below Constitutional: Constitutional: Reports no additional constitutional complaints Eyes: Eyes: Reports no additional eye complaints ENT: Reports system reviewed and no additional complaints, except as documented Cardiovascular: Cardiovascular: Reports no additional cardiovascular complaints Respiratory: Respiratory: Reports no additional respiratory complaints Gastrointestinal: Gastrointestinal: Reports no additional gastrointestinal complaints Genitourinary: Genitourinary: Reports no additional female genitourinary complaints Musculoskeletal: Musculoskeletal: Reports no additional musculoskeletal complaints Integumentary/Breasts: Skin/Breast: Reports system reviewed and no additional complaints, except as docu Neurologic: Reports system reviewed and no additional complaints, except as documented Psychiatric: Psychiatric: Reports no additional psychiatric complaints Endocrine: Endocrine: Reports no additional endocrine complaints Hematologic/Lymphatic: Hematologic/Lymphatic: Reports no additional hematologic/lymphatic complaints Allergic/Immunologic: Allergic/Immunologic: Reports no additional allergic/immunologic complaints [facility] Past Medical History Medical History (Reviewed 04/07/23 @ 02:56 by Denys Morales
[2023-04-07 03:32] LABS: Basophils Percent Auto 1.4 % (0.0-1.0); Eosinophils Absolute Auto 0.19 K/mm3 (0.02-0.50); Eosinophils Percent Auto 2.7 % (1.0-6.0); Hemoglobin 13.3 g/dL (12.0-15.0); Immature Granulocyte Absolute 0.03 K/mm3 (0.00-0.00); Immature Granulocyte Percent A 0.4 % (0.0-0.0); Lymphocytes Absolute Auto 2.67 K/mm3 (1.10-4.50); Lymphocytes Percent Auto 37.7 % (18.0-42.0); Mean Corpuscular HGB Conc 33.3 g/dL (32.0-36.0); Mean Corpuscular Hemoglobin 30.4 pg (27.0-31.0); Mean Corpuscular Volume 91.3 fL (78.0-102.0); Mean Platelet Volume 9.6 fl (9.2-11.8); Monocytes Absolute Auto 0.52 K/mm3 (0.10-0.90); Monocytes Percent Auto 7.3 % (2.0-11.0); Neutrophils Absolute Auto 3.6 K/mm3 (1.7-7.2); Neutrophils Percent Auto 50.5 % (50.0-70.0); Platelet Count Result 282 K/mm3 (150-420); Red Blood Count 4.38 M/mm3 (4.20-5.40); Red Cell Distribution Width 12.4 % (11.6-14.4); White Blood Count 7.1 K/mm3 (4.8-10.8)
[2023-04-07 03:45] LABS: INR 0.9; Partial Thromboplastin Time 27.6 SEC (23.90-30.70); Prothrombin Time 10.3 Seconds (9.50-12.10)
[2023-04-07 03:46] LABS: Alanine Aminotransferase 25 U/L (14-59); Albumin Level 3.3 g/dL (3.4-5.0); Alkaline Phosphatase 86 U/L (46-116); Anion Gap 9 mmol/L (8-16); Aspartate Amino Transferase 13 U/L (15-37); Bilirubin,Total 0.2 mg/dL (0.00-1.00); Blood Urea Nitrogen 10 mg/dL (7-18); Calcium 8.6 mg/dL (8.5-10.1); Carbon Dioxide 27 mmol/L (21-32); Chloride 105 mmol/L (98-108); Estimated CRCL calculation 59 ml/min; Estimated Glomerular Filt Rate > 60; Glucose 86 mg/dL (70-99); Osmolality Calculated 290 mOsm/kg (285-295); Potassium 3.5 mmol/L (3.5-5.1); Sodium 141 mmol/L (136-145); Total Protein 6.6 g/dL (6.4-8.2)
[2023-04-07 04:33] VITALS: BP 139/98; PULSE 106; RESP 18; TEMP 36.9; O2SAT 98
[2023-04-07] MEDS: SILVER NITRATE (*SP) STICK 3 EACH TOPICAL (04:56)
[2023-04-07 06:15] VITALS: BP 129/99; PULSE 93; RESP 16; TEMP 37; O2SAT 97
== END 2023-04-07 06:16 | disposition home or self-care (01) ==
PROVIDERS: Emergency Provider Emergency Medicine; PCP Family Medicine
DX: N93.9 Abnormal uterine and vaginal bleeding, unspecified (principal); I10 Essential (primary) hypertension; F17.290 Nicotine dependence, other tobacco product, uncomplicated; Z79.899 Other long term (current) drug therapy
CPT/HCPCS: 12001; 36415; 74176; 80053; 85025; 85610; 85730; 99283

== ENCOUNTER 2023-04-14 08:00 | Outpatient (CLI) | payer OTHER, SELFPAY ==
[2023-04-14 08:16] LABS: Basophils Absolute Auto 0.05 K/mm3 (0.00-0.10); Basophils Percent Auto 0.6 % (0.0-1.0); Eosinophils Absolute Auto 0.09 K/mm3 (0.02-0.50); Hematocrit 39.1 % (35.0-49.0); Hemoglobin 12.9 g/dL (12.0-15.0); Immature Granulocyte Absolute 0.04 K/mm3 (0.00-0.00); Immature Granulocyte Percent A 0.5 % (0.0-0.0); Lymphocytes Percent Auto 18.2 % (18.0-42.0); Mean Corpuscular Volume 90.9 fL (78.0-102.0); Mean Platelet Volume 9.4 fl (9.2-11.8); Monocytes Absolute Auto 0.48 K/mm3 (0.10-0.90); Monocytes Percent Auto 5.5 % (2.0-11.0); Neutrophils Absolute Auto 6.5 K/mm3 (1.7-7.2); Neutrophils Percent Auto 74.2 % (50.0-70.0); Platelet Count Result 284 K/mm3 (150-420); Red Cell Distribution Width 12.4 % (11.6-14.4); White Blood Count 8.8 K/mm3 (4.8-10.8)
[2023-04-14 08:46] LABS: Iron 128 ug/dL (50-170); Percent Iron Saturation 35 % (12-57)
== END 2023-04-14 08:01 | disposition home or self-care (01) ==
LOC: CHSLAB 08:03
PROVIDERS: PCP Family Medicine
DX: D50.9 Iron deficiency anemia, unspecified (principal); R19.7 Diarrhea, unspecified
CPT/HCPCS: 36415; 83540; 83550; 85025

== ENCOUNTER 2023-04-25 12:44 | Outpatient (CLI) | payer OTHER, SELFPAY ==
--- NOTE | ~2023-04-25 | XR_ITS ---
Left foot Technique: AP, oblique, and lateral views were obtained. Clinical History: Pain Findings: No acute fracture or dislocation is seen. Osseous alignment is anatomic. Joint spaces are p reserved without erosive or degenerative change. Soft tissues are unremarkable. Impression: Unremarkable left foot radiographs. Reviewed, dictated and finalized at location . [facility] Impression: Unremarkable left foot radiographs.
== END 2023-04-25 12:45 | disposition home or self-care (01) ==
LOC: CHSIMG 12:47
PROVIDERS: PCP Family Medicine; Visit Provider Family Medicine
DX: M79.672 Pain in left foot (principal)
CPT/HCPCS: 73630

== ENCOUNTER 2024-02-29 14:27 | Emergency (ER) | payer OTHER, SELFPAY ==
--- NOTE | ~2024-02-29 | CT_ITS ---
EXAMINATION: CT abdomen pelvis wo con DATE: 02/29/2024 15:09 INDICATION: Left lower quadrant abdominal pain, low back pain for one day TECHNIQUE: Computed tomography (CT) of the abdomen and pelvis was performed without intravenous contr ast. Automated exposure control and iterative reconstruction technique were employed. Exam dose: 328 .83 mGy-cm total exam DLP. COMPARISON: 04/07/2023 CT abdomen pelvis FINDINGS: The lung bases are clear. Normal heart size. No pericardial or pleural effusion. Status post cholecystectomy. The liver, spleen, pancreas, bile ducts and pancreatic duct are unremarkable. Normal morphology of the adrenal glands. There is scarring and volume loss of the right kidney most consistent with chronic pyelonephritis. Mu ltiple small right renal nonobstructing calculi are noted. Approximately 4.6 x 6.8 mm nonobstructing lower pole left renal calculus. No ureteral calculus or hydroureteronephrosis is evident. The urinary bladder is unremarkable. Status post hysterectomy. Normal caliber of the abdominal aorta. No intraperitoneal or retroperitoneal or pelvic mass lesion or adenopathy or ascites is detected. Normal appendix. No bowel obstruction or intraperitoneal free air. Small fat-containing umbilical hernia. No suspicious osteolytic or osteoblastic lesions. IMPRESSION: Bilateral nonobstructive nephrolithiasis Chronic pyelonephritis of the right kidney Normal appendix Status post cholecystectomy Status post hysterectomy Reviewed, dictated and finalized at [facility]. Reviewed, dictated and finalized at location [facility].
[2024-02-29 14:28] VITALS: BP 159/109; PULSE 107; RESP 18; TEMP 36.5; O2SAT 99
--- NOTE | 2024-02-29 14:31 | ED.GENADULT ---
HPI - General Adult General Chief complaint: Abdominal Pain Stated complaint: stomach pain Time Seen by Provider: 02/29/24 14:31 History of Present Illness HPI narrative: 43-year-old white female with history of fibromyalgia kidney stones colitis and irritable bowel syndrome presents to the emergency room complaining of low left back pain it started last night radiating around her abdomen today not associated with any problems eating or drinking voiding or stooling fever. She has had hysterectomy cholecystectomy. She thinks she is having a fibromyalgia flare like she had 2 months ago. Only then she would go to the emergency department. Her pain is usually a 2/10 today it is 7 to 8/10 severe left lower back and lower abdomen her arms and shoulders and back feels stiff in heavy. She is on gabapentin 600. She has been out of her Ativan for 4 days and she has takes Flexeril for fibromyalgia flare. Denies any problems voiding. Denies any nausea vomiting or diarrhea bleeding or bruising dizziness or lightheadedness rash or itching swelling lumps or bumps. She has had a little bit of a cough no sore throat she is just getting over a sinus infection for which she just got Bactrim. Denies any other complaints. Allergies penicillin Augmentin tramadol Toradol fentanyl PCP is Dr. Grant Social history she works for [employer] at [employer]. She vapes, but denied alcohol and drugs. Related Data Home Medications Medication Instructions Recorded Confirmed omeprazole 40 mg capsule,delayed 40 mg BID 12/26/21 04/07/23 release multivitamin with iron 1 tablet PO DAILY 09/19/22 04/07/23 vortioxetine 10 mg tablet 20 mg PO DAILY 09/19/22 04/07/23 (Trintellix) gabapentin 400 mg capsule 300 mg PO TID 02/10/23 04/07/23 aluminum-mag hydroxide-simethicone See Rx Instructions .Route 04/07/23 04/07/23 400 mg-400 mg-40 mg/5 mL oral susp .COMPLEX PRN Acid Reflux (Maalox Maximum Strength) ketorolac 10 mg tablet 10 mg PO PRN PRN Pain 04/07/23 04/07/23 mirtazapine 7.5 mg tablet 7.5 mg PO HS 04/07/23 04/07/23 Allergies Allergy/AdvReac Type Severity Reaction Status Date / Time acetaminophen Allergy Unknown Verified 04/07/23 03:02 [From Darvocet-N] amoxicillin [From Augmentin] Allergy Hives Verified 04/07/23 03:02 clavulanic acid Allergy Hives Verified 04/07/23 03:02 [From Augmentin] codeine Allergy Anxiety Verified 04/07/23 03:02 fentanyl Allergy Anxiety Verified 04/07/23 03:02 morphine Allergy Anxiety Verified 04/07/23 03:02 Penicillins Allergy Hives Verified 04/07/23 03:02 propoxyphene Allergy Unknown Verified 04/07/23 03:02 [From Darvocet-N] hydrocodone AdvReac Vomiting Verified 04/07/23 03:02 ibuprofen [From Motrin] AdvReac Other Verified 04/07/23 03:02 ketorolac AdvReac Hives Verified 04/07/23 03:02 tramadol AdvReac Vomiting Verified 04/07/23 03:02 Review of Systems Review of Systems: All systems reviewed & are unremarkable except as noted in HPI and below PMFSH Past Medical History Medical History Chest pain Chronic GERD HTN (hypertension) Kidney stones Torticollis Social History Social History Tobacco type: e-cigarettes/vaping Alcohol intake: never Substance use: never Living arrangements: with family Gender identity (if verbalized by the patient): Female Exam Narrative: White female patient with mild distress. blood pressure 159/109 pulse 107. Her vital signs are normal.? Head normocephalic, atraumatic.? Eyes conjunctiva pink sclera nonicteric.? Extraocular movements are intact.? Ears externally normal.? Oropharynx is clear with moist mucous membranes without exudates.? Neck is supple nontender no lymphadenopathy.? Back is mildly tender lower back negative straight leg raise..? Lungs are clear.? Heart is regular rate and rhythm without murmurs gallops or rubs.
[2024-02-29 14:50] LABS: Add Urine Microscopic? NO; Appearance Urine Clear (Clear); Bilirubin Urine Negative (Negative); Blood Urine Trace-intact (Negative); Color Urine Light Yellow (Yellow); Glucose Urine UA Negative (Negative); Ketones Urine Negative (Negative); Leukocyte Esterase Ur Negative LEU/UL (Negative); Nitrate Urine Negative (Negative); Protein Urine Negative (Negative); Specific Grav Ur 1.015 (1.010-1.020); Urobilinogen Urine 0.2 mg/dL (0.2-1.0)
[2024-02-29 15:06] LABS: Hematocrit 41.5 % (35.0-49.0); Hemoglobin 13.9 g/dL (12.0-15.0); Mean Corpuscular HGB Conc 33.5 g/dL (32-36); Mean Corpuscular Hemoglobin 29.8 pg (27.0-31.0); Mean Corpuscular Volume 89.1 fL (78.0-102.0); Mean Platelet Volume 9.7 fl (9.2-11.8); Platelet Count Result 294 K/mm3 (150-420); Red Blood Count 4.66 M/mm3 (4.20-5.40); Red Cell Distribution Width 12.2 % (11.6-14.4); White Blood Count 5.3 K/mm3 (4.8-10.8)
[2024-02-29] MEDS: HYDROcodone/acetaminophen (*CRX) 5-325 MG TABLET 1 TAB PO (15:10)
[2024-02-29 15:22] LABS: Alanine Aminotransferase 20 U/L (14-59); Albumin Level 3.8 g/dL (3.4-5.0); Alkaline Phosphatase 86 U/L (46-116); Anion Gap 10 mmol/L (4-12); Aspartate Amino Transferase 14 U/L (15-37); Bilirubin,Total 0.7 mg/dL (0.00-1.00); Blood Urea Nitrogen 9 mg/dL (7-18); Calcium 8.4 mg/dL (8.5-10.1); Carbon Dioxide 26 mmol/L (21-32); Chloride 104 mmol/L (98-108); Estimated CRCL calculation 65 ml/min; Estimated Glomerular Filt Rate > 60; Glucose 84 mg/dL (70-99); Lipase 26 U/L (16-77); Osmolality Calculated 287 mOsm/kg (285-295); Potassium 3.5 mmol/L (3.5-5.1); Sodium 140 mmol/L (136-145); Total Protein 7.1 g/dL (6.4-8.2)
[2024-02-29 15:32] VITALS: BP 151/98; PULSE 85; RESP 18; TEMP 36.5; O2SAT 96
== END 2024-02-29 15:57 | disposition home or self-care (01) ==
PROVIDERS: Emergency Provider Emergency Medicine; PCP Family Medicine
DX: M79.7 Fibromyalgia (principal); N20.0 Calculus of kidney; N11.9 Chronic tubulo-interstitial nephritis, unspecified; I10 Essential (primary) hypertension; F17.290 Nicotine dependence, other tobacco product, uncomplicated; Z79.899 Other long term (current) drug therapy
CPT/HCPCS: 36415; 74176; 80053; 81003; 83690; 85027; 99284; A9270

== ENCOUNTER 2024-09-04 21:30 | Emergency (ER) | payer OTHER, SELFPAY ==
[2024-09-04] VITALS (16 sets, daily range): BP systolic 170–209; BP diastolic 103–124; PULSE 84; RESP 18; TEMP 36.3; O2SAT 86–100
--- NOTE | ~2024-09-04 | CT_ITS ---
CLINICAL INDICATION: Left flank pain COMPARISON: 02/29/2024. TECHNIQUE: Multiple contiguous axial images of the abdomen and pelvis were performed without the admi nistration of intravenous contrast The dose-length product (DLP) was 497.99 mGy-cm. Automated exposure control and iterative reconstruction technique were employed. FINDINGS/OBSERVATIONS: Visualized lower thorax: The bilateral lung bases are clear. The heart is of normal size, without pericardial effusion. Small hiatal hernia is present. Liver: The liver demonstrates homogeneous attenuation and is not enlarged. Gallbladder and biliary system: The gallbladder is surgically absent. Pancreas: Limited evaluation of the pancreas secondary to the lack of intravenous contrast. Spleen: The spleen demonstrates homogeneous attenuation and is not enlarged. Kidneys: Global enlargement of the left kidney with moderate hydroureteronephrosis extending to the mid left u reter where a 6.3 mm calculus is identified. 5 mm nonobstructing calculus within the anterior lower pole of the right kidney. 3 mm nonobstructing stone within the posterior lower pole of the right kidney. 3 mm nonobstructing stone within the interpolar region of the right kidney Adrenal glands: Unremarkable. Gastrointestinal tract: Colonic diverticulosis without surrounding inflammatory change. Fecal stasis within the colon. Appendix: The air-filled appendix is of normal caliber (axial series, images 110 through 120) Vasculature: Densely calcified atherosclerotic disease, more than one would expect in a patient of this age. Lymph nodes: Limited evaluation without intravenous contrast. Pelvic structures: The bladder is only minimally distended, and otherwise unremarkable. The uterus is surgically absent. Body wall and musculoskeletal: Small fat-containing umbilical hernia. No significant degenerative disease within the lower thoracic or lumbosacral spine. IMPRESSION: Moderate left-sided hydroureteronephrosis secondary to a 0.3 mm calculus within the mid left ureter. Reviewed, dictated and finalized at location A.
--- OUTSIDE RECORDS SUMMARY | 2024-09-04 21:34 | XMS_ITS ---
Author Organization Unknown Address [address] [place] [address] [phone] Phone Care Team Providers Care Supplemental Nurse Name Role Phone HORTENSIARONALD STEFANO BARNETTP Attending Unavailable MARK Singh Primary Unavailable Immunization Immunization Date Status Additional Notes Code Code System Tdap 06/09/2016 Completed 115 CVX Influenza, split virus, quadrivalent, PF 05/30/2020 Completed 150 CVX Influenza, split virus, quadrivalent, PF 03/10/2023 Completed 150 CVX COVID-19, mRNA, LNP-S, PF, 3 0 mcg/0.3 mL dose 12/07/2020 Completed 208 CVX COVID-19, mRNA, LNP-S, PF, 3 0 mcg/0.3 mL dose 12/28/2020 Completed 208 CVX Social History Type Status Start Date End Date Code Code Syst em Smoking History Former smoker [id number] SNOMED CT Sex Female Assessment You had the following problems:ENCOUNTER FOR SCREENING FOR MALIGNANT NEOPLASM OF CERVIX Hospital Discharge Instructions Should you have any questions prior to discharge, please contact a member of your healthcare team. If you have left the hospital and have any questions, please contact your primary care physician. Reason For Referral No Data Found Problems Problem Start Date Resolved Date Status Code Code System ENCOUNTER FOR SCREENING FOR MALIGNANT NEOPLASM OF CERVIX active 108444206 SNOMED-CT Plan of Treatment Split Night, CPAP/BIPAP/ASV (99686) Encounters Encounter Diagnosis Start Date Code Code Sys tem Sleep apnea 04/28/2023 55809987 SNOMED-CT Personal Care Team Section Performer Name Performer Role Active Date Inactive Da te DEEP FLORES PCP - Primary care physician 2022-09-10 DEEP FLORES PCP - Primary care physician 2022-09-10
--- OUTSIDE RECORDS SUMMARY | 2024-09-04 21:35 | XMS_ITS | Data Portability ---
Author Organization [facility], [id number] Address [address] [place] [address] Assessment No assessment recorded. Plan of Treatment Reminders Order Date Submit Date Provider Last Modified By Organization Details Last Modified Time Details Appointments TALK 30 2024 10:15A M PREETHI STILES MD Not available Not available Not available Lab None recorde d. Referral None recorde d. Procedures None recorde d. Surgeries None recorde d. Imaging US, pelvis, transab dominal + transva ginal [facility]24 [facility] [address], [place], [address], 09/01/2024 11:55:48 Medication Orders None recorde d. Patient TargetsNo targets recorded. Patient InstructionsNo instructions recorded. Reason for Referral None Reported. Problems Name Problem SNOMED Code Status Onset Date Resolution Date Notes Provider Name and Address Organization Details Recorded Time Polycystic ovary syndrome 405581990 Active 2024 STEVE JARQUIN [address], [place], [place], [address] , [facility] 11:13:51 Endometriosis (clinical) 163558233 Active 2024 STEVE JARQUIN [address], [place], [place], [address] , [facility] 11:13:44 Fibromyalgia 791484548 Active 2024 STEVE JARQUIN [address], [place], [place], [address], [place] - [facility] 5 11:13:46 Depressive disorder 67279095 Active 2024 STEVE JARQUIN [address], [place], [place], [address], [place] - [facility] 5 11:13:42 Anxiety 24975746 Active 2024 STEVE JARQUIN [address], [place], [place], [address], [place] - [facility] 5 11:13:40 Irritable bowel syndrome 39777668 Active 2024 STEVE JARQUIN [address], [place], [place], [address], [place] - [facility] 5 11:13:47 Pain in pelvis 83248824 Active 2024 STEVE JARQUIN [address], [place], [place], [address], [place] - [facility] 5 11:13:49 Problem Notes None recorded. Procedures Surgical History Date Name Laterality Status Provider Name and Address Organization Details Recorded Time 07/19/19 24 Date of Last Mammogram completed Abby Shady [place] - [facility] 08/24/2024 10:23:41 02/15/20 23 Date of Last Colonoscopy completed Crystal Shady [place] - [facility] 08/24/2024 10:23:41 11/14/19 23 Date of Last Pap Smear completed Abby Shady [place] - [facility] 08/24/2024 10:23:41 Hysteroscopy completed Crystal Sh[place] - [facility] 08/24/2024 10:23:52 Endometrial Biopsy completed Abby Shady [place] - [facility] 08/24/2024 10:23:52 Total Hysterectomy completed Crystal Shady [place] - [facility] 08/24/2024 10:32:18 Colonoscopy completed Abby Caruso [place] - [facility] 08/24/2024 10:23:52 Imaging Results None recorded. Procedure Notes None recorded. Medical Equipment None Reported. Allergies Allergen ID Allergen Name Allergen Category Reaction Reaction Severity Criticality Documentation Date Start Date Code Code System Note Provider Name and Address Organization Details Recorded Time 295747 Product containin g penicilli n (product) medicatio n Not available Not available Not available 08/24/2024 91516 8001 SNOMED Abby Caruso [facility], [facility] 5 10:23:35 898369 morphine medicatio n Not available Not available Not available 08/24/2024 7052 RxNorm Abby Caruso [facility], [facility] 5 10:23:35 542993 azithromy [place] medicatio n Not available Not available Not available 08/24/2024 92834 RxNorm Abby Caruso null, [facility] 5 10:23:35 409992 amoxicill in medicatio n Not available Not available Not available 08/24/2024 723 RxNorm Abby Caruso null, [place] - [facility] 5 10:23:35 Medications Name Sig Start Date Stop Date Status Note LastModified by Organization Details LastModified Time cyclobenzapr ine 10 mg tablet 08/24 completed Not Available Not Available Not Available gabapentin 600 mg tablet active Not Available Not Available Not Available azithromycin 250 mg tablet 08/24 completed Not Available Not Available Not Available fluconazole 150 mg tablet 08/24 completed Not Available Not Available Not Available hydrocodone 5 mg-acetamino phen 325 mg tablet active Not Available Not Available Not Available Claritin 10 mg tablet Take 1 tablet every day by oral route. active Not Available Not Available No t Available gabapentin 400 mg capsule 08/24 completed Not Available Not Available Not Available metronidazol e 500 mg tablet 08/24 completed Not Available Not Available Not Available sulfamethoxa zole 800 mg-trimethop rim 160 mg tablet 08/24 completed Not Available Not Available Not Available omeprazole 40 mg capsule,cliff yed release active Not Available Not Available Not Available lorazepam 0.5 mg tablet active Not Available Not Available Not Available cephalexin 500 mg capsule TAKE 1 CAPSULE BY MOUTH TWICE DAILY FOR 7 DAYS 08/24 completed Not Available Not Available Not Available hyoscyamine sulfate 0.125 mg tablet Take 1 tablet every 4 hours by oral route. active Not Available Not Available No t Available gabapentin 300 mg capsule 08/24 completed Not Available Not Available Not Available ergocalcifer ol (vitamin D2) 1,250 mcg (50,000 unit) capsule active Not Available Not Available Not Available methylpredni solone 4 mg tablets in a dose pack 08/24 completed Not Available Not Available Not Available cyclobenzapr ine 5 mg tablet active Not Available Not Available Not Available nitrofuranto in monohydrate/ macrocrystal s 100 mg capsule 08/24 completed Not Available Not Available Not Available Trintellix 10 mg tablet active Not Available Not Available Not Available Vitals Date Recorded Body height Body mass index (BMI) Body weight Systolic blood pressure Diastolic blood pressure Provider Name and Address Organization Details Last Updated DateTime 08/24/2024 152.4 cm 31.6 kg/m2 26574.25 g 148 mm[Hg] 96 mm[Hg] Abby Caruso [facility] 10:23:31 Social History Question Answer Notes LastModified by Organizat ion Details LastModified Time Tobacco Smoking Status Current Every Day Smoker [id number]-[id number] rettes Abby Caruso [facility] 08/24/2024 10:31:45 Do You Have An Advance Directive? No [email or web address] Information not available 08/24/2024 What Is Your Level Of Alcohol Consumption? None [email or web address] Information not available 08/24/2024 If You Are , What Was Your Level Of Alcohol Consumption Prior To ? None [email or web address] Information not available 08/24/2024 What Is Your Level Of Caffeine Consumption? None [email or web address] Information not available 08/24/2024 Are You Currently Employed? Yes [email or web address] Information not available 08/24/2024 What Type Of Diet Are You Following? 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 [email or web address] Information not available 08/24/2024 Do You Use Any Illicit Or Recreational Drugs? No [email or web address] Information not available 08/24/2024 Sex: Unknown Functional Status None recorded. Mental Status None recorded. Family History Relationship Description Onset Age of this Age Resolved Age Notes LastModified by Organization Details LastModified Time Father Hypercholest erolemia [email or web address] Not available 08/24 10:23:38 Father Anxiety disorder [email or web address] Not available 08/24 10:23:38 Father Depressive disorder [email or web address] Not available 08/24 10:23:38 Mother Hypercholest erolemia [email or web address] Not available 08/24 10:23:38 Mother Anxiety disorder [email or web address] Not available 08/24 10:23:38 Mother Myocardial infarction Not available 08/07 10:23:38 Mother Cerebrovascu lar accident [email or web address] Not available 10:23:38 Mother Depressive disorder [email or web address] Not available 08/24 10:23:38 Mother Heart disease Not available 08/24 10:23:38 Maternal Grandmother Myocardial infarction [email or web address] Not available 08/07 10:23:38 Maternal Grandmother Heart disease [email or web address] Not available 08/24 10:23:38 Maternal Grandmother Osteoporosis [email or web address] Not availabl e 08/24/2024 10:23:38 Sister Hypercholest erolemia [email or web address] Not available 08/24 10:23:38 Sister Myocardial infarction [email or web address] Not available 08/07 10:23:38 Sister Cerebrovascu lar accident [email or web address] Not available 10:23:38 Sister Hyperthyroid ism Not available 08/24 10:23:38 Sister Depressive disorder [email or web address] Not available 08/24 10:23:38 Sister High risk [email or web address] Not available 08/24 10:23:38 Sister Heart disease [email or web address] Not available 08/24 10:23:38 Sister Family history of Viktoria thyroiditis [email or web address] Not available 10:30:54 Sister Family history of malignant neoplasm of thyroid Not available 08/24 10:31:05 Maternal Grandfather Depressive disorder [email or web address] Not available 08/24 10:23:38 Paternal Grandfather Depressive disorder Not available 08/24 10:23:38 Medical History Condition Response Endocrinology-Other Y GI- Hemorrhoids Y Psych- Depression Y GI- Irritable Bowel Syndrome Y Urology- Stones Y GI- Colon Polyps Y Psych- Anxiety Disorder Y GI- Reflux/Ulcers Y GI- Gallbladder Disease Y Gynecological History Statement/Question Response History of PCOS Y Date of Last Mammogram 07/19/2023 History of Fibroids Y History of Infertility N History of Vulvar Dysplasia N History of Cervical Dysplasia N History of Recurrent Ovarian Cysts Y Cologuard Testing N Age at first intercourse 18 History of Endometriosis Y Date of Last Colonoscopy 02/14/2023 Sexually Active? Y History of Dysmenorrhea N Menses Monthly N Date of Last Diabetes Screening 05/13/50 26 Date of Last Pap Smear 11/13/2022 Sexual Problems? N History of Sexually Transmitted Infectio n N Date of Last Cholesterol Screening 05/13 Obstetrics History GPAL:G 5 P 4 1 0 4 Type Value Full Term 4 Premature 1 Living 4 Total 5 Past Encounters Encounter ID Performer Location Encounter Start Date Encounter Closed Date Diagnosis/Indication Diagnosis SNOMED-CT Code Diagnosis ICD10 Code Diagnosis Note [id number] STEVE [facility] [id number] [facility] [address] [place] [address] 08/24/2024 09:46:20 08/24/2024 11:02:47 Pain in pelvis 05912143 R10.2 -have US done-we will contact you with results-f/ u with physician to discuss POC Health Concerns Section Related Observation LastModified by Organization Detai ls LastModified Time None Recorded Concern Status LastModified by Organization Details LastModified Time None Recorded Advance Directives Directive N: Payers Encounter Date Sequence Insurance Name Policy Number Policy [place] Covered Member ID [place] Member ID Guarantor Name 08/24/2024 1 [employer] [facility] ON OR AFTER 05/09/2020 (MEDICAID REPLACEMENT - HMO) Alice Kwandewey [id number] Alicesharif Kwandewey Notes Date Note Type Note Provider Name and Address Organization Details Recorded Time 08/24/2024 text/html Abdominal/Pelvic Pain ([facility])Reported bypatient.Patient Relationship To Practice:new patient * Location:suprapubic * Quality:sharp; fullness/bloating * Severity:severe; impacts daily living * Duration:3 months * Timing:constant (waxing and waning) * Context:history of endometriosis; history of gynecological surgeries * Modifying Factors:worse with bowel movement; worse with intercourse; worse with movement/exercise * Associated Signs & Symptoms:no associated urinary symptoms; no fevers or chills;constipation ; bloatingNotes:hx of hysterectomy in 2022 with CHD for endometriosis, adenomyosis. started having pelvic pain again in Jun. states she had intercourse with her and had severe pain and hematuria for 2 days-saw PCP and was evaluated for UTI/renal stones-was cleared of both. also having constipation/diarrh ea/bloating/gassy. has more severe pain prior to and with BM-no blood in stool. c/o 10lb weight gain in the last month. last colonoscopy was in 2022 prior to hysterectomy and showed some inflammation per pt was GI specialist told her it was from her female issues. all her sx resolved after hysterectomy. also has hx of PCOS-still has ovaries. was offered Orlissa for endometriosis pain and ozempic for PCOS per pt but insurance wouldn't cover them. wanting to have endometriosis cleaned out again. -[facility] Patient is here for consult. Patient states she had a hysterectomy in March 2023. Patient had previously been diagnosed with PCOS, endometriosis and adenomyosis. Patient states about one month ago she had intercourse and afterwards she peed blood for about 2 days. Patient also states she gets breast tenderness about once monthly, and she is having bowel issues like when she had her endometriosis. She states she is either constipated or she cannot stop having bowel movements. She states she gets very sharp pains when having bowel movements. She also complains of pelvic pain. STEVE JARQUIN [address] [facility] [address], [place], [address], [facility] 08/24/2024 11:15:26 OBGyn Episode No OBEpisode recorded.
[2024-09-04] MEDS: SODIUM CHLORIDE 0.9% IV 1,000 ML 150 ML IV CONT (21:57)
[2024-09-04] MEDS: HYDROmorphone HCL INJ (*CRX) 2 MG/ML VIAL 1 MG IV PUSH ×2 (21:57→22:41)
--- OUTSIDE RECORDS SUMMARY | 2024-09-04 22:06 | XMS_ITS | Encounter Summary ---
Author Organization [facility] - [facility] Address [facility] [place] [address] Care Team Providers Care Out Of Town Collection Clerk Name Role Phone Gray Brock MD Primary Care Provider Ruben Mg MD Unavailable Unavailable Lincoln Evans MD Unavailable [phone] Reilly Grant MD Primary Care Provider Mónica Gaffney MD Unavailable Encounter Details Date Type Department Care Team (Late st Contact Info) Description 03/27/2021 [employer] [facility] Patient Accounts [address] [place] [address] [employer] Provider Financial Assistance Application Social History Tobacco Use Types Packs/Day Years Used Date Smoking Tobacco: Every Day Electronic Cigarettes Smokeless Tobacco: Never Comments:smokes ecigs Alcohol Use Standard Drinks/Week Comments No 0 (1 standard drink = 0.6 oz pur e alcohol) AUDIT-C Answer Date Recorded Frequency of Alcohol Consumption Never 12/11/2018 Average Number of Drinks Not on file 019 Frequency of Binge Drinking Not on file 10/2018 Comments No Sex and Gender Information Value Date Recorded Sex Assigned at Female 07/07/2024 3:15 PM MANAGER ENGAGEMENT Legal Sex Female 5:45 PM MANAGER ENGAGEMENT Gender Identity Female 07/10/2021 6:40 AM MANAGER ENGAGEMENT Sexual Orientation Not on file Occupation Industry Job Start Date Job End Date Not on file Not on file Not on file Not on file COVID-19 Exposure Response Date Recorded In the last month, have you been in contact with someone who was confirmed or suspected to have Coronavirus / COVID-19? No / Unsure 03/25/2021 3:18 PM CDT documented as of this encounter Functional Status * RETIRED Are you deaf or do you have serious difficulty hearing Answer Date of Assessment Author Status Yes 12/18/2018 9:00 AM CDT Activ e * RETIRED Are you blind or do you have serious difficulty seeing, even when wearing glasses? Answer Date of Assessment Author Status No 12/18/2018 9:00 AM CDT Activ e * Do you have serious difficulty walking or climbing stairs? Answer Date of Assessment Author Status No 12/18/2018 9:00 AM CDT Tianna Tafoya RN Active * Do you have difficulty dressing or bathing? Answer Date of Assessment Author Status No 12/18/2018 9:00 AM CDT Tianna Tafoya R N Active * Because of a physical, mental, or emotional condition, do you have difficulty doing errands alone such as visiting a doctor's office or shopping? Answer Date of Assessment Author Status No 12/18/2018 9:00 AM CDT Tianna Tafoya RN Active documented as of this encounter Mental Status * Because of a physical, mental, or emotional condition, do you have serious difficulty concentrating, remembering, or making decisions? Answer Entry Date Author Status No 12/18/2018 9:00 AM CDT Tianna Tafoya RN Active documented in this encounter Plan of Treatment Upcoming Encounters Date Type Department Care Team (Late st Contact Info) Description 09/07/2024 4:[address] [facility] [address] [place] [address] Cata Braswell, YARIEL [address] [facility] [address] [place] [phone] 03/14/2025 9:30 AM CDT Office Visit [facility] [address] [place] [phone] Mónica Gaffney MD [address] [place] [address] documented as of this encounter Visit Diagnoses Not on filedocumented in this encounter Additional Health Concerns Infection Onset Date Last Indicated Resolved Time COVID-19 Rule Out 06/15/2021 06/15/2021 06/15/2021 9:55 AM MANAGER ENGAGEMENT COVID-19 Rule Out 07/10/2021 07/10/2021 07/10/2021 1:47 PM MANAGER ENGAGEMENT documented as of this encounter Care Teams Out Of Town Collection Clerk Relationship Specialty Start Date End Date Gray Brock MD [address] [place] [address] PCP - General FAMILY PRACTICE 12/15/18 04/02/22 Reilly Grant MD [address] [place] [phone] PCP - General FAMILY PRACTICE 04/03/22 Ruben Mg MD [address] [place] [address] Consulting Physician INTERVENTIONAL CARDIOLOGY 11/29/20 Lincoln Evans MD [address] [place] [address] Consulting Physician CLINICAL CARDIAC ELECTROPHYSIOLOGY 03/22/22 Mónica Gaffney MD [address] [place] [address] Consulting Physician CARDIOVASCULAR DISEASE 02/25/23 documented as of this encounter
--- OUTSIDE RECORDS SUMMARY | 2024-09-04 22:06 | XMS_ITS | Clinical Summary ---
Author Organization [facility] Address [address] [place] [address] Care Team Providers Care Pre Press Proofer Name Role Phone Reilly Grant MD Primary Care Provider Allergies Active Allergy Reactions Criticality Noted Date Comments Codeine Anxiety Low 09/19/2021 Fentanyl Anxiety Low 09/19/2021 Ketorolac Unknown 06/15/2021 Oxycodone-Acetaminophen Nausea And Vomiting 12/2021 Penicillins Dizziness,Nausea And Vomiting,Stomach upset Low 02/28/2011 Propoxyphene Nausea And Vomiting 06/15/2021 Tramadol Other (See comments) Low 06/15/2021 Racing heat, abdominal cramping, cold sweats Medications calcium carbonate (TUMS) 500 mg (200 mg elemental) chewable tablet Take 1 tablet/chew tab (500 mg total) by mouth daily Active aluminum-magnes ium hydroxide-simet hicone (MAALOX) suspension 200-200-20 mg/5 mL Take by mouth every 6 (six) hours as needed Active gabapentin (NEURONTIN) 400 mg capsule Take 1 capsule (400 mg total) by mouth 3 (three) times a day 3 Active LORazepam (ATIVAN) 0.5 mg tablet Take 1 tablet (0.5 mg total) by mouth every 8 (eight) hours as needed 3 Active Trintellix 10 mg tablet Take 2 tablets (20 mg total) by mouth daily with dinner 3 Active hyoscyamine (LEVSIN) 0.125 mg SL tabletIndicatio ns:Irritable Bowel Syndrome,diarrh ea Take 1 tablet (0.125 mg total) by mouth every 4 (four) hours as needed for cramping 30 tablet 3 3 Active ferrous sulfate 325 mg (65 mg of elemental iron) tabletIndicatio ns:Iron Deficiency Anemia Take 1 tablet (65 mg of elemental iron total) by mouth daily with breakfast Active ascorbic acid (ascorbic acid with israel hips) 500 mg tablet,chewable Take 1 tablet/chew tab (500 mg total) by mouth daily Active diphenhydrAMINE 25 mg capsule Take 1 tablet/capsule (25 mg total) by mouth every 6 (six) hours as needed for itching Taking for allergic reaction to flu vaccine Active omeprazole (PriLOSEC) 40 mg capsule Take 1 capsule (40 mg total) by mouth 2 (two) times a day before breakfast and dinner Before breakfast, before dinner 180 capsule 3 3 Active promethazine (PHENERGAN) 12.5 mg tablet Take 1 tablet (12.5 mg total) by mouth every 6 (six) hours as needed for nausea or vomiting 30 tablet 1 3 Active Active Problems Problem Noted Date Diagnosed Date Endometriosis 03/19/2023 Dysmenorrhea 03/19/2023 Iron deficiency anemia due to chronic blood loss 01/20/2023 Tubular adenoma of colon 01/08/2023 Overview (01/17/2023): 01/08/23 5 mm Tubular adenoma Irritable bowel syndrome with diarrhea Anemia due to vitamin B12 deficiency 05/07/2022 Gastroesophageal reflux disease without esophagi tis 05/07/2022 Dyspepsia 05/07/2022 Myocardial bridge 03/02/2021 History of cholecystectomy 03/20/2016 Current smoker 12/06/2015 Surgical History Surgery Date Site/Laterality Comments LAPAROSCOPIC CHOLECYSTECTOMY 06/09/2009 - 06/08/2010 N/A DIAGNOSTIC LAPAROSCOPY 06/09/2015 - 06/08/2016 N/A no endometriosis LITHOTRIPSY 06/09/2014 - 06/08/2015 CARDIAC CATHETERIZATION 01/22/2021 COLONOSCOPY NEPHROLITHOTOMY 06/09/2018 - 06/08/2019 Right Medical History Medical History Date Comments Anxiety disorder Vitamin B12 deficiency Nephrolithiasis Anemia Sleep apnea Arrhythmia hx tachycardia t hought to be related to anemia--no other cause found by cardio per pt Anesthesia complication had job ycardia in 2 prior surgeries--once so bad that surgery was interrupted Family History Medical History Relation Name Comments Hypertension Father Heart attack Mother Family history of myocardial infarction - (Added by TW Conv) Pulmonary embolism Mother Viktoria's thyroiditis Sister Stroke Sister Family history of cerebrovascular accident (CVA) - (Added by TW Conv) Relation Name Status Comments Father Mother Sister Social History Tobacco Use Types Packs/Day Years Used Date Smoking Tobacco: Former Cigarettes 2016 E-cigarettes Started: Tobacco Cessation:Counseling Given: Not Answered AUDIT-C Answer Date Recorded Q1: How often do you have a drink containing alcohol? Never 03/19/2023 Q2: How many drinks containi ng alcohol do you have on a typical day when you are drinking? Patient does not drink Q3: How often do you have si x or more drinks on one occasion? Never 03/19/2023 Personal Safety Answer Date Recorded Have you ever been in or are you currently in a harmful physical or emotional relationship or is someone making you feel afraid or unsafe? Denies 03/19/2023 Comments No Sex and Gender Information Value Date Recorded Sex Assigned at Not on file Legal Sex Female 12:18 AM AUDIO VISUAL EQUIPMENT RENTAL CLERK Gender Identity Not on file Sexual Orientation Not on file Obstetrics History Last Filed Vital Signs Vital Sign Reading Time Taken Comments Blood Pressure 132/95 04/28/2023 1:23 PM AUDIO VISUAL EQUIPMENT RENTAL CLERK Pulse 93 04/28/2023 1:23 PM AUDIO VISUAL EQUIPMENT RENTAL CLERK Temperature 37 C (98.6 F) 04/28/2023 1:23 PM AUDIO VISUAL EQUIPMENT RENTAL CLERK Respiratory Rate 14 03/19/2023 4:15 PM CDT Oxygen Saturation 95% 03/19/2023 4:15 PM CDT Inhaled Oxygen Concentration - - Weight 64.4 kg (142 lb) 04/28/2023 1:23 PM AUDIO VISUAL EQUIPMENT RENTAL CLERK Height 152.4 cm (5') 04/28/2023 1:23 PM AUDIO VISUAL EQUIPMENT RENTAL CLERK Body Mass Index 27.73 04/28/2023 1:23 PM AUDIO VISUAL EQUIPMENT RENTAL CLERK Plan of Treatment Health Maintenance Due Date Last Done Comments Depression Screening 1980 Hepatitis C Screening 1980 DTaP/Tdap/Td Vaccine (1 - Tdap) 1993 Varicella Vaccines (1 of 2 - 13+ 2-dose series) 1995 Hepatitis B Screening 2000 Regular Well Visit/Exam 18-64 2000 Cervical Cancer Screening 10/29/2022 10/29/2021 Covid-19 Vaccine ( season) 2024 12/28/2020, 12/07/2020 Influenza Vaccine (#1) 2024 05/30/2020 Breast Cancer Screening-Mammogram 10/08/2024 10/09/2023, 10/09/2023, 09/05/2022, Additional history exists Colon Cancer Screening-Colonoscopy 01/08/2030 01/08/2023 HPV Vaccines Aged Out No longer eligi ble based on patient's age to complete this topic Pneumococcal vaccine <65 Aged Out No longer eligible based on patient's age to complete this topic Procedures Procedure Name Priority Date/Time Associated Diagnosis Comments COLONOSCOPY 01/08/2023 8:44 AM CDT from Last 3 Months or Most Recently Relevant to Health Maintenance Results * COLONOSCOPY (01/08/2023 8:44 AM CDT) Anatomical Region Laterality Modality Other Narrative Procedure Note Peggy Santos MD - 01/08/2023 8:44 AM CDT [facility] Patient Name: Alice Deshpande Procedure Date: 01/08/2023 8:44 AM Date of : 1980 Admit Type: Outpatient Age: 42 Gender: Female Attending MD: Peggy Santos M.D. Room: [facility] ENDOSCOPY ROOM 9 Note Status: Finalized Procedure: Colonoscopy Indications: Chronic diarrhea, Hematochezia Referring MD: Reilly Grant M.D. Providers: Peggy Santos M.D. Medicines: Monitored Anesthesia Care Complications: No immediate complications. Estimated Blood Loss: Estimated blood loss was minimal. Procedure: Pre-Anesthesia Assessment: - Immediately prior to administration ofmedications, the patient was re-assessed for adequacy to receive sedatives. - The risks and benefits of the procedure and the sedation options and risks were discussed with the patient. All questions were answered and informed consent was obtained. The benefits, risks and alternatives of theprocedure and sedation were discussed and informed consentwas obtained. All questions were answered. Please referto the signed informed consent document in the medical record. The scope was passed under direct vision.The PCF [id number] endoscope was introducedthrough the anus and advanced to the terminal ileum, with identification of the appendiceal orifice and IC valve. The bowel preparation used was GoLYTELY via split dose instruction. The quality of the bowel preparation was evaluated using the BBPS (BostonBowel Preparation Scale) with scores of: Right Colon = 3, Transverse Colon = 3 and Left Colon = 3 (entiremucosa seen well with no residual staining, smallfragments of stool or opaque liquid). The total BBPS score equals 9. The terminal ileum, ileocecal valve, appendiceal orifice, and rectum were photographed. Bowel prep was administered using a split dose. The quality of the bowel preparation was excellent. Findings: The perianal and digital rectal examinations were normal. A 5 mm polyp was found in the recto-sigmoid colon. The polyp was sessile. The polyp was removed with a cold snare. Resection and retrieval were complete. Estimated blood loss was minimal. The colon (entire examined portion) appeared normal. Biopsies for histology were taken with a cold forceps from the right colon andleft colon for evaluation of microscopic colitis. Estimated blood loss was minimal. The terminal ileum appeared normal. No additional abnormalities were found on retroflexion. Impression: - One 5 mm polyp at the recto-sigmoid colon,removed with a cold snare. Resected and retrieved. - The entire examined colon is normal. Biopsied. - The examined portion of the ileum was normal. Recommendation: - Patient has a contact number available for emergencies. The signs and symptoms of potential delayed complications were discussed with thepatient. Return to normal activities tomorrow. Written discharge instructions were provided to thepatient. - Resume previous diet. - Continue present medications. - Await pathology results. - Repeat colonoscopy in 7-10 years for surveillance based on pathology results. - Return to GI office as previously scheduled. Attending Participation: I personally performed the entire procedure. Electronically signed by Peggy Santos MD Peggy Santos M.D. 01/08/2023 9:17:57 AM . Number of Addenda: 0 Note Initiated On: 01/08/2023 8:44 AM Recognized by the [employer] for promoting quality in endoscopy Peggy Santos MD ENDOSCOPY PROCEDURES Phuong l Result from Last 3 Months or Most Recently Relevant to Health Maintenance Insurance AETNA [facility] AETNA [employer] [facility] [place] Advance Directives For more information, please contact: [phone] * Full Code (Latest Code Status on File) Date Activated Date Inactivated Comments 01/08/2023 7:29 AM 01/08/2023 1:47 PM Care Teams Pre Press Proofer Relationship Specialty Start Date End Date Reilly Grant MD PCP - General Family Medicine 08/02/22
--- OUTSIDE RECORDS SUMMARY | 2024-09-04 22:06 | XMS_ITS | Encounter Summary ---
Author Organization [facility] Address [address] [place] [address] Care Team Providers Care Administration Specialist Name Role Phone Gray Brock MD Primary Care Provider Ruben Mg MD Unavailable Unavailable Lincoln Evans MD Unavailable [phone] Reilly Grant MD Primary Care Provider Mónica Gaffney MD Unavailable Encounter Details Date Type Department Care Team (Late st Contact Info) Description 07/03/2021 BadSeed Message Enc [facility] eld [address] [place] [address] Kelsi Driver, TEXTILE SCIENCE TECHNICIAN, BARREL FINISHER-C [address] [facility] [address] [place] [address] Update Social History Tobacco Use Types Packs/Day Years [...] Sex Assigned at Female 07/07/2024 3:15 PM PROFESSIONAL SPORTS SCOUT Legal Sex Female 5:45 PM PROFESSIONAL SPORTS SCOUT Gender Identity Female 07/10/2021 6:40 AM PROFESSIONAL SPORTS SCOUT Sexual Orientation Not on file Occupation Industry Job Start Date Job End Date Not on file Not on file Not on file Not on file COVID-19 Exposure Response Date Recorded In the last month, have you been in contact with someone who was confirmed or suspected to have Coronavirus / COVID-19? No / Unsure 06/29/2021 1:51 PM PROFESSIONAL SPORTS SCOUT documented as of this encounter Functional Status [...] Assessment Author Status No 12/18/2018 9:00 AM BENTLEYT Tianna Tafoya RN Active * Because of a physical, mental, [...] Info) Description 09/07/2024 4:00 PM CDT Appointment [facility] [address] [place] [address] Cata Braswell NP [address] Mic[address] [place] [phone] 03/14/2025 9:30 AM CDT Office Visit [facility] [address] [place] [phone] Mónica Gaffney MD [address] [place] [address] documented as of this encounter Visit Diagnoses Not on filedocumented in this encounter Additional Health Concerns Infection Onset Date Last Indicated Resolved Time COVID-19 Rule Out 07/10/2021 07/10/2021 07/10/2021 1:47 PM PROFESSIONAL SPORTS SCOUT documented as of this encounter Care Teams Administration Specialist Relationship Specialty Start Date End Date Gray Brock MD [address] [place] [address] PCP - General FAMILY PRACTICE 12/15/18 04/02/22 Reilly Grant MD [address] [place] [phone] PCP - General FAMILY PRACTICE 04/03/22 Ruben Mg MD [address] [place] [address] Consulting Physician INTERVENTIONAL CARDIOLOGY 11/29/20 Lincoln Evans MD [address] [place] [phone] Consulting Physician CLINICAL CARDIAC ELECTROPHYSIOLOGY 03/22/22 Mónica Gaffney MD [address] [place] [address] Consulting Physician CARDIOVASCULAR DISEASE 02/25/23 documented as of this encounter
--- OUTSIDE RECORDS SUMMARY | 2024-09-04 22:06 | XMS_ITS | Encounter Summary ---
Author Organization [facility] Address [address] [place] [address] Care Team Providers Care Christmas Bell Ringer Name Role Phone Gray Brock MD Primary Care Provider [phone] Ruben Mg MD Unavailable Unavailable Lincoln Evans MD Unavailable [phone] Reilly Grant MD Primary Care Provider Mónica Gaffney MD Unavailable Encounter Details Date Type Department Care Team (Late st Contact Info) Description 02/25/2022 Hotelicopter Message [facility] [place] [address] Ruben Mg MD Ekg Social History Tobacco Use Types Packs/Day Years Used Date Smoking Tobacco: Former Electronic Cigarettes Smokeless Tobacco: Never Comments:smokes ecigs [...] Sex Assigned at Female 07/07/2024 3:15 PM VENDING MACHINE TECHNICIAN Legal Sex Female 5:45 PM VENDING MACHINE TECHNICIAN Gender Identity Female 07/10/2021 6:40 AM VENDING MACHINE TECHNICIAN Sexual Orientation Not on file Occupation Industry Job Start Date Job End Date Not on file Not on file Not on file Not on file COVID-19 Exposure Response Date Recorded In the last 10 days, have yo u been in contact with someone who was confirmed or suspected to have Coronavirus/COVID-19? No / Unsure 02/27/2022 1:50 PM CDT documented as of this encounter [...] AM CDT Tianna Tafoya RN Active * Because of [...] Description 09/07/2024 4:[address] [facility] [address] [place] [address] Cata Braswell, YARIEL [address] [phone] 03/14/2025 9:30 AM CDT Office Visit [facility] [address] [place] [phone] Mónica Gaffney MD [address] [place] [address] documented as of this encounter Visit Diagnoses Not on filedocumented in this encounter Care Teams Christmas Bell Ringer Relationship Specialty Start Date End Date Gray Brock MD [address] [place] [address] PCP - General FAMILY PRACTICE 12/15/18 04/02/22 Reilly Grant MD [address] [place] [phone] PCP - General FAMILY PRACTICE 04/03/22 Ruben Mg MD [address] [place] [address] Consulting Physician INTERVENTIONAL CARDIOLOGY 11/29/20 Lincoln Evans MD [address] [place] [address] Consulting Physician CLINICAL CARDIAC ELECTROPHYSIOLOGY 03/22/22 Mónica Gaffney MD [address] [place] [address] Consulting Physician CARDIOVASCULAR DISEASE 02/25/23 documented as of this encounter
--- OUTSIDE RECORDS SUMMARY | 2024-09-04 22:06 | XMS_ITS | Encounter Summary ---
Author Organization [facility] Address [address] [place] [address] Care Team Providers Care Inspector Set Up And Lay Out Name Role Phone Gray Brock MD Primary Care Provider [phone] Ruben Mg MD Unavailable Unavailable Lincoln Evans MD Unavailable [phone] Reilly Grant MD Primary Care Provider Mónica Gaffney MD Unavailable Encounter Details Date Type Department Care Team (Late st Contact Info) Description 03/24/2022 Travelnuts Message [facility] [place] [address] Rubne Mg MD Ekg Social History Tobacco Use [...] Sex Assigned at Female 07/07/2024 3:15 PM MARINE RIGGER Legal Sex Female 5:45 PM MARINE RIGGER Gender Identity Female 07/10/2021 6:40 AM MARINE RIGGER Sexual Orientation Not on file Occupation Industry Job Start Date Job End Date Not on file Not on file Not on file Not on file COVID-19 Exposure Response Date Recorded In the last 10 days, have yo u been in contact with someone who was confirmed or suspected to have Coronavirus/COVID-19? No / Unsure 03/23/2022 12:40 PM CDT documented as of this encounter [...] CDT Appointment [facility] [address] [place] [address] Cata Braswell, YARIEL [address] [phone] 03/14/2025 9:30 AM CDT Office Visit [facility] [address] [place] [phone] Mónica Gaffney MD [address] [place] [address] documented as of this encounter Visit Diagnoses Not on filedocumented in this encounter Care Teams Inspector Set Up And Lay Out Relationship Specialty Start Date End Date Gray Brock MD [address] [place] [address] PCP - General FAMILY PRACTICE 12/15/18 04/02/22 Reilly Grant MD [address] [place] [phone] PCP - General FAMILY PRACTICE 04/03/22 Ruben Mg MD [address] [place] [address] Consulting Physician INTERVENTIONAL CARDIOLOGY 11/29/20 Lincoln Evans MD [address] [place] [address] Consulting Physician CLINICAL CARDIAC ELECTROPHYSIOLOGY 03/22/22 Mónica Gaffney MD [address] [place] [address] Consulting Physician CARDIOVASCULAR DISEASE 02/25/23 documented as of this encounter
--- OUTSIDE RECORDS SUMMARY | 2024-09-04 22:06 | XMS_ITS | Encounter Summary ---
Author Organization [facility] Address [address] [place] [address] Phone Care Team Providers Care Machine Brush Maker Name Role Phone Unknown, Notinfile Primary Care Provider Unavail able Gray Brock MD Primary Care Provider [phone] Unknown, Notinfile Primary Care Provider Unavail able Gray Brock MD Primary Care Provider [phone] Gray Brock MD Primary Care Provider [phone] Gray Borck MD Primary Care Provider [phone] Unknown, Notinfile Primary Care Provider Unavail able Unknown, Notinfile Primary Care Provider Unavail able Gray Brock MD Primary Care Provider [phone] Unknown, Notinfile Primary Care Provider Unavail able Unknown, Notinfile Primary Care Provider Unavail able Gray Brock MD Primary Care Provider [phone] Unknown, Notinfile Primary Care Provider Unavail able Gray Brock MD Primary Care Provider [phone] Reilly Grant MD Primary Care Provider [phone] Encounter Details Date Type Department Care Team (Latest Contact Info) Description 11/19/2016 Orders Only [facility] CONVERSION Scanning, Provider Social History Tobacco Use Types Packs/Day Years Used Date Smoking Tobacco: Never Assessed Comments Unknown Sex and Gender Information Value Date Recorded Sex Assigned at Not on file Legal Sex Female 12:18 AM POWDER ROOM ATTENDANT Gender Identity Not on file Sexual Orientation Not on file documented as of this encounter Plan of Treatment Not on file documented as of this encounter Procedures Procedure Name Priority Date/Time Associated Diagnosis Comments OBSTETRIC/GYNECOLOGY ULTRASONOGRAPHY REPORT 11/19/2016 9:38 AM CDT documented in this encounter Results * OBSTETRIC/GYNECOLOGY ULTRASONOGRAPHY REPORT (11/19/2016 9:38 AM CDT) Anatomical Region Laterality Modality Ultrasound us Provider Scanning IMG OB US PROCEDURES Final Res ult documented in this encounter Visit Diagnoses Not on filedocumented in this encounter Care Teams Machine Brush Maker Relationship Specialty Start Date End Date Unknown, Notinfile PCP - General 11/19/16 11/24/16 Gray Brock MD [address] [place] [address] PCP - General 11/25/16 11/25/16 Unknown, Notinfile PCP - General 11/26/16 12/22/16 Gray Brock MD [address] [place] [address] PCP - General 12/23/16 12/23/16 Gray Brock MD [address] [place] [address] PCP - General 12/24/16 01/07/17 Gray Brock MD [address] [place] [address] PCP - General 01/08/17 01/08/17 Unknown, Notinfile PCP - General 01/09/17 01/28/17 Unknown, Notinfile PCP - General 01/29/17 01/29/17 Gray Brock MD [address] [place] [address] PCP - General 01/30/17 02/13/17 Unknown, Notinfile PCP - General 02/14/17 02/16/17 Unknown, Notinfile PCP - General 02/17/17 02/18/17 Gray Brock MD [address] [place] [address] PCP - General 02/19/17 03/10/17 Unknown, Notinfile PCP - General 03/11/17 03/24/22 Gray Brock MD [address] [place] [address] PCP - General Family Practice 03/25/22 08/01/22 Reilly Grant MD [address] [place] [address] PCP - General Family Medicine 08/02/22 documented as of this encounter
--- OUTSIDE RECORDS SUMMARY | 2024-09-04 22:06 | XMS_ITS | Clinical Summary ---
Author Organization [facility] Address [facility] [place] [address] Care Team Providers Care Avian Keeper Name Role Phone Lincoln Evans MD Unavailable [phone] Reilly Grant MD Primary Care Provider Mónica Gaffney MD Unavailable Allergies Active Allergy Reactions Criticality Noted Date Comments Amoxicillin-Pot Clavulanate Nausea and Vomiting 06/15/2021 Codeine Anxiety Low 09/19/2021 Propoxyphene Nausea and Vomiting 06/15/2021 Fentanyl Anxiety Low 09/19/2021 Ketorolac Unknown 06/15/2021 Penicillins Nausea and Vomiting 06/15/2021 Oxycodone-Acetaminophen Nausea and Vomiting 12/2021 Tramadol Other (see comment) 06/15/2021 Racing heat, abdominal cramping, cold sweats Medications omeprazole (PRILOSEC) 40 MG capsule Take 1 capsule (40 mg total) by mouth 2 (two) times daily. Active cyanocobalamin (B-12) 1000 MCG/ML injection 04/04/2022 Active cyclobenzaprine (FLEXERIL) 10 MG tablet Take 0.5 tablets (5 mg total) by mouth 3 (three) times daily as needed. 03/12/2022 Active gabapentin (NEURONTIN) 100 MG capsule Take 6 capsules (600 mg total) by mouth 3 (three) times daily. 08/30/2022 Active LORazepam (ATIVAN) 1 MG tablet Take 0.5 tablets (0.5 mg total) by mouth every 6 (six) hours as needed. 03/20/2022 Active TRINTELLIX 20 MG tablet Take 1 tablet (20 mg total) by mouth daily. 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 ([facility]) 12/28/2020 03/02/2021 Right wrist tendonitis 03/02/202002/27 Assessment & Plan (03/02/2020 3:47 PM CDT): ECU tendonitis Abdominal pain 01/02/2019 02/27/2022 Encounters Date Type Department Care Team Description 07/19/2024 7:55 AM LUBE ATTENDANT - 07/19/2024 11:59 PM [facility] Hospital Encounter [facility] [address] [place] [address] Jessica Clark F, DO Discharge Disposition: Home or Self Care (Routine Discharge) 07/19/2024 Travel 07/07/2024 2:49 PM LUBE ATTENDANT - 07/07/2024 4:59 PM [facility] [address] [place] [address] Yuridia Ledesma MD Abdominal Pain; Urinary Symptoms Discharge Disposition: Home or Self Care (Routine Discharge) 07/07/2024 Travel from Last 3 Months Immunizations Name Administration Dates Next Due Influenza Adult (Generic) 05/30/2020 Family History Medical History Relation Comments Hypertension Father Heart Disease Mother Hypertension Mother pulmonary embolism Mother Relation Status Comments Father Alive Maternal Grandfather Maternal Grandmother Mother Alive Paternal Grandfather Paternal Grandmother Social History Tobacco Use Types Packs/Day Years Used Date Smoking Tobacco: Former Electronic Cigarettes Smokeless Tobacco: Never Tobacco Cessation:Counseling Given: Not Answered Comments:smokes ecigs Alcohol Use Standard Drinks/Week Comments No 0 (1 standard drink = 0.6 oz pur e alcohol) AUDIT-C Answer Date Recorded Frequency of Alcohol Consumption Never 12/11/2018 Average Number of Drinks Not on file 019 Frequency of Binge Drinking Not on file 10/2018 Comments No Sex and Gender Information Value Date Recorded Sex Assigned at Female 07/07/2024 3:15 PM LUBE ATTENDANT Legal Sex Female 5:45 PM LUBE ATTENDANT Gender Identity Female 07/10/2021 6:40 AM LUBE ATTENDANT Sexual Orientation Not on file Occupation Industry Job Start Date Job End Date Not on file Not on file Not on file Not on file Last Filed Vital Signs Vital Sign Reading Time Taken Comments Blood Pressure 140/96 07/07/2024 4:30 PM LUBE ATTENDANT Pulse 86 07/07/2024 2:59 PM LUBE ATTENDANT Temperature 37.1 C (98.8 F) 07/07/2024 2:59 PM LUBE ATTENDANT Respiratory Rate 18 07/07/2024 2:59 PM LUBE ATTENDANT Oxygen Saturation 95% 07/07/2024 4:45 PM LUBE ATTENDANT Inhaled Oxygen Concentration - - Weight 69.6 kg (153 lb 8 oz) 07/07/2024 2:59 PM LUBE ATTENDANT Height 152.4 cm (5') 07/07/2024 2:59 PM LUBE ATTENDANT Body Mass Index 29.98 07/07/2024 2:59 PM LUBE ATTENDANT Plan of Treatment Upcoming Encounters Date Type Department Care Team (Late st Contact Info) Description 09/07/2024 4:[address] [facility] [address] [place] [address] Cata Braswell, LICENSE REGISTRATION EXAMINER [address] [facility] [address] [place] [phone] 03/14/2025 9:30 AM CDT Office Visit [facility] [address] [place] [phone] Mónica Gaffney MD [address] [place] [address] Health Maintenance Due Date Last Done Comments Annual Physical 1985 Hepatitis C 2000 DTaP, Tdap and Td Vaccines ( 1 - Tdap) 2001 Hepatitis B Vaccines (1 of 3 - 19+ 3-dose series) 2001 COVID-19 Vaccine (2023-2 5 season) 2024 12/28/2020, 12/07/2020 Cervical Cancer Screening Pa p Smear (Age 30 to 64) Every 3 Years 10/29/2024 10/29/2021 Mammogram Screening 10/08/2025 10/09/2023, 09/05/2022, 08/29/2021 Cervical Cancer Screening Pa p with HPV Testing (Age 30 to 64) Every 5 Years 10/29/2026 10/29/2021 Cervical Cancer Screening wi th HPV 10/29/2026 HPV Vaccines Aged Out No longer eligi ble based on patient's age to complete this topic Meningococcal B Vaccine Aged Out No l onger eligible based on patient's age to complete this topic Meningococcal Vaccine Aged Out No iqra stephanie eligible based on patient's age to complete this topic Pneumococcal Vaccine: Pediatrics (0 to 5 Years) and At-Risk Patients (6 to 64 Years) Aged Out No longer eligible b ased on patient's age to complete this topic RSV Immunizations Under 20 Months Aged Out No longer eligible b ased on patient's age to complete this topic Procedures Procedure Name Priority Date/Time Associated Diagnosis Comments US RETROPERITONEAL COMP Routine 07/19/19 9:16 AM LUBE ATTENDANT Kidney stone URINE BACTERIA CULTURE STAT 3:30 PM LUBE ATTENDANT HC URINALYSIS AUTO W/MICRO STAT 07/07/2024 3:30 PM LUBE ATTENDANT MG SCREENING W AFTAB KIAN DIGI Routine 10/09/2023 7:48 AM CDT Encounter for screening mammogram for malignant neoplasm of breast HUMAN PAPILLOMAVIRUS, HIGH-RISK TYPES Routine 10/29/2021 12:00 PM CDT CYTOPATH CERV/VAG THIN LAYER Routine 10/29/2021 8:26 AM CDT from Last 3 Months or Most Recently Relevant to Health Maintenance Results * US RETROPERITONEAL COMP (07/19/2024 9:16 AM LUBE ATTENDANT) Anatomical Region Laterality Modality Abdomen Ultrasound 07/19/2024 1:03 PM LUBE ATTENDANT Impressions 07/19/2024 1:05 PM LUBE ATTENDANT IMPRESSION: 1) Focal parenchymal scarring right kidney similar to previous study. 2. Echogenic foci consistent with retained small nonobstructing stones lower pole both kidneys similar to previous study. No evidence of hydronephrosis. 3. Small bladder postvoid residual. Ordered By: JESSICA CLARK Interpreted By: Adrian Joseph MD, 07/19/2024 1:03 PM Narrative 07/19/2024 1:05 PM LUBE ATTENDANT [address] [place] [address] Examination: US RETROPERITONEAL COMP Exam time: 07/19/2024 9:16 AM Clinical history: History of renal stones Comparison: Ultrasound 02/11/2024, CT abdomen 09/09/2022 Technique: Longitudinal and transverse grayscale images of the kidneys and bladder. Color Doppler. Post void bladder images. Findings: Renal ultrasound: Right kidney measures 11.1 cm in length with the left kidney measuring 11 cm. There is some focal parenchymal thinning and scarring involving the right kidney similar to previous study. Left renal parenchyma has normal thickness and echogenicity. There is no significant hydronephrosis on either side. Echogenic foci are noted in the lower pole regions of both kidneys consistent with retained nonobstructing stones similar to previous study. No abnormal perirenal fluid. No definite evidence of solid renal mass lesion. Color Doppler demonstrates blood flow to both kidneys. Bladder ultrasound: The filled bladder volume is estimated at 455 mL. No focal bladder lesion is demonstrated. Color Doppler demonstrates active bilateral urine jets. Post void bladder residual estimated at 15 mL. Procedure Note Adrian Joseph MD - 07/19/[address] [place] [address] Examination: US RETROPERITONEAL COMP Exam time: 07/19/2024 9:16 AM Clinical history: History of renal stones Comparison: Ultrasound 02/11/2024, CT abdomen 09/09/2022 Technique: Longitudinal and transverse grayscale images of the kidneys andbladder. Color Doppler. Post void bladder images. Findings: Renal ultrasound: Right kidney measures 11.1 cm in length with the leftkidney measuring 11 cm. There is some focal parenchymal thinning andscarring involving the right kidney similar to previous study. Left renalparenchyma has normal thickness and echogenicity. There is no significanthydronephrosis on either side. Echogenic foci are noted in the lower poleregions of both kidneys consistent with retained nonobstructing stonessimilar to previous study. No abnormal perirenal fluid. No definiteevidence of solid renal mass lesion. Color Doppler demonstrates blood flowto both kidneys. Bladder ultrasound: The filled bladder volume is estimated at 455 mL. Nofocal bladder lesion is demonstrated. Color Doppler demonstrates activebilateral urine jets. Post void bladder residual estimated at 15 mL. IMPRESSION: 1) Focal parenchymal scarring right kidney similar to previous study. 2. Echogenic foci consistent with retained small nonobstructing stoneslower pole both kidneys similar to previous study. No evidence ofhydronephrosis. 3. Small bladder postvoid residual. Ordered By: JESSICA CLARK Interpreted By: Adrian Joseph MD, 07/19/2024 1:03 PM us Jessica Clark DO ULTRASOUND Final Resu lt * (ABNORMAL) URINALYSIS (07/07/2024 3:30 PM LUBE ATTENDANT) COLOR (U) AMRIK 07/07/2024 4:07 PM [facility] TRANSPARENCY CLEAR 07/07/2024 4:07 PM [facility] SPECIFIC GRAVITY (U) 1.010 1.000 - 1.025 07/07/2024 4:07 PM [facility] U PH 6.5 5.0 - 8.0 07/07/2024 4:07 PM [facility] LEUKOCYTES (U) 3+(A) NEGATIVE 07/07/2024 4:07 PM [facility] NITRITES POSITIVE(A) NEGATIVE 07/07/2024 4:07 PM [facility] PROTEIN RANDOM (U) 1+(A) NEGATIVE 07/07/2024 4:07 PM [facility] GLUCOSE (U) TRACE(A) NEGATIVE 07/07/2024 4:07 PM [facility] KETONES MG/DL (U) NEGATIVE NEGATIVE 07/07/2024 4:07 PM [facility] UROBILINOGEN 1.0(H) <1.0 EU/DL 07/07/2024 4:07 PM [facility] BILIRUBIN (U) NEGATIVE NEGATIVE 07/07/2024 4:07 PM [facility] BLOOD (U) 3+(A) NEGATIVE 07/07/2024 4:07 PM [facility] WBC/HPF 50-100(A) 0 - 5 /HPF 07/07/2024 4:07 PM [facility] RBC/HPF 1+(A) 0 - 5 /HPF 07/07/2024 4:07 PM [facility] EPI/LPF 0-5 /LPF 07/07/2024 4:07 PM [facility] BACTERIA (U) 2+ /HPF 07/07/2024 4:07 PM [facility] URINE SPECIMEN OBTAINED BY CLEAN CATCH PROCEDURE / Unknown 07/07/2024 3:30 PM LUBE ATTENDANT us Yuridia Ledesma MD URINE ORDERABLES Final Resu lt [facility] [address] [place] [address], * CULTURE URINE (07/07/2024 3:30 PM LUBE ATTENDANT) SPEC DESCRIPTION URINE CLEAN CATCH 07/07/2024 3:33 PM LUBE ATTENDANT [facility] SPECIAL REQUESTS NO SPECIAL REQUEST 07/07/2024 3:33 PM [facility] CULTURE RESULT >25,000 TO 50,000 CFU/mL ESCHERICHIA COLI 07/10/2024 11:34 AM [facility] URINE SPECIMEN OBTAINED BY CLEAN CATCH PROCEDURE / Unknown 07/07/2024 3:30 PM LUBE ATTENDANT 07/07/2024 7:27 PM LUBE ATTENDANT Narrative Organism Antibiotic Method Susceptibility Escherichia coli ESBL ISAMAR (VITEK) NEGATIVE: Sensitive Escherichia coli AMPICILLIN ISAMAR (VITEK) Sensitive Escherichia coli AMOXICILLIN/CLAVULANIC A ISAMAR (VITEK) Sensitive Escherichia coli PIPRACIL/TAZO ISAMAR (VITEK) Sensitive Escherichia coli CEFAZOLIN ISAMAR (VITEK) Sensitive Escherichia coli CEFTRIAXONE ISAMAR (VITEK) Sensitive Escherichia coli CEFEPIME ISAMAR (VITEK) Sensitive Escherichia coli AZTREONAM ISAMAR (VITEK) Sensitive Escherichia coli ERTAPENEM ISAMAR (VITEK) Sensitive Escherichia coli IMIPENEM ISAMAR (VITEK) Sensitive Escherichia coli MEROPENEM ISAMAR (VITEK) Sensitive Escherichia coli GENTAMICIN ISAMAR (VITEK) Sensitive Escherichia coli CIPROFLOXACIN ISAMAR (VITEK) Sensitive Escherichia coli LEVOFLOXACIN ISAMAR (VITEK) Sensitive Escherichia coli TIGECYCLINE ISAMAR (VITEK) Sensitive Escherichia coli NITROFURANTOIN ISAMAR (VITEK) Sensitive Escherichia coli TRIMETH-SULFAMETH. ISAMAR (VITEK) Sensitive Yuridia Ledesma MD MICROBIOLOGY - GENERAL ORDE [facility] Final Result [facility] [address] [place] [address], [place] [phone] [facility] [address] [place] [address], * MG SCREENING W AFTAB KIAN DIGI (10/09/2023 7:48 AM CDT) Anatomical Region Laterality Modality Breast Bilateral Mammography 10/09/2023 3:43 PM CDT Impressions 10/09/2023 3:44 PM CDT IMPRESSION: No suspicious change since the previous exams. Recommendation: 1: Routine Screening Bilateral in 1 Year Assessment: ACR BI-RADS 2 - BENIGN FINDING(S) Ordered By: EDUIN GANDHI Interpreted By: Gregory Hahn MD, 10/09/2023 3:43 PM Narrative 10/09/2023 3:44 PM CDT Examination: Digital screening mammogram with CAD. Clinical history: Asymptomatic patient presents for routine screening. Comparison: 09/05/2022, 08/29/2021. Technique: Bilateral digital mammograms. The exam was interpreted with the use of a computer-aided detection (CAD) system. Additional 3-D tomosynthesis images were acquired. Tissue density: The breast tissue is heterogeneously dense. Findings: The breast tissue is heterogeneously dense. The dense tissue may obscure some lesions mammographically. Benign-appearing calcification noted. Benign-appearing intramammary lymph node in the lower inner quadrant on the right again evident. No suspicious mass, microcalcification or area of architectural distortion can be identified. From a mammographic standpoint, routine followup in one year would seem adequate. Eduin MIJARES MAMMO Final Result * HUMAN PAPILLOMAVIRUS, HIGH-RISK TYPES (10/29/2021 12:00 PM CDT) SPECIMEN CERVICAL/END OCERVICAL 10/31/2021 9:56 AM CDT [facility] HPV DNA HIGH RISK NEGATIVE NEGATIVE 10/31/2021 6:23 PM CDT [facility] Comment:SEE CYTOLOGY REPORT 10/29/2021 12:0 0 PM CDT Remigio Young MD PATHOLOGY/CYTOLOGY ORDERABLES Final Result [facility] [address] [place] [id number], * Cytopath Cerv/Vag Thin Layer (10/29/2021 8:26 AM CDT) THIN PREP PAP [facility] [address] [place] [address] Department of Pathology Pathology Report CERVICAL/VAGINAL PAP SMEAR REPORT Name: RACHELE DESHPANDE Age: 11 1980 (Age: 41) Location: [facility] Sex: F Collected Date: 10/29/2021 Hospital #: [id number] Date Received: 10/31/2021 Date Reported: 11/01/2021 Provider: REMIGIO CORTÉS MD INTERPRETATION CERVICAL/ENDOCERVI RICK: SATISFACTORY FOR EVALUATION. ENDOCERVICAL/TRANS FORMATION ZONE COMPONENT ABSENT. NEGATIVE FOR INTRAEPITHELIAL LESION OR MALIGNANCY. NEGATIVE FOR HIGH RISK HPV. The FDA approved Aptima HPV assay is an in vitro nucleic acid amplification test for the qualitative detection of E6/E7 viral messenger RNA (mRNA) from 14 high-risk types of human papillomavirus (HPV) in cervical specimens. The high-risk HPV types detected by the assay include: 16,18,31,33,35,39, 45,51,52,56,58,59, 66, and 68. 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 It is a screening test. Negative results on combined screening (Pap test and HPV-DNA) have a high negative predictive value (99.1-100 percent) for cervical cancer. The pap test is not effective in detecting cervical adenocarcinoma. [facility] 10/29/2021 8:26 AM CDT 10/31/2021 8:26 AM CDT Comment:CERVICAL/ENDOCERVICA L us Remigio Young MD PATHOLOGY/CYTOLOGY ORDERABLES Final Result [facility] [address] [facility] [employer] [place] [address], [place] [phone] from Last 3 Months or Most Recently Relevant to Health Maintenance Insurance AETNA Advance Directives * Full Code (Latest Code Status on File) Date Activated Date Inactivated Comments 12/17/2018 3:01 PM 12/18/2018 7:12 PM Care Teams Avian Keeper Relationship Specialty Start Date End Date Reilly Grant MD [address] [place] [phone] PCP - General FAMILY PRACTICE 04/03/22 Lincoln Evans MD [address] [place] [address] Consulting Physician CLINICAL CARDIAC ELECTROPHYSIOLOGY 03/22/22 Mónica Gaffney MD [address] [place] [address] Consulting Physician CARDIOVASCULAR DISEASE 02/25/23
--- OUTSIDE RECORDS SUMMARY | 2024-09-04 22:06 | XMS_ITS | Referral Summary ---
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 History of cholecystectomy 03/20/2016 Current smoker 12/06/2015 Social History Tobacco Use Types Packs/Day Years [...] on file Legal Sex Female 12:18 AM CEMENT CONTRACTOR Gender Identity Not on file Sexual Orientation Not on file Last Filed Vital Signs Vital Sign Reading Time Taken Comments Blood Pressure 132/95 04/28/2023 1:23 PM CEMENT CONTRACTOR Pulse 93 04/28/2023 1:23 PM CEMENT CONTRACTOR Temperature 37 C (98.6 F) 04/28/2023 1:23 PM CEMENT CONTRACTOR Respiratory Rate 14 03/19/2023 4:15 PM CDT Oxygen Saturation 95% 03/19/2023 4:15 PM CDT Inhaled Oxygen Concentration - - Weight 64.4 kg (142 lb) 04/28/2023 1:23 PM CEMENT CONTRACTOR Height 152.4 cm (5') 04/28/2023 1:23 PM CEMENT CONTRACTOR Body Mass Index 27.73 04/28/2023 1:23 PM CEMENT CONTRACTOR Plan of Treatment Not on file Procedures Procedure Name Priority Date/Time Associated Diagnosis [...] Female Attending MD: Peggy Santos M.D. Room: [facility] ENDOSCOPY ROOM 9 Note Status: [...] The scope was passed under direct vision.The [facility] [id number] endoscope was introducedthrough the anus and [...] On: 01/08/2023 8:44 AM Recognized by the [place] [employer] for promoting quality in endoscopy Peggy Santos MD ENDOSCOPY PROCEDURES Phuong l Result from Last 3 Months or Most Recently Relevant to Health Maintenance Insurance AETNA [facility] AETNA BETTER [facility] [place] Advance Directives For more information, please contact: [phone] * Full Code (Latest Code Status on File) Date Activated Date Inactivated Comments 01/08/2023 7:29 AM 01/08/2023 1:47 PM Care Teams Mechanical Handyman Relationship Specialty Start Date End Date Reilly Grant MD PCP - General Family Medicine 08/02/22
--- OUTSIDE RECORDS SUMMARY | 2024-09-04 22:06 | XMS_ITS | Encounter Summary ---
Author Organization [facility] Address [address] [place] [address] Care Team Providers Care Manager Respiratory Name Role Phone Gray Brock MD Primary Care Provider [phone] Ruben Mg MD Unavailable Unavailable Lincoln Evans MD Unavailable [phone] Reilly Grant MD Primary Care Provider Mónica Gaffney MD Unavailable Encounter Details Date Type Department Care Team (Late st Contact Info) Description 07/09/2021 (In)Touch Network Message Enc [facility] eld [address] [place] [address] Kelsi Driver, GRINDER OUTSIDE DIAMETER, MANUFACTURING SCHEDULER-C [address] [facility] [address] [place] [address] Labs Social History Tobacco Use Types Packs/Day Years [...] Sex Assigned at Female 07/07/2024 3:15 PM RN SHIFT MGR Legal Sex Female 5:45 PM RN SHIFT MGR Gender Identity Female 07/10/2021 6:40 AM RN SHIFT MGR Sexual Orientation Not on file Occupation Industry Job Start Date Job End Date Not on file Not on file Not on file Not on file COVID-19 Exposure Response Date Recorded In the last month, have you been in contact with someone who was confirmed or suspected to have Coronavirus / COVID-19? No / Unsure 07/10/2021 5:58 AM RN SHIFT MGR documented as of this encounter Functional Status [...] Info) Description 09/07/2024 4:00 PM CDT Appointment [facility] [address] [place] [address] Cata [place]well NP [address] [place] [phone] 03/14/2025 9:30 AM CDT Office Visit [facility] [address] [place] [phone] Mónica Gaffney MD [address] [place] [address] documented as of this encounter Visit Diagnoses Not on filedocumented in this encounter Additional Health Concerns Infection Onset Date Last Indicated Resolved Time COVID-19 Rule Out 07/10/2021 07/10/2021 07/10/2021 1:47 PM RN SHIFT MGR documented as of this encounter Care Teams Manager Respiratory Relationship Specialty Start Date End Date Gray Brock MD [address] [place] [address] PCP - General FAMILY PRACTICE 12/15/18 04/02/22 Reilly Grant MD [address] [place] [phone] PCP - General FAMILY PRACTICE 04/03/22 Ruben Mg MD [address] [place] [address] Consulting Physician INTERVENTIONAL CARDIOLOGY 11/29/20 Lincoln Evans MD [address] [place] [phone] Consulting Physician CLINICAL CARDIAC ELECTROPHYSIOLOGY 03/22/22 Mónica Gaffney MD [address] [place] [address] Consulting Physician CARDIOVASCULAR DISEASE 02/25/23 documented as of this encounter
--- OUTSIDE RECORDS SUMMARY | 2024-09-04 22:06 | XMS_ITS ---
Author Organization Unknown Address [address] [place] [phone] Phone Care Team Providers Care Reconciliation Clerk Name Role Phone HORTENSIARONALD STEFANO BARNETTP Attending [...] Code Syst em Smoking History Former smoker 8563601 SNOMED CT Sex Female Assessment You had [...] SCREENING FOR MALIGNANT NEOPLASM OF CERVIX active [id number] SNOMED-CT Plan of Treatment Split Night, CPAP/BIPAP/ASV (42121) Encounters Encounter Diagnosis Start Date Code Code Sys tem Sleep apnea 04/28/2023 [id number] SNOMED-CT Personal Care Team Section Performer Name Performer Role Active Date Inactive Da te DEEP FLORES PCP - Primary care physician 2022-09-10 DEEP FLORES PCP - Primary care physician 2022-09-10
--- OUTSIDE RECORDS SUMMARY | 2024-09-04 22:06 | XMS_ITS | Encounter Summary ---
Author Organization [facility] Address [address] [place] [address] Phone Care Team Providers Care Autocad Draftsman Name Role Phone Reilly Grant MD Primary Care Provider Encounter Details Date Type Department Care Team (Late st Contact Info) Description 02/16/2024 Orders Only [facility] Scanning, Provider Social History Tobacco Use Types Packs/Day Years Used Date Smoking Tobacco: Former Cigarettes 1 2016 E-cigarettes Started: AUDIT-C Answer Date Recorded Q1: How often [...] on file Legal Sex Female 12:18 AM RN TRANSITION Gender Identity Not on file Sexual Orientation Not on file documented as of this encounter Plan of Treatment Not on file documented as of this encounter Procedures Procedure Name Priority Date/Time Associated Diagnosis Comments SCAN - LABS 02/16/2024 documented in this encounter Results * SCAN - LABS (02/16/2024) us Provider Scanning Final Result documented in this encounter Visit Diagnoses Not on filedocumented in this encounter Care Teams Autocad Draftsman Relationship Specialty Start Date End Date Reilly Grant MD PCP - General Family Medicine 08/02/22 documented as of this encounter
--- OUTSIDE RECORDS SUMMARY | 2024-09-04 22:06 | XMS_ITS | Encounter Summary ---
Author Organization [facility] Address [address] [place] [address] Care Team Providers Care Rn Concurrent Review Name Role Phone Gray Brock MD Primary Care Provider [phone] Ruben Mg MD Unavailable Unavailable Lincoln Evans MD Unavailable [phone] Reilly Grant MD Primary Care Provider Mónica Gaffney MD Unavailable Encounter Details Date Type Department Care Team (Late st Contact Info) Description 03/25/2022 Flybits Message [facility] [place] [address] Lincoln Evans MD [address] [place] [address] Ekg Social History Tobacco Use Types Packs/Day [...] Sex Assigned at Female 07/07/2024 3:15 PM ROUGH AND TRUEING MACHINE OPERATOR Legal Sex Female 5:45 PM ROUGH AND TRUEING MACHINE OPERATOR Gender Identity Female 07/10/2021 6:40 AM ROUGH AND TRUEING MACHINE OPERATOR Sexual Orientation Not on file Occupation Industry [...] Info) Description 09/07/2024 4:00 PM CDT Appointment [facility] [address] [place] [address] Cata [place], YARIEL [address] [facility] [address] [place] [phone] 03/14/2025 9:30 AM CDT Office Visit [facility] [address] Mónica Gaffney MD [address] [place] [address] documented as of this encounter Visit Diagnoses Not on filedocumented in this encounter Care Teams Rn Concurrent Review Relationship Specialty Start Date End Date Gray Brock MD [address] [place] [address] PCP - General FAMILY PRACTICE 12/15/18 04/02/22 Reilly Grant MD [address] [place] [address] PCP - General FAMILY PRACTICE 04/03/22 Ruben Mg MD [address] [place] [address] Consulting Physician INTERVENTIONAL CARDIOLOGY 11/29/20 Lincoln Evans MD [address] [place] [address] Consulting Physician CLINICAL CARDIAC ELECTROPHYSIOLOGY 03/22/22 Mónica Gaffney MD [address] [employer], [place] [address] Consulting Physician CARDIOVASCULAR DISEASE 02/25/23 documented as of this encounter
--- OUTSIDE RECORDS SUMMARY | 2024-09-04 22:06 | XMS_ITS | Encounter Summary ---
Author Organization [facility] Address [address] [place] [address] Care Team Providers Care Stove Carriage Operator Name Role Phone Gray Brock MD Primary Care Provider Ruben Mg MD Unavailable Unavailable Lincoln Evans MD Unavailable [phone] Reilly Grant MD Primary Care Provider Mónica Gaffney MD Unavailable Encounter Details Date Type Department Care Team (Late st Contact Info) Description 11/14/2018 Abstract [facility] CONVERSION [address] [place] [address] , Generic Conversion, Social History Tobacco Use Types Packs/Day Years Used Date Smoking Tobacco: Never Assessed Comments Unknown Sex and Gender Information Value Date Recorded Sex Assigned at Female 07/07/2024 3:15 PM BUILD AND RELEASE MANAGER Legal Sex Female 5:45 PM BUILD AND RELEASE MANAGER Gender Identity Female 07/10/2021 6:40 AM BUILD AND RELEASE MANAGER Sexual Orientation Not on file documented as of this encounter Plan of Treatment Upcoming Encounters Date Type Department Care Team (Late Contact Info) Description 09/07/2024 4:[address] [facility] [address] [place] [address] Cata [place], YARIEL 2087 [facility] [address] [place] [address] 03/14/2025 9:30 AM CDT Office Visit [facility] [address] [place] [id number] Mónica Gaffney MD [address] [place] [address] documented as of this encounter Visit Diagnoses Not on filedocumented in this encounter Additional Health Concerns Infection Onset Date Last Indicated Resolved Time COVID-19 Rule Out 03/28/2020 03/28/2020 03/31/2020 1:34 PM CDT COVID-19 Rule Out 09/24/2020 09/24/2020 09/24/2020 8:58 AM CDT COVID-19 Rule Out 06/15/2021 06/15/2021 06/15/2021 9:55 AM BUILD AND RELEASE MANAGER COVID-19 Rule Out 07/10/2021 07/10/2021 07/10/2021 1:47 PM BUILD AND RELEASE MANAGER documented as of this encounter Care Teams Stove Carriage Operator Relationship Specialty Start Date End Date Gray Brock MD [address] [place] [address] PCP - General FAMILY PRACTICE 12/15/18 04/02/22 Reilly Grant MD [address] [place] [address] PCP - General FAMILY PRACTICE 04/03/22 Ruben Mg MD [address] [place] [address] Consulting Physician INTERVENTIONAL CARDIOLOGY 11/29/20 Lincoln Evans MD [address] [place] [address] Consulting Physician CLINICAL CARDIAC ELECTROPHYSIOLOGY 03/22/22 Mónica Gaffney MD [address] [place] [address] Consulting Physician CARDIOVASCULAR DISEASE 02/25/23 documented as of this encounter
[2024-09-04] MEDS: ONDANSETRON INJ 4 MG/2 ML VIAL IV PUSH (22:10)
[2024-09-04 22:13] LABS: Basophils Absolute Auto 0.08 K/mm3 (0.00-0.10); Basophils Percent Auto 0.7 % (0.0-1.0); Eosinophils Absolute Auto 0.11 K/mm3 (0.02-0.50); Hematocrit 43.6 % (35.0-49.0); Hemoglobin 14.3 g/dL (12.0-15.0); Immature Granulocyte Absolute 0.03 K/mm3 (0.00-0.00); Immature Granulocyte Percent A 0.3 % (0.0-0.0); Lymphocytes Absolute Auto 3.03 K/mm3 (1.10-4.50); Lymphocytes Percent Auto 28.4 % (18.0-42.0); Mean Corpuscular HGB Conc 32.8 g/dL (32-36); Mean Corpuscular Hemoglobin 29.4 pg (27.0-31.0); Mean Corpuscular Volume 89.7 fL (78.0-102.0); Mean Platelet Volume 9.6 fl (9.2-11.8); Monocytes Absolute Auto 0.66 K/mm3 (0.10-0.90); Monocytes Percent Auto 6.2 % (2.0-11.0); Neutrophils Absolute Auto 6.76 K/mm3 (1.70-7.20); Neutrophils Percent Auto 63.4 % (50.0-70.0); Platelet Count Result 384 K/mm3 (150-420); Red Blood Count 4.86 M/mm3 (4.20-5.40); Red Cell Distribution Width 12.5 % (11.6-14.4); White Blood Count 10.7 K/mm3 (4.8-10.8)
[2024-09-04 22:22] LABS: Alanine Aminotransferase 29 U/L (14-59); Albumin Level 3.6 g/dL (3.4-5.0); Alkaline Phosphatase 103 U/L (46-116); Anion Gap 12 mmol/L (4-12); Aspartate Amino Transferase 16 U/L (15-37); Bilirubin,Total 0.5 mg/dL (0.00-1.00); Blood Urea Nitrogen 12 mg/dL (7-18); Carbon Dioxide 27 mmol/L (21-32); Chloride 102 mmol/L (98-108); Estimated CRCL calculation 58 ml/min; Estimated Glomerular Filt Rate > 60; Glucose 99 mg/dL (70-99); Osmolality Calculated 291 mOsm/kg (285-295); Potassium 3.2 mmol/L (3.5-5.1); Sodium 141 mmol/L (136-145); Total Protein 7.3 g/dL (6.4-8.2)
[2024-09-04 22:25] LABS: Lactic Acid Reflex 2.6 mmol/L (0.4-2.0)
[2024-09-04] MEDS: cloNIDine HCL 0.1 MG TABLET PO (22:42)
[2024-09-04] MEDS: POTASSIUM CHLORIDE 20 MEQ ER TABLET 40 MEQ PO (23:59)
[2024-09-05 00:06] LABS: Reflex Lactic Acid Yes or No Add Lactic
--- NOTE | 2024-09-05 00:18 | ED_ITS ---
HPI - Female Genitourinary General Chief complaint: Urogenital-Female Stated complaint: Vomiting Time Seen by Provider: 09/04/24 21:47 Source: patient Mode of arrival: ambulatory Limitations: no limitations History of Present Illness HPI Narrative: patient is a 42-year-old female with significant past medical history that presents today for possible kidney stones. She has flank pain on the left and right CVA areas. She has had this now for the last 3-4 days. She does have a history of kidney stones and has had lithotripsy multiple times and also has had a stone removed in the past. She says this does feel like kidney stones has has in the past. She says it hurts more on the left side than the right side for the flank pain. MD elicited complaint: dysuria, UTI , back pain and flank pain Onset (ago): day(s) Location of symptoms: flank Severity: similar to previous episodes Severity scale (1-10): 6 Quality of pain: sharp and dull Consistency: constant and intermittent Vaginal discharge: none Vaginal bleeding: none Urinary symptoms: Dysuria, Urgency and Frequency Exacerbating factors: urination and menstrual period Relieving factors: none Associated symptoms: loss of appetite, nausea and vomiting Treatment prior to arrival: none and sitz bath Sexual activity: Yes Patient : No Possible : unsure if Related Data Home Medications ?Medication ?Instructions ?Recorded ?Confirmed ?Last Taken ?Type omeprazole 40 mg capsule,delayed 40 mg BID 12/26/21 04/07/23 12/26/21 History release multivitamin with iron 1 tablet PO DAILY 09/19/22 04/07/23 Unknown History vortioxetine 10 mg tablet 20 mg PO DAILY 09/19/22 04/07/23 Unknown History (Trintellix) gabapentin 400 mg capsule 300 mg PO TID 02/10/23 04/07/23 Unknown History aluminum-mag hydroxide-simethicone See Rx Instructions .Route 04/07/23 04/07/23 Unknown History 400 mg-400 mg-40 mg/5 mL oral susp .COMPLEX PRN Acid Reflux (Maalox Maximum Strength) ketorolac 10 mg tablet 10 mg PO PRN PRN Pain 04/07/23 04/07/23 Unknown History mirtazapine 7.5 mg tablet 7.5 mg PO HS 04/07/23 04/07/23 Unknown History Allergies Allergy/AdvReac Type Severity Reaction Status Date / Time amoxicillin (From Augmentin) Allergy Hives Verified 09/05/24 00:34 clavulanic acid (From Allergy Hives Verified 09/05/24 00:34 Augmentin) codeine Allergy Anxiety Verified 09/05/24 00:34 fentanyl Allergy Anxiety Verified 09/05/24 00:34 morphine Allergy Anxiety Verified 09/05/24 00:34 Penicillins Allergy Hives Verified 09/05/24 00:34 propoxyphene (From Allergy Unknown Verified 09/05/24 00:34 Darvocet-N) ibuprofen (From Motrin) AdvReac Other Verified 09/05/24 00:34 ketorolac AdvReac Hives Verified 09/05/24 00:34 tramadol AdvReac Vomiting Verified 09/05/24 00:34 Review of Systems 2 Review of Systems: All systems reviewed & are unremarkable except as noted in HPI and below Constitutional: Constitutional: Reports as per HPI Eyes: Eyes: Reports no additional eye complaints ENT: Reports system reviewed and no additional complaints, except as documented Cardiovascular: Cardiovascular: Reports no additional cardiovascular complaints Respiratory: Respiratory: Reports no additional respiratory complaints Gastrointestinal: Gastrointestinal: Reports no additional gastrointestinal complaints Genitourinary: Genitourinary: Reports as per HPI, Reports nocturia and Reports dysuria Musculoskeletal: Musculoskeletal: Reports no additional musculoskeletal complaints Integumentary/Breasts: Skin/Breast: Reports system reviewed and no additional complaints, except as docu Neurologic: Reports system reviewed and no additional complaints, except as documented Psychiatric: Psychiatric: Reports no additional psychiatric complaints Endocrine: Endocrine: Reports no additional endocrine complaints Hematologic/Lymphatic: Hematologic/Lymphatic: Reports no additional hematologic/lymphatic complaints Allergic/Immunologic: Allergic/Immunologic: Reports no additional allergic/immunologic complaints [facility] Past Medical History Medical History Torticollis Chronic GERD Chest pain HTN (hypertension) Kidney stones Social History Social History Tobacco type: e-cigarettes/vaping Alcohol intake: never Substance use: never Living arrangements: with family Gender identity (if verbalized by the patient): Female Exam 2 Const: General: healthy appearing Nutritional Appearance: well nourished Orientation/consciousness: patient oriented x3 Limitations: no limitations HENMT: Head: normal to inspection Ears: external ears normal F alaina/Nose/Sinus: Normal external nose present Face and sinus: normal facial exam Mouth: Yes Normal oral and palatal mucosa present Teeth and gingiva: dentition normal Throat: posterior oropharynx normal Eyes: Conjunctivae: conjunctivae normal Pupils: Equal, round and reactive pupils present EOM: EOMs intact bilaterally Neck: Neck: normal visual inspection Chest: Chest palpation & inspection: normal inspection of the chest Resp: Effort & Inspection: normal respiratory effort Auscultation: clear to auscultation bilaterally Cardio: Rate: regular rate Rhythm: regular rhythm GI: GI Palp: Yes Soft to palpation : General: Yes bladder normal to palpation External Female Exam: normal external appearance Speculum Exam - Vagina: normal appearance of the vagina Speculum Exam - Cervix: normal appearance of the cervix Back/Spine/Pelvis: Back: no CVA tenderness Skin: General skin exam: normal color Rashes: no rashes Wounds: no wounds Neuro: General: patient oriented x3 Cranial nerves: Yes Nystagmus not present Speech: normal speech Extrem: General: normal to inspection Psych: Appearance: grossly normal Mental Status: mental status grossly normal Affect: normal affect Attitude: cooperative Course Vital Signs Vital signs: Vital Signs Temperature 97.3 F L 09/04/24 21:32 Pulse Rate 84 09/04/24 21:32 Respiratory Rate 18 09/04/24 21:32 Blood Pressure 209/124 H 09/04/24 21:32 Pulse Oximetry 100 09/04/24 21:32 Oxygen Delivery Room Air 09/04/24 21:32 Temperature 97.3 F L 09/04/24 21:32 Pulse Rate 84 09/04/24 21:32 Respiratory Rate 18 09/04/24 21:32 Blood Pressure 170/103 H 09/04/24 23:00 Pulse Oximetry 97 09/04/24 23:01 Oxygen Delivery Nasal Cannula 09/04/24 22:10 Oxygen Flow Rate 2 09/04/24 22:10 MDM - Female Genitourinary MDM Narrative Medical decision making narrative: Patient most likely has kidney stones as his feel like it did last time she had kidney stones. She probably has bilateral kidney stones as she has flank pain on the left and right sides. He has more flank pain on the left side than the right side however. Will do a CT scan without contrast of the abdomen pelvis to check for stones. CT scan showed multiple stones on the left and right side. It showed a 4 mm stone on the right side nonobstructing. Also showed a 6 mm stone left side that is nonobstructing with also some minor hydronephrosis. Will start her on Flomax now here and also give her Toradol for home to take for the next 3 days with a Flomax so she could have more chance of passing the stones the X 3 days. Differential Diagnosis Differential diagnosis: Likely urinary tract infection, trichomoniasis and other ( Kidney stones) Medical Records Attestation: I reviewed the patient's medical records. Lab Data Attestation: I reviewed the patient's lab results. 09/04/24 21:53 09/04/24 21:53 Labs: Lab Results 09/04/24 Range/Units 21:53 WBC 10.7 (4.8-10.8) K/mm3 RBC 4.86 (4.20-5.40) M/mm3 Hgb 14.3 (12.0-15.0) g/dL Hct 43.6 (35.0-49.0) % MCV 89.7 (78.0-102.0) fL MCH 29.4 (27.0-31.0) pg MCHC 32.8 (32-36) g/dL RDW 12.5 (11.6-14.4) % Plt Count 384 (150-420) K/mm3 MPV 9.6 (9.2-11.8) fl Immature Gran % (Auto) 0.3 H (0.0-0.0) % Neut % (Auto) 63.4 (50.0-70.0) % Lymph % (Auto) 28.4 (18.0-42.0) % [place] % (Auto) 6.2 (2.0-11.0) % Eos % (Auto) 1.0 (1.0-6.0) % Baso % (Auto) 0.7 (0.0-1.0) % Lymph # (Auto) 3.03 (1.10-4.50) K/mm3 [place] # (Auto) 0.66 (0.10-0.90) K/mm3 Eos # (Auto) 0.11 (0.02-0.50) K/mm3 Baso # (Auto) 0.08 (0.00-0.10) K/mm3 Abs Immat Gran (auto) 0.03 H (0.00-0.00) K/mm3 Absolute Neuts (auto) 6.76 (1.70-7.20) K/mm3 Absolute Nucleated RBC 0.00 (0.00-0.00) K/mm3 Nucleated RBC % 0.0 (0-0.0) % Sodium 141 (136-145) mmol/L Potassium 3.2 L (3.5-5.1) mmol/L Chloride 102 (98-108) mmol/L Carbon Dioxide 27 (21-32) mmol/L Anion Gap 12 (4-12) mmol/L BUN 12 (7-18) mg/dL Creatinine 0.98 (0.55-1.02) mg/dL Estim Creat Clear Calc 58 ml/min Estimated GFR > 60 (59 - ) Glucose 99 (70-99) mg/dL Calculated Osmolality 291 (285-295) mOsm/kg Lactic Acid 2.6 H (0.4-2.0) mmol/L Calcium 9.0 (8.5-10.1) mg/dL Total Bilirubin 0.5 (0.00-1.00) mg/dL AST 16 (15-37) U/L ALT 29 (14-59) U/L Alkaline Phosphatase 103 (46-116) U/L Total Protein 7.3 (6.4-8.2) g/dL Albumin 3.6 (3.4-5.0) g/dL Lipase 27 (16-77) U/L ABG Data Attestation: I personally reviewed and interpreted this ABG as follows: Imaging Data Attestation: I personally reviewed and interpreted this imaging study as follows: Discharge Plan Discharge Clinical Impression: Kidney stones Patient Disposition: Home, Self-Care Condition: Stable Instructions: Kidney Stones (ED), Dysuria (ED) Additional Instructions: take Flomax as prescribed daily. Also takes overall 3 times a day for the next 3 days. If gets to 2 weeks and is still having same symptoms and not passed stones is time to follow with urology and get lithotripsy done and/or get the stones surgically removed. Patient Language: Bulgarian Prescriptions: New tamsulosin [Flomax] 0.4 mg capsule 0.4 mg PO DAILY Qty: 30 0RF ketorolac 10 mg tablet 10 mg PO Q8H PRN (Reason: pain) Qty: 20 0RF Rx Instructions: maximum total duration of 5 days from all oral, intranasal, or parenteral formulations No Action omeprazole 40 mg capsule,delayed release(DR/EC) 40 mg BID Trintellix 10 mg tablet 20 mg PO DAILY multivitamin with iron 1 tablet PO DAILY gabapentin 400 mg capsule 300 mg PO TID ketorolac 10 mg tablet 10 mg PO PRN PRN (Reason: Pain) alum-mag hydroxide-simeth [Maalox Maximum Strength] 400-400-40 mg/5 mL Suspension See Rx Instructions .ROUTE .COMPLEX PRN (Reason: Acid Reflux) Rx Instructions: see package insert mirtazapine 7.5 mg tablet 7.5 mg PO HS cyclobenzaprine 10 mg tablet 10 mg PO TID Qty: 12 0RF hydrocodone-acetaminophen 5-325 mg tablet 1 tablet PO Q6H Qty: 12 0RF Follow-up/Referrals: Juanita,MD Reilly [Primary Care Provider] - Time of Disposition: 00:50
[2024-09-05] MEDS: TAMSULOSIN HCL 0.4 MG CAPSULE PO (00:32)
[2024-09-05] MEDS: HYDROcodone/acetaminophen (*CRX) 5-325 MG TABLET 1 TAB PO (00:38)
[2024-09-05 01:19] LABS: Add Urine Microscopic? YES; Appearance Urine Clear (Clear); Bilirubin Urine Negative (Negative); Blood Urine 3+ (Negative); Color Urine Light Yellow (Yellow); Glucose Urine UA Negative (Negative); Ketones Urine Negative (Negative); Leukocyte Esterase Ur Negative LEU/UL (Negative); Nitrate Urine Negative (Negative); Protein Urine 1+ (Negative); Specific Grav Ur 1.025 (1.010-1.020); Urobilinogen Urine 0.2 mg/dL (0.2-1.0)
[2024-09-05 01:58] LABS: RBC Urine >100 /hpf (0-2); Squamous Epithelial Cell Urine Few /hpf (Few)
== END 2024-09-05 01:17 | disposition home or self-care (01) ==
PROVIDERS: Emergency Provider Family Medicine; PCP Family Medicine
DX: N20.0 Calculus of kidney (principal); I10 Essential (primary) hypertension; F17.290 Nicotine dependence, other tobacco product, uncomplicated
CPT/HCPCS: 36415; 74176; 80053; 81001; 83605; 83690; 85025; 96361; 96374; 96375; 96376; 99284; A9270; J1171; J2405; J7030

== ENCOUNTER 2024-09-14 16:19 | Outpatient (CLI) | payer OTHER, SELFPAY ==
--- OUTSIDE RECORDS SUMMARY | 2024-09-14 17:04 | XMS_ITS | Encounter Summary ---
Author Organization [facility] Address [address] [place] [address] Phone Care Team Providers Care Federal Judge Name Role Phone Unknown, Notinfile Primary Care Provider Unavail able Gray Brock MD Primary Care Provider [phone] Unknown, Notinfile Primary Care Provider Unavail able Gray Brock MD Primary Care Provider [phone] Gray Brock MD Primary Care Provider [phone] Gray Brock MD Primary Care Provider [phone] Unknown, Notinfile Primary Care Provider Unavail able Unknown, Notinfile Primary Care Provider Unavail able Gray Brock MD Primary Care Provider [phone] Unknown, Notinfile Primary Care Provider Unavail able Unknown, Notinfile Primary Care Provider Unavail able Gray Brock MD Primary Care Provider [phone] Unknown, Notinfile Primary Care Provider Unavail able Gray Brock MD Primary Care Provider [phone] Reilly Grant MD Primary Care Provider [phone] Encounter Details Date Type Department Care Team (Latest Contact Info) Description 11/19/2016 Orders Only [facility] CONVERSION Scanning, Provider Social History Tobacco Use Types Packs/Day Years Used Date Smoking Tobacco: Never Assessed Comments Unknown Sex and Gender Information Value Date Recorded Sex Assigned at Not on file Legal Sex Female 12:18 AM SUPPORTIVE EMPLOYMENT CASE MANAGER Gender Identity Not on file Sexual Orientation [...] on filedocumented in this encounter Care Teams Federal Judge Relationship Specialty Start Date End Date Unknown, Notinfile PCP - General 11/19/16 11/24/16 Gray Brock MD [address] [place] [address] PCP - General 11/25/16 11/25/16 Unknown, Notinfile PCP - General 11/26/16 12/22/16 Gray Brock MD [address] [place] [address] PCP - General 12/23/16 12/23/16 Gray Brock MD [address] [place] [address] PCP - General 12/24/16 01/07/17 Gray Brock MD [address] [place] [address] PCP - General 01/08/17 01/08/17 Unknown, Notinfile PCP - General 01/09/17 01/28/17 Unknown, Notinfile PCP - General 01/29/17 01/29/17 Gray Brock MD [address] [place] [address] PCP - General 01/30/17 02/13/17 Unknown, Notinfile PCP - General 02/14/17 02/16/17 Unknown, Notinfile PCP - General 02/17/17 02/18/17 Gray Brock MD [address] [place] [address] PCP - General 02/19/17 03/10/17 Unknown, Notinfile PCP - General 03/11/17 03/24/22 Gray Brock MD [address] [place] [address] PCP - General Family Practice 03/25/22 08/01/22 Reilly Grant MD [address] [place] [address] PCP - General Family Medicine 08/02/22 documented as of this encounter
--- OUTSIDE RECORDS SUMMARY | 2024-09-14 17:04 | XMS_ITS | Encounter Summary ---
Author Organization [facility] Address [facility] [place] [address] Care Team Providers Care Buckle Strap Drum Operator Name Role Phone Gray Brock MD Primary Care Provider [phone] Ruben Mg MD Unavailable Unavailable Lincoln Evans MD Unavailable [phone] Reilly Grant MD Primary Care Provider Mónica Gaffney MD Unavailable Encounter Details Date Type Department Care Team (Late Contact Info) Description 11/14/2018 Abstract [facility] CONVERSION [address] [place] [address] , Generic ConversionMD Social History Tobacco Use Types Packs/Day Years Used Date Smoking Tobacco: Never Assessed Comments Unknown Sex and Gender Information Value Date Recorded Sex Assigned at Female 07/07/2024 3:15 PM PRESSROOM WORKER Legal Sex Female 5:45 PM PRESSROOM WORKER Gender Identity Female 07/10/2021 6:40 AM PRESSROOM WORKER Sexual Orientation Not on file documented as of this encounter Plan of Treatment Upcoming Encounters Date Type Department Care Team (Late Contact Info) Description 03/14/2025 9:30 AM CDT Office Visit [facility] [address] [place] [id number] Mónica Gaffney MD [address] [place] [address] documented as of this encounter Visit Diagnoses Not on filedocumented in this encounter Additional Health Concerns Infection Onset Date Last Indicated Resolved Time COVID-19 Rule Out 03/28/2020 03/28/202003/31/2020 1:34 PM CDT COVID-19 Rule Out 09/24/2020 09/24/2020 09/24/2020 8:58 AM CDT COVID-19 Rule Out 06/15/2021 06/15/2021 06/15/2021 9:55 AM PRESSROOM WORKER COVID-19 Rule Out 07/10/2021 07/10/2021 07/10/2021 1:47 PM PRESSROOM WORKER documented as of this encounter Care Teams Buckle Strap Drum Operator Relationship Specialty Start Date End Date Gray Brock MD [address] [place] [address] PCP - General FAMILY PRACTICE 12/15/18 04/02/22 Reilly Grant MD [address] [place] [phone] PCP - General FAMILY PRACTICE 04/03/22 Ruben Mg MD [address] [place] [address] Consulting Physician INTERVENTIONAL CARDIOLOGY 11/29/20 Lincoln Evans MD [address] [place] [address] Consulting Physician CLINICAL CARDIAC ELECTROPHYSIOLOGY 03/22/22 Mónica Gaffney MD [address] [place] [address] Consulting Physician CARDIOVASCULAR DISEASE 02/25/23 documented as of this encounter
--- OUTSIDE RECORDS SUMMARY | 2024-09-14 17:04 | XMS_ITS | Encounter Summary ---
Author Organization [facility] Address [address] [place] [address] Care Team Providers Care Analytical Strategist Name Role Phone Gray Brock MD Primary Care Provider [phone] Ruben Mg MD Unavailable Unavailable Lincoln Evans MD Unavailable [phone] Reilly Grant MD Primary Care Provider Mónica Gaffney MD Unavailable Encounter Details Date Type Department Care Team (Late st Contact Info) Description 03/24/2022 Herzio Message Enc [facility] [place] [address] Ruben Mg MD Ekg Social [...] Sex Assigned at Female 07/07/2024 3:15 PM TELEMARKETING REPRESENTATIVE Legal Sex Female 5:45 PM TELEMARKETING REPRESENTATIVE Gender Identity Female 07/10/2021 6:40 AM TELEMARKETING REPRESENTATIVE Sexual Orientation Not on file Occupation Industry [...] Care Team (Late st Contact Info) Description 03/14/2025 9:30 AM CDT Office Visit [facility] [address] [place] [address] Mónica Gaffney MD [address] [place] [address] documented as of this encounter Visit Diagnoses Not on filedocumented in this encounter Care Teams Analytical Strategist Relationship Specialty Start Date End Date Gray Brock MD [address] [place] [address] PCP - General FAMILY PRACTICE 12/15/18 04/02/22 Reilly Grant MD [address] [place] [address] PCP - General FAMILY PRACTICE 04/03/22 Ruben Mg MD [address] [facility] [place] [address] Consulting Physician INTERVENTIONAL CARDIOLOGY 11/29/20 Lincoln Evans MD [address] [place] [address] Consulting Physician CLINICAL CARDIAC ELECTROPHYSIOLOGY 03/22/22 Mónica Gaffney MD [address] [place] [address] Consulting Physician CARDIOVASCULAR DISEASE 02/25/23 documented as of this encounter
--- OUTSIDE RECORDS SUMMARY | 2024-09-14 17:04 | XMS_ITS | Encounter Summary ---
Author Organization [facility] Address [facility] [place] [address] Care Team Providers Care Medical Assistant Cardiology Name Role Phone Gray Brock MD Primary Care Provider Ruben Mg MD Unavailable Unavailable Lincoln Evans MD Unavailable [phone] Reilly Grant MD Primary Care Provider Mónica Gaffney MD Unavailable Encounter Details Date Type Department Care Team (Late st Contact Info) Description 03/25/2022 Desktop Genetics Message [facility]-[address] [place] [address] Lincoln Evans MD [address] [place], [place] [address] Ekg Social History Tobacco Use Types Packs/Day [...] Sex Assigned at Female 07/07/2024 3:15 PM FREEZER UNLOADER Legal Sex Female 5:45 PM FREEZER UNLOADER Gender Identity Female 07/10/2021 6:40 AM FREEZER UNLOADER Sexual Orientation Not on file Occupation Industry [...] Description 03/14/2025 9:30 AM CDT [facility] [address] [place] [address] Mónica Gaffney MD [address] [place] [address] documented as of this encounter Visit Diagnoses Not on filedocumented in this encounter Care Teams Medical Assistant Cardiology Relationship Specialty Start Date End Date Gray Brock MD [address] [place] [address] PCP - General FAMILY PRACTICE 12/15/18 04/02/22 Reilly Grant MD [address] [place] [phone] PCP - General FAMILY PRACTICE 04/03/22 [place] [address] [place] [address] [place] [address] Consulting Physician INTERVENTIONAL CARDIOLOGY 11/29/20 Lincoln Evans MD [address] [place] [phone] Consulting Physician CLINICAL CARDIAC ELECTROPHYSIOLOGY 03/22/22 Mónica Gaffney MD [address] [place] [address] Consulting Physician CARDIOVASCULAR DISEASE 02/25/23 documented as of this encounter
--- OUTSIDE RECORDS SUMMARY | 2024-09-14 17:04 | XMS_ITS | Encounter Summary ---
Author Organization [facility] Address [address] [place] [address] Phone Care Team Providers Care Hat Conditioner Name Role Phone Reilly Grant MD Primary [...] on file Legal Sex Female 12:18 AM SENIOR ASSOCIATE Gender Identity Not on file Sexual Orientation [...] on filedocumented in this encounter Care Teams Hat Conditioner Relationship Specialty Start Date End Date Reilly Grant MD PCP - General Family Medicine 08/02/22 documented as of this encounter
--- OUTSIDE RECORDS SUMMARY | 2024-09-14 17:04 | XMS_ITS | Encounter Summary ---
Author Organization [facility] Address [facility] [place] [address] Care Team Providers Care Concrete Form Setter And Finisher Name Role Phone Gray Brock MD Primary Care Provider Ruben Mg MD Unavailable Unavailable Lincoln Evans MD Unavailable [phone] Reilly Grant MD Primary Care Provider [phone] Mónica Gaffney MD Unavailable Encounter Details Date Type Department Care Team (Late st Contact Info) Description 07/09/2021 LiveStub Message Enc [facility] [address] [place] [address] Kelsi Driver, JOSE, FIELD FOREMAN-C [address] [facility] [address] [place] [address] Labs Social History Tobacco Use [...] Sex Assigned at Female 07/07/2024 3:15 PM SENIOR MOBILE DEVELOPER Legal Sex Female 5:45 PM SENIOR MOBILE DEVELOPER Gender Identity Female 07/10/2021 6:40 AM SENIOR MOBILE DEVELOPER Sexual Orientation Not on file Occupation Industry Job Start Date Job End Date Not on file Not on file Not on file Not on file COVID-19 Exposure Response Date Recorded In the last month, have you been in contact with someone who was confirmed or suspected to have Coronavirus / COVID-19? No / Unsure 07/10/2021 5:58 AM SENIOR MOBILE DEVELOPER documented as of this encounter Functional Status [...] Status No 12/18/2018 9:00 AM CDT Tianna Tafoya, RN Active documented as of this encounter Mental Status * Because of a physical, mental, or emotional condition, do you have serious difficulty concentrating, remembering, or making decisions? Answer Entry Date Author Status No 12/18/2018 9:00 AM CDT Tianna Tafoya, RN Active documented in this encounter Plan of Treatment Upcoming Encounters Date Type Department Care Team (Late st Contact Info) Description 03/14/2025 9:30 AM CDT Office Visit [facility] [place] [address] Mónica Gaffney MD 9 [place] [address] documented as of this encounter Visit Diagnoses Not on filedocumented in this encounter Additional Health Concerns Infection Onset Date Last Indicated Resolved Time COVID-19 Rule Out 07/10/2021 07/10/2021 07/10/2021 1:47 PM SENIOR MOBILE DEVELOPER documented as of this encounter Care Teams Concrete Form Setter And Finisher Relationship Specialty Start Date End Date Gray Brock MD [address] [place] [address] PCP - General FAMILY PRACTICE 12/15/18 04/02/22 Reilly Grant MD [address] [place] [phone] PCP - General FAMILY PRACTICE 04/03/22 Ruben Mg MD [address] [place] [address] Consulting Physician INTERVENTIONAL CARDIOLOGY 11/29/20 Lincoln Evans MD [address] [place] [address] Consulting Physician CLINICAL CARDIAC ELECTROPHYSIOLOGY 03/22/22 Mónica Gaffney MD [address] [place] [address] Consulting Physician CARDIOVASCULAR DISEASE 02/25/23 documented as of this encounter
--- OUTSIDE RECORDS SUMMARY | 2024-09-14 17:04 | XMS_ITS ---
Author Organization Unknown Address [address] [place] [phone] Phone Care Team Providers Care Completion Supervisor Name Role Phone HORTENSIARONALD STEFANO BARNETTP Attending [...] Code Syst em Smoking History Former smoker [id number] SNOMED CT Sex Female Assessment You had [...] SCREENING FOR MALIGNANT NEOPLASM OF CERVIX active [id number] SNOMED-CT Plan of Treatment Split Night, CPAP/BIPAP/ASV (82726) Encounters Encounter Diagnosis Start Date Code Code Sys tem Sleep apnea 04/28/2023 [id number] SNOMED-CT Personal Care Team Section Performer Name Performer Role Active Date Inactive Da te DEEP FLORES PCP - Primary care physician 2022-09-10 DEEP FLORES PCP - Primary care physician 2022-09-10
--- OUTSIDE RECORDS SUMMARY | 2024-09-14 17:04 | XMS_ITS | Encounter Summary ---
Author Organization [facility] Address [address] [place] [address] Care Team Providers Care Exam Proctor Name Role Phone Gray Brock MD Primary Care Provider [phone] Ruben Mg MD Unavailable Unavailable Lincoln Evans MD Unavailable [phone] Reilly Grant MD Primary Care Provider Mónica Gaffney MD Unavailable Encounter Details Date Type Department Care Team (Late st Contact Info) Description 02/25/2022 [employer] Message Enc [facility] [place] [address] Ruben Mg MD Ekg Social [...] Sex Assigned at Female 07/07/2024 3:15 PM SAMPLE PREPARATION SUPERVISOR Legal Sex Female 5:45 PM SAMPLE PREPARATION SUPERVISOR Gender Identity Female 07/10/2021 6:40 AM SAMPLE PREPARATION SUPERVISOR Sexual Orientation Not on file Occupation Industry [...] Description 03/14/2025 9:30 AM CDT Office Visit [facility] [address] [place] [address] Mónica Gaffney MD [address] [place] [address] documented as of this encounter Visit Diagnoses Not on filedocumented in this encounter Care Teams Exam Proctor Relationship Specialty Start Date End Date Gray Brock MD [address] [place] [address] PCP - General FAMILY PRACTICE 12/15/18 04/02/22 Reilly Grant MD [address] [place] [address] PCP - General FAMILY PRACTICE 04/03/22 Ruben Mg MD 12[address] [place] [address] Consulting Physician INTERVENTIONAL CARDIOLOGY 11/29/20 Lincoln Evans MD [address] [place] [address] Consulting Physician CLINICAL CARDIAC ELECTROPHYSIOLOGY 03/22/22 Mónica Gaffney MD 9 [place] [address] Consulting Physician CARDIOVASCULAR DISEASE 02/25/23 documented as of this encounter
--- OUTSIDE RECORDS SUMMARY | 2024-09-14 17:04 | XMS_ITS | Clinical Summary ---
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 Family history of premature CAD 03/02/2021 Palpitations 03/02/2021 Resolved Problems Problem Noted Date Diagnosed Date Resolved Date Costochondritis 09/21/2021 02/27/2022 Other chest pain 12/28/2020 02/27/2022 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 (CMS/HCC HHS/HCC) 12/28/2020 03/02/2021 Right wrist tendonitis 03/02/202002/27 Assessment & Plan (03/02/2020 3:47 PM CDT): ECU tendonitis Abdominal pain 01/02/2019 02/27/2022 Encounters Date Type Department Care Team Description 09/07/2024 3:46 PM CDT - 09/07/2024 11:59 PM CDT Hospital Encounter [facility] [address] [place] [id number] Steve Jay NP Discharge Disposition: Home or Self Care (Routine Discharge) 09/07/2024 Travel 07/19/2024 7:55 AM HARDWARE DESIGNER - 07/19/2024 11:59 PM HARDWARE DESIGNER Hospital Encounter [facility] [address] [place] [id number] Jessica Clark, DO Discharge Disposition: Home or Self Care (Routine Discharge) 07/19/2024 Travel 07/07/2024 2:49 PM HARDWARE DESIGNER - 07/07/2024 4:59 PM [facility] Emergency [facility] [address] [place] [id number] Yuridia Ledesma MD Abdominal Pain; Urinary Symptoms [...] Sex Assigned at Female 07/07/2024 3:15 PM HARDWARE DESIGNER Legal Sex Female 5:45 PM HARDWARE DESIGNER Gender Identity Female 07/10/2021 6:40 AM HARDWARE DESIGNER Sexual Orientation Not on file Occupation Industry Job Start Date Job End Date Not on file Not on file Not on file Not on file Last Filed Vital Signs Vital Sign Reading Time Taken Comments Blood Pressure 140/96 07/07/2024 4:30 PM HARDWARE DESIGNER Pulse 86 07/07/2024 2:59 PM HARDWARE DESIGNER Temperature 37.1 C (98.8 F) 07/07/2024 2:59 PM HARDWARE DESIGNER Respiratory Rate 18 07/07/2024 2:59 PM HARDWARE DESIGNER Oxygen Saturation 95% 07/07/2024 4:45 PM HARDWARE DESIGNER Inhaled Oxygen Concentration - - Weight 69.6 kg (153 lb 8 oz) 07/07/2024 2:59 PM HARDWARE DESIGNER Height 152.4 cm (5') 07/07/2024 2:59 PM HARDWARE DESIGNER Body Mass Index 29.98 07/07/2024 2:59 PM HARDWARE DESIGNER Plan of Treatment Upcoming Encounters Date Type Department Care Team (Late st Contact Info) Description 03/14/2025 9:30 AM CDT [facility] [address] [place] [address] Mónica Gaffney MD [address] [place] [address] Health Maintenance Due Date Last Done Comments Annual Physical 1985 Hepatitis C 2000 DTaP, Tdap and Td Vaccines ( 1 - Tdap) 2001 Hepatitis B Vaccines (1 of 3 - 19+ 3-dose series) 2001 COVID-19 Vaccine (3 2023-2 5 season) 2024 12/28/2020, 12/07/2020 Cervical Cancer [...] Name Priority Date/Time Associated Diagnosis Comments US PELVIC NON OB COMP TA+TV Routine 09/07/2024 4:39 PM CDT Pelvic and perineal pain US RETROPERITONEAL COMP Routine 07/19/19 25 9:16 AM HARDWARE DESIGNER Kidney stone URINE BACTERIA CULTURE STAT 3:30 PM HARDWARE DESIGNER HC URINALYSIS AUTO W/MICRO STAT 07/07/2024 3:30 PM HARDWARE DESIGNER MG SCREENING W AFTAB KIAN DIGI Routine 10/09/2023 7:48 AM CDT Encounter for screening mammogram for malignant neoplasm of breast HUMAN PAPILLOMAVIRUS, HIGH-RISK TYPES Routine 10/29/2021 12:00 PM CDT CYTOPATH CERV/VAG THIN LAYER Routine 10/29/2021 8:26 AM CDT from Last 3 Months or Most Recently Relevant to Health Maintenance Results * US PELVIC NON OB COMP TA+TV (09/07/2024 4:39 PM CDT) Anatomical Region Laterality Modality Pelvis Ultrasound 09/10/2024 8:53 AM CDT Impressions 09/10/2024 8:56 AM CDT IMPRESSION: 1. Interval hysterectomy. 2. Small bilateral simple ovarian cysts, likely physiologic. Ordered By: STEVE JAY Interpreted By: Gregory Hahn MD, 09/10/2024 8:53 AM Narrative 09/10/2024 8:56 AM CDT [address] [place] [id number] Examination: Transabdominal and transvaginal pelvic ultrasound. Exam time: 1553 hours. Clinical history: Pelvic pain. Prior hysterectomy. Comparison: 09/23/2022 Technique: Grayscale and color Doppler images including spectral analysis. Endovaginal scanning was performed to better visualize the adnexa. Findings: The uterus is no longer identified, compatible with the history. Both ovaries are identified. The right ovary measures 3.2 cm in greatest dimension. The left ovary measures 3.9 cm in greatest dimension. Flow to both ovaries is documented on color Doppler with normal appearing spectra. A few follicles are present. There are also bilateral simple ovarian cysts measuring 2.1 cm in greatest dimension on the right and 3 cm in greatest dimension on the left, likely physiologic. No solid adnexal mass is seen. There is no free fluid. Procedure Note Gregory Hahn MD - 09/10/[address] [place] [id number] Examination: Transabdominal and transvaginal pelvic ultrasound. Exam time: 1553 hours. Clinical history: Pelvic pain. Prior hysterectomy. Comparison: 09/23/2022 Technique: Grayscale and color Doppler images including spectral analysis.Endovaginal scanning was performed to better visualize the adnexa. Findings: The uterus is no longer identified, compatible with the history.Both ovaries are identified. The right ovary measures 3.2 cm in greatestdimension. The left ovary measures 3.9 cm in greatest dimension. Flow toboth ovaries is documented on color Doppler with normal appearing spectra.A few follicles are present. There are also bilateral simple ovarian cystsmeasuring 2.1 cm in greatest dimension on the right and 3 cm in greatestdimension on the left, likely physiologic. No solid adnexal mass is seen.There is no free fluid. IMPRESSION: 1. Interval hysterectomy. 2. Small bilateral simple ovarian cysts, likely physiologic. Ordered By: STEVE JAY Interpreted By: Gregory Hahn MD, 09/10/2024 8:53 AM us Steve Jay INSIGHTS STRATEGIST ULTRASOUND Final Result * US RETROPERITONEAL COMP (07/19/2024 9:16 AM HARDWARE DESIGNER) Anatomical Region Laterality Modality Abdomen Ultrasound 07/19/2024 1:03 PM HARDWARE DESIGNER Impressions 07/19/2024 1:05 PM HARDWARE DESIGNER IMPRESSION: 1) Focal parenchymal scarring right kidney similar to previous study. 2. Echogenic foci consistent with retained small nonobstructing stones lower pole both kidneys similar to previous study. No evidence of hydronephrosis. 3. Small bladder postvoid residual. Ordered By: JESSICA CLARK Interpreted By: Adrian Joseph MD, 07/19/2024 1:03 PM Narrative 07/19/2024 1:05 PM HARDWARE DESIGNER [address] [place] [id number] Examination: US RETROPERITONEAL COMP Exam time: 07/19/2024 [...] Procedure Note Adrian Joseph MD - 07/19/2024 [place] [id number] [facility] [place] [id number] Examination: US RETROPERITONEAL COMP Exam time: 07/19/2024 [...] Joseph MD, 07/19/2024 1:03 PM us Jessica Singh Clark DO ULTRASOUND Final Resu lt * (ABNORMAL) URINALYSIS (07/07/2024 3:30 PM HARDWARE DESIGNER) COLOR (U) AMRIK 07/07/2024 4:07 PM [facility] TRANSPARENCY CLEAR 07/07/2024 4:07 PM [facility] SPECIFIC GRAVITY (U) 1.010 1.000 - 1.025 07/07/2024 4:07 PM [facility] U PH 6.5 5.0 - 8.0 07/07/2024 4:07 PM [facility] LEUKOCYTES (U) 3+(A) NEGATIVE 07/07/2024 4:07 PM [facility] NITRITES POSITIVE(A) NEGATIVE 07/07/2024 4:07 PM [facility] PROTEIN RANDOM (U) 1+(A) NEGATIVE 07/07/2024 4:07 PM [facility] GLUCOSE (U) TRACE(A) NEGATIVE 07/07/2024 4:07 PM [facility] KETONES MG/DL (U) NEGATIVE NEGATIVE 07/07/2024 4:07 PM [facility] UROBILINOGEN 1.0(H) <1.0 EU/DL 07/07/2024 4:07 PM [facility] BILIRUBIN (U) NEGATIVE NEGATIVE 07/07/2024 4:07 PM [facility] BLOOD (U) 3+(A) NEGATIVE 07/07/2024 4:07 PM [facility] WBC/HPF 50-100(A) 0 - 5 /HPF 07/07/2024 4:07 PM [facility] RBC/HPF 1+(A) 0 - 5 /HPF 07/07/2024 4:07 PM [facility] EPI/LPF 0-5 /LPF 07/07/2024 4:07 PM [facility] BACTERIA (U) 2+ /HPF 07/07/2024 4:07 PM HARDWARE DESIGNER [facility] URINE SPECIMEN OBTAINED BY CLEAN CATCH PROCEDURE / Unknown 07/07/2024 3:30 PM HARDWARE DESIGNER Yuridia Ledesma MD URINE ORDERABLES Final Resu lt [facility] [address] [place] [address], * CULTURE URINE (07/07/2024 3:30 PM HARDWARE DESIGNER) SPEC DESCRIPTION URINE CLEAN CATCH 07/07/2024 3:33 PM HARDWARE DESIGNER [facility] SPECIAL REQUESTS NO SPECIAL REQUEST 07/07/2024 3:33 PM HARDWARE DESIGNER [facility] CULTURE RESULT >25,000 TO 50,000 CFU/mL ESCHERICHIA COLI 07/10/2024 11:34 AM HARDWARE DESIGNER [facility] URINE SPECIMEN OBTAINED BY CLEAN CATCH PROCEDURE / Unknown 07/07/2024 3:30 PM HARDWARE DESIGNER 07/07/2024 7:27 PM HARDWARE DESIGNER Narrative Organism Antibiotic Method Susceptibility Escherichia coli [...] Sensitive Yuridia Ledesma MD MICROBIOLOGY - GENERAL ORDNova CAMPUZANO Final Result Performing Organization Address City/[facility]/ZIP Co de Phone Number [facility] [address] [place] [address], [place] [phone] [facility] [address] [place] [address], [place] [phone] * MG SCREENING W AFTABGene CASILLASI (10/09/2023 7:48 AM CDT) Anatomical Region Laterality Modality Breast Bilateral Mammography 10/09/2023 3:43 PM CDT Impressions 10/09/2023 3:44 PM CDT IMPRESSION: No suspicious change since the previous exams. Recommendation: 1: Routine Screening Bilateral in 1 Year Assessment: ACR BI-RADS 2 - BENIGN FINDING(S) Ordered By: EDUIN OROZCO Interpreted By: Gregory Hahn MD, 10/09/2023 3:43 [...] in one year would seem adequate. Eduin Orozco AR MAMMO Final Result * HUMAN PAPILLOMAVIRUS, HIGH-RISK TYPES (10/29/2021 12:00 PM CDT) SPECIMEN CERVICAL/END OCERVICAL 10/31/2021 9:56 AM CDT [facility] HPV DNA HIGH RISK NEGATIVE NEGATIVE 10/31/2021 6:23 PM CDT [facility] Comment:SEE CYTOLOGY REPORT 10/29/2021 12:0 0 PM CDT Reimgio Young MD PATHOLOGY/CYTOLOGY ORDERABLES Final Result [facility] [address] [place] [address], * Cytopath Cerv/Vag Thin Layer (10/29/2021 8:26 AM CDT) THIN PREP PAP [facility] [address] [place] [address] Department of Pathology Pathology Report CERVICAL/VAGINAL PAP SMEAR REPORT Name: RACHELE DESHPANDE Age: 11 1980 (Age: 41) Location: [facility] Sex: F Collected Date: 10/29/2021 [facility] #: [id number] Date Received: 10/31/2021 Date Reported: 11/01/2021 Provider: [...] (ASCP) CLINICAL HISTORY Z12.4 NEXPLANON PAP AND DRIVING INSTRUCTOR SURGICAL HISTORY-UNKNOWN ThinPrep Pap Test with screening [...] is not effective in detecting cervical adenocarcinoma. [facility] 10/29/2021 8:26 AM CDT 10/31/2021 8:26 AM CDT Comment:CERVICAL/ENDOCERVICA L us Remigio Young MD PATHOLOGY/CYTOLOGY ORDERABLES Final Result [facility] [address] [place] [address], from Last 3 Months or Most Recently Relevant to Health Maintenance Insurance [facility] Advance Directives * Full Code (Latest Code Status on File) Date Activated Date Inactivated Comments 12/17/2018 3:01 PM 12/18/2018 7:12 PM Care Teams Storage Battery Inspector Relationship Specialty Start Date End Date Reilly Grant MD [address] [place] [phone] PCP - General FAMILY PRACTICE 04/03/22 Lincoln Evans MD [address] [place] [address] Consulting Physician CLINICAL CARDIAC ELECTROPHYSIOLOGY 03/22/22 Mónica Gaffney MD [address] [place] [address] Consulting Physician CARDIOVASCULAR DISEASE 02/25/23
--- OUTSIDE RECORDS SUMMARY | 2024-09-14 17:04 | XMS_ITS | Encounter Summary ---
Author Organization [facility] Address [facility] [place] [address] Care Team Providers Care Head Of History Name Role Phone Gray Brock MD Primary Care Provider [phone] Ruben Mg MD Unavailable Unavailable Lincoln Evans MD Unavailable [phone] Reilly Grant MD Primary Care Provider Mónica Gaffney MD Unavailable Encounter Details Date Type Department Care Team (Late st Contact Info) Description 03/27/2021 Signa[employer] Message [facility] Patient Accounts [address] [place], [place] [id number] [facility] Provider Financial Assistance Application Social History [...] Sex Assigned at Female 07/07/2024 3:15 PM CALIBRATOR BAROMETERS Legal Sex Female 5:45 PM CALIBRATOR BAROMETERS Gender Identity Female 07/10/2021 6:40 AM CALIBRATOR BAROMETERS Sexual Orientation Not on file Occupation Industry [...] Description 03/14/2025 9:30 AM CDT Office Visit [facility] [address] [place] [address] Mónica Gaffney MD [address] [place] [address] documented as of this encounter Visit Diagnoses Not on filedocumented in this encounter Additional Health Concerns Infection Onset Date Last Indicated Resolved Time COVID-19 Rule Out 06/15/2021 06/15/2021 06/15/2021 9:55 AM CALIBRATOR BAROMETERS COVID-19 Rule Out 07/10/2021 07/10/2021 07/10/2021 1:47 PM CALIBRATOR BAROMETERS documented as of this encounter Care Teams Head Of History Relationship Specialty Start Date End Date Gray Brock MD [address] [place] [address] PCP - General FAMILY PRACTICE 12/15/18 04/02/22 Reilly Grant MD [address] [place] [phone] PCP - General FAMILY PRACTICE 04/03/22 Ruben Mg MD [address] [place] [address] Consulting Physician INTERVENTIONAL CARDIOLOGY 11/29/20 Lincoln Evans MD [address] [place] [address] Consulting Physician CLINICAL CARDIAC ELECTROPHYSIOLOGY 03/22/22 Mónica Gaffney MD [address] [place] [address] Consulting Physician CARDIOVASCULAR DISEASE 02/25/23 documented as of this encounter
--- OUTSIDE RECORDS SUMMARY | 2024-09-14 17:04 | XMS_ITS | Referral Summary ---
Author Organization [facility] Address [address] [place] [address] Care Team Providers Care Coding And Reimbursement Specialist Name Role Phone Reilly Grant MD Primary [...] on file Legal Sex Female 12:18 AM GO CART MECHANIC Gender Identity Not on file Sexual Orientation Not on file Last Filed Vital Signs Vital Sign Reading Time Taken Comments Blood Pressure 132/95 04/28/2023 1:23 PM GO CART MECHANIC Pulse 93 04/28/2023 1:23 PM GO CART MECHANIC Temperature 37 C (98.6 F) 04/28/2023 1:23 PM GO CART MECHANIC Respiratory Rate 14 03/19/2023 4:15 PM CDT Oxygen Saturation 95% 03/19/2023 4:15 PM CDT Inhaled Oxygen Concentration - - Weight 64.4 kg (142 lb) 04/28/2023 1:23 PM GO CART MECHANIC Height 152.4 cm (5') 04/28/2023 1:23 PM GO CART MECHANIC Body Mass Index 27.73 04/28/2023 1:23 PM GO CART MECHANIC Plan of Treatment Not on file Procedures [...] Female Attending MD: Peggy Santos M.D. Room: [facility] 9 Note Status: Finalized Procedure: Colonoscopy Indications: Chronic diarrhea, Hematochezia Referring MD: Reilly Grant M.D. Providers: Peggy Sanots M.D. Medicines: Monitored Anesthesia Care Complications: No [...] The scope was passed under direct vision.The [facility] [id number] endoscope was introducedthrough the anus and [...] On: 01/08/2023 8:44 AM Recognized by the [place] [employer] Gastrointestinal End[employer] for promoting quality in endoscopy Peggy Santos MD ENDOSCOPY PROCEDURES Phuong l Result from Last 3 Months or Most Recently Relevant to Health Maintenance Insurance AETNA [facility] AETNA BETTER [facility] [place] Advance Directives For more information, please contact: [phone] * Full Code (Latest Code Status on File) Date Activated Date Inactivated Comments 01/08/2023 7:29 AM 01/08/2023 1:47 PM Care Teams Coding And Reimbursement Specialist Relationship Specialty Start Date End Date Reilly Grant MD PCP - General Family Medicine 08/02/22
--- OUTSIDE RECORDS SUMMARY | 2024-09-14 17:04 | XMS_ITS | Clinical Summary ---
Author Organization [facility] Address [address] [place] [address] Care Team Providers Care Mold Carpenter Name Role Phone Reilly Grant MD Primary [...] on file Legal Sex Female 12:18 AM DIETARY WORKER Gender Identity Not on file Sexual Orientation Not on file Obstetrics History Last Filed Vital Signs Vital Sign Reading Time Taken Comments Blood Pressure 132/95 04/28/2023 1:23 PM DIETARY WORKER Pulse 93 04/28/2023 1:23 PM DIETARY WORKER Temperature 37 C (98.6 F) 04/28/2023 1:23 PM DIETARY WORKER Respiratory Rate 14 03/19/2023 4:15 PM CDT Oxygen Saturation 95% 03/19/2023 4:15 PM CDT Inhaled Oxygen Concentration - - Weight 64.4 kg (142 lb) 04/28/2023 1:23 PM DIETARY WORKER Height 152.4 cm (5') 04/28/2023 1:23 PM DIETARY WORKER Body Mass Index 27.73 04/28/2023 1:23 PM DIETARY WORKER Plan of Treatment Health Maintenance Due Date Last Done Comments Depression Screening 1982 Hepatitis C Screening 1982 DTaP/Tdap/Td Vaccine (1 - Tdap) 1993 Varicella Vaccines (1 of 2 - 13+ 2-dose series) 1995 Hepatitis B Screening 2000 Regular Well Visit/Exam 18-64 2000 Cervical Cancer Screening 10/29/2022 10/29/2021 Covid-19 Vaccine ( season) 2024 12/28/2020, 12/07/2020 Breast Cancer Screening-Mammogram 10/08/2024 10/09/2023, 10/09/2023, 09/05/2022, Additional history exists Influenza Vaccine (Season Ended) 2025 05/30/2020 Colon Cancer Screening-Colonoscopy 01/08/2030 01/08/2023 HPV Vaccines [...] Female Attending MD: Peggy Santos M.D. [facility] 9 Note Status: Finalized Procedure: [...] scope was passed under direct vision.The [facility] [id number] endoscope was introducedthrough the anus and [...] On: 01/08/2023 8:44 AM Recognized by the [place] [employer] Gastrointestinal Endoscopy for promoting quality in endoscopy Peggy Santos MD ENDOSCOPY PROCEDURES Phuong l Result from Last 3 Months or Most Recently Relevant to Health Maintenance Insurance A[facility]NA [facility] AETNA BETTER [facility] [place] Advance Directives For more information, please contact: [phone] * Full Code (Latest Code Status on File) Date Activated Date Inactivated Comments 01/08/2023 7:29 AM 01/08/2023 1:47 PM Care Teams Mold Carpenter Relationship Specialty Start Date End Date Reilly Grant MD PCP - General Family Medicine 08/02/22
--- OUTSIDE RECORDS SUMMARY | 2024-09-14 17:04 | XMS_ITS | Encounter Summary ---
Author Organization [facility] Address [facility] [place] [address] Care Team Providers Care Behavioral Health Technician Name Role Phone Gray Brock MD Primary Care Provider [phone] Ruben Mg MD Unavailable Unavailable Lincoln Evans MD Unavailable [phone] Reilly Grant MD Primary Care Provider Mónica Gaffney MD Unavailable Encounter Details Date Type Department Care Team (Late st Contact Info) Description 07/03/2021 [employer] Message Enc [facility] eld [address] [place] [address] Kelsi Driver, JOSE, REHABILITATION THERAPY AIDE-C [address] [facility] [address] [place] [address] Update Social History Tobacco Use [...] Sex Assigned at Female 07/07/2024 3:15 PM DATA SYSTEMS MANAGER Legal Sex Female 5:45 PM DATA SYSTEMS MANAGER Gender Identity Female 07/10/2021 6:40 AM DATA SYSTEMS MANAGER Sexual Orientation Not on file Occupation Industry Job Start Date Job End Date Not on file Not on file Not on file Not on file COVID-19 Exposure Response Date Recorded In the last month, have you been in contact with someone who was confirmed or suspected to have Coronavirus / COVID-19? No / Unsure 06/29/2021 1:51 PM DATA SYSTEMS MANAGER documented as of this encounter Functional Status [...] Date Author Status No 12/18/2018 9:00 AM BENTLEYT Tianna Tafoya, RN Active documented in this encounter Plan of Treatment Upcoming Encounters Date Type Department Care Team (Late st Contact Info) Description 03/14/2025 9:30 AM CDT Office Visit [facility] [place] [address] Mónica Gaffney MD [address] [place] [address] documented as of this encounter Visit Diagnoses Not on filedocumented in this encounter Additional Health Concerns Infection Onset Date Last Indicated Resolved Time COVID-19 Rule Out 07/10/2021 07/10/2021 07/10/2021 1:47 PM DATA SYSTEMS MANAGER documented as of this encounter Care Teams Behavioral Health Technician Relationship Specialty Start Date End Date Gray Brock MD [address] [place] [address] PCP - General FAMILY PRACTICE 12/15/18 04/02/22 Reilly rGant MD [address] [place] [phone] PCP - General FAMILY PRACTICE 04/03/22 Ruben Mg MD [address] [place] [address] Consulting Physician INTERVENTIONAL CARDIOLOGY 11/29/20 Lincoln Evans MD [address] [place] [address] Consulting Physician CLINICAL CARDIAC ELECTROPHYSIOLOGY 03/22/22 Mónica Gaffney MD [address] [place] [address] Consulting Physician CARDIOVASCULAR DISEASE 02/25/23 documented as of this encounter
--- OUTSIDE RECORDS SUMMARY | 2024-09-14 17:05 | XMS_ITS | Data Portability ---
Author Organization [id number] Address [address] [place] [address] Assessment No assessment recorded. Plan of Treatment Reminders Order Date Submit Date Provider Last Modified By Organization Details Last Modified Time Details Appointments TALK 30 2024 10:15A M PREETHI STILES MD Not available Not available Not available Lab None recorde d. Referral None recorde d. Procedures None recorde d. Surgeries None recorde d. Imaging US, pelvis, transab dominal + transva ginal 2024 025 [email or web address] [facility], [address], [place], [address], 09/01/2024 11:55:48 Medication Orders None recorde d. Patient TargetsNo targets recorded. Patient InstructionsNo instructions recorded. Reason for Referral None Reported. Results Created Date Observation Date Name Description Value Unit Range Abnormal Flag Note LastModifiedBy Organization Detail LastModifiedTime 09/11/19 25 09/10/2024 US, pelvi s, trans abdom inal + trans vagin al No observ ation record ed. [email or web address] [facility] [address], [place], [address], 09/13/2024 15:53:10 Result Notes None recorded. Problems Name Problem SNOMED Code Status Onset Date Resolution Date Notes Provider Name and Address Organization Details Recorded Time Polycystic ovary syndrome 469465479 Active [address] [facility] [address], [place], [address], [place] - [facility] 5 11:13:51 Endometriosis (clinical) 368970607 Active [address] [facility] [address], [place], [place], [address], [place] - [facility] 5 11:13:44 Fibromyalgia 235925841 Active [address] [facility] [address], [place], [place], [address], [place] - [facility] 5 11:13:46 Depressive disorder 13290134 Active 2024 [address] [facility] [address], [place], [place], [address], [place] - [facility] 5 11:13:42 Anxiety 80400998 Active 20[address] [facility] [address], [place], [place], [address], [place] - [facility] 5 11:13:40 Irritable bowel syndrome 42715313 Active 2024 [address] [facility] [address], [place], [place], [address], [place] - [facility] 5 11:13:47 Pain in pelvis 52836711 Active 2024 [address] [facility] [address], [place], [place], [address], [place] - [facility] 5 11:13:49 Problem Notes None recorded. Procedures Surgical History Date Name Laterality Status Provider Name and Address Organization Details Recorded Time 07/19/19 24 Date of Last Mammogram completed Abby Caruso [place] [facility] 08/24/2024 10:23:41 02/15/20 23 Date of Last Colonoscopy completed Abby Caruso [place] [facility] 08/24/2024 10:23:41 11/14/19 Date of Last Pap Smear completed Abby Caruso [place] [facility] 08/24/2024 10:23:41 Hysteroscopy [place] Abby Caruso [place] [facility] 08/24/2024 10:23:52 Endometrial Biopsy [place] Abby Caruso [place] [facility] 08/24/2024 10:23:52 Total Hyste[place] completed Abby Caruso [place] [facility] 08/24/2024 10:32:18 Colonoscopy completed Abby Caruso [place] [facility] 08/24/2024 10:23:52 Imaging Results Imaging Date Name Status LastModified by Organiz ation Details LastModified Time 09/10/2024 US, pelvis, transabdominal + transvaginal active [email or web address] [facility] [address], [place], [address], 09/13/2024 15:53:10 Procedure Notes None recorded. Medical Equipment None Reported. Allergies Allergen ID Allergen Name Allergen Category Reaction Reaction Severity Criticality Documentation Date Start Date Code Code System Note Provider Name and Address Organization Details Recorded Time 889632 Product containin g penicilli n (product) medicatio n Not available Not available Not available 08/24/2024 77083 8001 SNOMED Abby Caruso null, [place] - [facility] 5 10:23:35 999820 morphine medicatio n Not available Not available Not available 08/24/2024 7052 RxNorm Crystal Shady null, [place] - [facility] 5 10:23:35 065072 azithromy franklin medicatio n Not available Not available Not available 08/24/2024 96231 RxNorm Crystal Shady [place], [place] [facility] 5 10:23:35 189282 amoxicill in medicatio n Not available Not available Not available 08/24/2024 723 RxNorm Crystal Shady null, [place] - [facility] 5 10:23:35 Medications Name Sig Start Date [...] Updated DateTime 08/24/2024 152.4 cm 31.6 kg/m2 36407.25 g 148 mm[Hg] 96 mm[Hg] Abby Shady [facility] 5 10:23:31 Social History Question Answer Notes LastModified by Organizat ion Details LastModified Time Tobacco Smoking Status Current Every Day Smoker agjyw-O-lppy etienne Caruso [facility] 08/24/2024 10:31:45 Do You Have An Advance Directive? No [email or web address] Information not available 08/24/2024 What Is Your Level Of Alcohol Consumption? None [email or web address] Information not available 08/24/2024 If You Are , What Was Your Level Of Alcohol Consumption Prior To ? None [email or web address] Information not available 08/24/2024 What Is Your Level Of Caffeine Consumption? None [email or web address] Information not available 08/24/2024 Are You Currently Employed? Yes [email or web address] Information not available 08/24/2024 What Type Of Diet Are You Following? 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 [email or web address] Information not available 08/24/2024 Do You Use Any Illicit Or Recreational Drugs? No Information not available 08/24/2024 Sex: Unknown Functional Status None recorded. Mental Status None recorded. Family History Relationship Description Onset Age of this Age Resolved Age Notes LastModified by Organization Details LastModified Time Father Hypercholest erolemia [email or web address] Not available 08/24 10:23:38 Father Anxiety disorder [email or web address] Not available 08/24 10:23:38 Father Depressive disorder [email or web address] Not available 08/24 10:23:38 Mother Hypercholest erolemia [email or web address] Not available 08/24 10:23:38 Mother Anxiety disorder [email or web address] Not available 08/24 10:23:38 Mother Myocardial infarction Not available 08/07 10:23:38 Mother Cerebrovascu lar accident [email or web address] Not available 10:23:38 Mother Depressive disorder [email or web address] Not available 08/24 10:23:38 Mother Heart disease Not available 08/24 10:23:38 Maternal Grandmother Myocardial infarction Not available 08/07 10:23:38 Maternal Grandmother Heart disease [email or web address] Not available 08/24 10:23:38 Maternal Grandmother Osteoporosis Not availabl e 08/24/2024 10:23:38 Sister Hypercholest erolemia [email or web address] Not available 08/24 10:23:38 Sister Myocardial infarction [email or web address] Not available 08/07 10:23:38 Sister Cerebrovascu lar accident [email or web address] Not available 10:23:38 Sister Hyperthyroid ism [email or web address] Not available 08/24 10:23:38 Sister Depressive disorder [email or web address] Not available 08/24 10:23:38 Sister High risk [email or web address] Not available 08/24 10:23:38 Sister Heart disease [email or web address] Not available 08/24 10:23:38 Sister Family history of Viktoria thyroiditis [email or web address] Not available 10:30:54 Sister Family history of malignant neoplasm of thyroid Not available 08/24 10:31:05 Maternal Grandfather Depressive disorder Not available 08/24 10:23:38 Paternal Grandfather Depressive disorder [email or web address] Not available 08/24 10:23:38 Medical History Condition Response GI- Hemorrhoids Y Endocrinology-Other Y Psych- Depression Y Psych- Anxiety Disorder Y GI- Reflux/Ulcers Y GI- Irritable Bowel Syndrome Y GI- Colon Polyps Y Urology- Stones Y GI- Gallbladder Disease Y Gynecological History [...] SNOMED-CT Code Diagnosis ICD10 Code Diagnosis Note [id number] STEVE JARQUIN [id number] S [address]NY SARABIA_[address] [place] [phone] 08/24/2024 09:46:20 08/24/2024 11:02:47 Pain in pelvis 64206042 R10.2 -have US done-we will contact you [...] Member ID Guarantor Name 08/24/2024 1 AETNA BETTER HEALTH OF [place] ON OR AFTER 05/09/2020 (MEDICAID REPLACEMENT - HMO) Alice Deshpande [id number] Alice Deshpande Notes Date Note Type Note Provider Name [...] wanting to have endometriosis cleaned out again. -yaron Patient is here for consult. Patient states [...] complains of pelvic pain. STEVE JARQUIN [address] [facility] [address], [place], [address], [facility] 08/24/2024 11:15:26 OBGyn Episode No OBEpisode recorded.
--- NOTE | 2024-09-17 10:21 | WPDHOLTEREM ---
Holter/Event Monitor Holter/Event Monitor Date of procedure: 09/14/24 Holter/Event Procedure: 48 Hr Holter Monitor Indications: Palpitations Conclusion: 1. 48 hour holter monitor on 09/14/24. 2. Underlying rhythm is sinus rhythm. HR range 55-132 bpm; average HR 92 bpm. 3. There are 6 premature supraventricular complexes. No supraventricular tachycardia. 4. There are 138 premature ventricular complexes. No ventricular tachycardia. 5. No significant pauses greater than 2 seconds. 6. No symptoms available for correlation.
== END 2024-09-14 16:20 | disposition home or self-care (01) ==
PROVIDERS: PCP Family Medicine; Visit Provider Registered Nurse
DX: R60.0 Localized edema (principal)
CPT/HCPCS: 93225; 93226